=== PATIENT | male | born 1960 | race Caucasian/White ===

== ENCOUNTER 2022-11-03 19:10 | Emergency (ER) | payer MEDICARE, MEDICAID, SELFPAY ==
--- NOTE | ~2022-11-03 | CT_ITS ---
EXAMINATION: CT HEAD WITHOUT CONTRAST CLINICAL INFORMATION: Seizure COMPARISON: CT brain 11/11/2018. TECHNIQUE: Contiguous axial imaging was performed from the skull base to vertex without intravenous administration of contrast. This CT examination was performed using dose optimization techniques as appropriate, variously including the following: *Automated exposure control *Adjustment of mA and/or kV according to patient size (this includes techniques or standardized protocols for targeted exams where dose is matched to indication/reason for exam; i.e. extremities or head) *Use of iterative reconstruction technique DLP: 751 mGy-cm FINDINGS: There is no acute intra-axial, extra-axial bleed, masses or midline shift. There is no focal hypodensity seen to suspect any acute infarction evolution. There is no edema or midline shift. The lateral ventricles are symmetrical in size and configuration but enlarged. The ness to white matter differentiation is maintained normal. There is moderate cerebral atrophy likely secondary to seizure medicine. No focal parenchymal lesions seen suspected infarct. Bone windows reveal no calvarial abnormality. There is no scalp soft tissue abnormality. Bilateral paranasal sinuses and mastoid air cells are well-aerated. The craniovertebral junction and the C1-C2 alignment is normal. Visualized bilateral paranasal sinuses and mastoid air cells are well-aerated. CT/CT head/brain wo IV con IMPRESSION: No acute intracranial process seen. There is mild cerebral and moderate cerebral volume loss. No major change compared to previous study 11/11/2018.
[2022-11-03 19:21] VITALS: BP 113/51; BP 128/64; PULSE 73; PULSE 80; RESP 17; TEMP 36.6; O2SAT 100; O2SAT 98; BMI 19.8
--- NOTE | 2022-11-03 19:47 | PC.NURSE ---
pt FERNANDA from [facility], this rn assumed care @ 192. seizure precautions in place. VS stable. DR Rawls made aware of pt . pt seen by MD at this time awaiting orders at this time
--- NOTE | 2022-11-03 19:47 | ED.SEIZURE ---
HPI - Seizure General Chief Complaint: Seizure Stated Complaint: SEIZURE Time Seen by Provider: 11/03/22 19:23 Source: EMS Mode of arrival: EMS Limitations: other (Nonverbal at baseline, history of dementia and Down syndrome) History of Present Illness HPI Narrative: Patient [facility] the [facility]. Earlier this afternoon, patient had seizure, patient was eating a, started seizing for approximately 30 seconds, then became postictal for about a minute. By the time patient reached the emergency room, according to his caretakers, the patient was at baseline. Patient unable to give any significant history. Patient had verbal at baseline, may answer yes no questions occasionally. Related Data Allergies Allergy/AdvReac Type Severity Reaction Status Date / Time gluten [GLUTEN] Allergy Unknown UNK Unverified 07/31/20 18:09 Iodinated Contrast Media Allergy Unknown UNK Unverified 07/31/20 18:09 [IVP DYE] Review of Systems Review of Systems: Yes Unobtainable due to mental condition PMFSH Past Medical History Medical History (Updated 11/03/22 @ 22:47 by Vannesa Rawls MD) Alzheimer's dementia Celiac disease Down syndrome Social History Social History Advance Directives: No Advance Directives Information Provided: No Physical Exam Vital Signs: Vital Signs: Last Vital Signs Temp 97.2 F 11/03/22 22:00 Pulse 67 11/03/22 22:00 Resp 15 11/03/22 22:00 BP 95/55 L 11/03/22 22:00 Pulse Ox 99 11/03/22 22:00 O2 Del Method 11/03/22 22:00 BMI result Body Mass Index 19.8 Const: Other: Appearance: Alert. No acute distress. Eyes: Pupils equal, round and reactive to light. ENT: Pharynx normal. Neck: Normal inspection. Neck supple. No lymph nodes noted. No crepitus CVS: Normal heart rate and rhythm. Pulses normal. Normal S1 and S2 Respiratory: No respiratory distress. Breath sounds normal. No Wheezing. No rales Abdomen: Soft and nontender. No rigidity. No distention. Skin: Skin warm and dry. Normal skin color. Normal skin turgor. Extremities: No lower extremity edema. No Lacerations. No Rash Neuro: CN 2 through 12 grossly intact Psych: calm, cooperative Course Course Course Narrative: According to the [facility]itentiary staff, the patient did not fall or hit his head. Patient stood up, history of sitting. A tonic-clonic movements in a postictal period of approximately 1 minute. At this time, patient is back to baseline. Labs and CT scan is pending. It is possible that we may not be able to get a clear picture with a CT scan. Patient's labs are at baseline, lactic acid within normal limits, it is possible the patient may not have had a full seizure, possible pseudo-seizure. However, all of his labs were all baseline and CT scan of the head negative. I discussed with the [facility]iary staff that for a first-time seizure , starting anti seizure medication is not recommended. If patient has recurrent seizures, then he will need a full neurologic workup and likely starting medications. Here in the ED, patient has remained stable, patient has baseline low blood pressures in the high 80s and 90s per penitentiary staff. No seizure activity has been witnessed in the ED. Medical Decision Making Lab Data Result Diagrams: 11/03/22 20:25 11/03/22 20:25 Labs: Lab Results 11/03/22 11/03/22 11/03/22 Range/Units 20:25 20:25 20:25 WBC 4.6 L (4.8-10.8) X10*3/uL RBC 3.48 L (4.60-5.80) X10*6/uL Hgb 12.0 L (14.0-18.0) g/dl Hct 36.2 L (42.0-52.0) % MCV 104.0 H (80.0-98.0) fL MCH 34.5 H (27.0-33.0) pg MCHC 33.1 (31.0-36.0) g/dl RDW 15.2 (11.0-16.0) % Plt Count 150 L (160-400) X10*3/uL MPV 9.8 (9.4-12.4) fL Immature Gran % (Auto) 0.2 (0.0-0.4) % Neut % (Auto) 50.5 (45-73) % Lymph % (Auto) 37.0 (20-40) % [place] % (Auto) 8.8 (2-11) % Eos % (Auto) 2.8 (0-4) % Baso % (Auto) 0.7 (0-2) % Lymph # (Auto) 1.7 (1.2-4.9) X10*3/uL [place] # (Auto) 0.4 (0.1-1.2) X10*3/uL Eos # (Auto) 0.1 (0.0-0.4) X10*3/uL Baso # (Auto) 0.0 (0.0-0.2) X10*3/uL Abs Immat Gran (auto) 0.01 (0.00-0.03) X10*3/uL Absolute Neuts (auto) 2.3 (2.0-8.3) x10*3/uL Absolute Nucleated RBC 0.000 (0.0-0.012) X10*3/uL Nucleated RBC % (auto) 0.0 (0.0-0.2) /100WBC Sodium 139 (135-145) mmol/L Potassium 4.1 (3.3-5.1) mmol/L Chloride 104 (96-108) mmol/L Carbon Dioxide 27 (22-29) mmol/L Anion Gap 12 (12-20) BUN 22 H (9-16) mg/dL Creatinine 1.03 (0.5-1.4) mg/dL Estim Creat Clear Calc 45.9 Estimated GFR > 60 Random Glucose 102 (60-115) mg/dL Lactic Acid (0.5-2.0) mmol/L Calcium 8.8 (8.4-10.2) mg/dL Magnesium 2.0 (1.6-2.6) mg/dL Total Bilirubin 0.4 (0.0-1.0) mg/dL Direct Bilirubin < 0.2 (0.0-0.5) mg/dL AST 24 (5-37) U/L ALT 10 (0-40) U/L Alkaline Phosphatase 77 (39-117) U/L Total Protein 7.5 (6.5-8.0) g/dL Albumin 3.4 L (3.5-5.0) g/dL COVID-19 (MARYLOU) Negative (Negative) COVID-19 Clin Com See Note 11/03/22 Range/Units 20:36 WBC (4.8-10.8) X10*3/uL RBC (4.60-5.80) X10*6/uL Hgb (14.0-18.0) g/dl Hct (42.0-52.0) % MCV (80.0-98.0) fL MCH (27.0-33.0) pg MCHC (31.0-36.0) g/dl RDW (11.0-16.0) % Plt Count (160-400) X10*3/uL MPV (9.4-12.4) fL Immature Gran % (Auto) (0.0-0.4) % Neut % (Auto) (45-73) % Lymph % (Auto) (20-40) % [place] % (Auto) (2-11) % Eos % (Auto) (0-4) % Baso % (Auto) (0-2) % Lymph # (Auto) (1.2-4.9) X10*3/uL [place] # (Auto) (0.1-1.2) X10*3/uL Eos # (Auto) (0.0-0.4) X10*3/uL Baso # (Auto) (0.0-0.2) X10*3/uL Abs Immat Gran (auto) (0.00-0.03) X10*3/uL Absolute Neuts (auto) (2.0-8.3) x10*3/uL Absolute Nucleated RBC (0.0-0.012) X10*3/uL Nucleated RBC % (auto) (0.0-0.2) /100WBC Sodium (135-145) mmol/L Potassium (3.3-5.1) mmol/L Chloride (96-108) mmol/L Carbon Dioxide (22-29) mmol/L Anion Gap (12-20) BUN (9-16) mg/dL Creatinine (0.5-1.4) mg/dL Estim Creat Clear Calc Estimated GFR Random Glucose (60-115) mg/dL Lactic Acid 1.5 (0.5-2.0) mmol/L Calcium (8.4-10.2) mg/dL Magnesium (1.6-2.6) mg/dL Total Bilirubin (0.0-1.0) mg/dL Direct Bilirubin (0.0-0.5) mg/dL AST (5-37) U/L ALT (0-40) U/L Alkaline Phosphatase (39-117) U/L Total Protein (6.5-8.0) g/dL Albumin (3.5-5.0) g/dL COVID-19 (MARYLOU) (Negative) COVID-19 Clin Com Discharge Plan Discharge Clinical Impression: New onset seizure Patient Disposition: Home, Self-Care Instructions: Generalized Tonic Clonic Seizures (ED) Additional Instructions: Please follow-up with your primary care physician tomorrow. If you have any worsening or new symptoms, please return to the emergency room or call 911
--- NOTE | 2022-11-03 19:55 | PC.NURSE ---
resident sterile supervisor Alexsandra arrived at pt bedside. spoke with this rn. states that pt was sitting at dinner table, stood up, sat back down and began shaking. states there was no fall and no head stroke. Dr Rawls notified of this
[2022-11-03 20:00] VITALS: BP 101/58; PULSE 66; RESP 16; TEMP 36.4; O2SAT 99
[2022-11-03 20:30] LABS: MANUAL DIFF FLAG NO
[2022-11-03 20:31] LABS: Basophils Percent Auto 0.7 % (0-2); Eosinophils Absolute Auto 0.1 X10*3/uL (0.0-0.4); Eosinophils Percent Auto 2.8 % (0-4); Hematocrit 36.2 % (42.0-52.0); Imm Gran Abs Auto 0.01 X10*3/uL (0.00-0.03); Imm Gran Pct Auto 0.2 % (0.0-0.4); Lymphocytes Absolute Auto 1.7 X10*3/uL (1.2-4.9); Mean Corpuscular HGB Conc 33.1 g/dl (31.0-36.0); Mean Corpuscular Hemoglobin 34.5 pg (27.0-33.0); Mean Platelet Volume 9.8 fL (9.4-12.4); Monocytes Absolute Auto 0.4 X10*3/uL (0.1-1.2); Monocytes Percent Auto 8.8 % (2-11); Neutrophils Absolute Auto 2.3 x10*3/uL (2.0-8.3); Neutrophils Percent Auto 50.5 % (45-73); Platelet Count 150 X10*3/uL (160-400); Red Blood Count 3.48 X10*6/uL (4.60-5.80); Red Cell Distribution Width 15.2 % (11.0-16.0); White Blood Count 4.6 X10*3/uL (4.8-10.8)
[2022-11-03 20:46] LABS: COVID-19 Test Negative (Negative)
[2022-11-03 20:50] LABS: Alanine Aminotransferase 10 U/L (0-40); Albumin Level 3.4 g/dL (3.5-5.0); Alkaline Phosphatase 77 U/L (39-117); Anion Gap 12 (12-20); Aspartate Amino Transferase 24 U/L (5-37); Bilirubin Direct < 0.2 mg/dL (0.0-0.5); Bilirubin Total 0.4 mg/dL (0.0-1.0); Blood Urea Nitrogen 22 mg/dL (9-16); Calcium 8.8 mg/dL (8.4-10.2); Carbon Dioxide 27 mmol/L (22-29); Chloride 104 mmol/L (96-108); Creatinine Clr Calc Pharmacy 45.9; Estimated Glomerular Filt Rate > 60; Glucose Random 102 mg/dL (60-115); Potassium 4.1 mmol/L (3.3-5.1); Sodium 139 mmol/L (135-145); Total Protein 7.5 g/dL (6.5-8.0)
[2022-11-03 20:53] LABS: Lactic Acid 1.5 mmol/L (0.5-2.0)
[2022-11-03 21:16] VITALS: BP 91/42; PULSE 66; RESP 11
--- NOTE | 2022-11-03 21:19 | PC.NURSE ---
dr carson made aware of BP 91/42. pt staff member states pt takes midodrine. no new orders at this time
[2022-11-03 22:00] VITALS: BP 95/55; PULSE 67; RESP 15; TEMP 36.2; O2SAT 99
[2022-11-03 22:25] VITALS: BP 102/51; PULSE 70; RESP 14; O2SAT 98
[2022-11-03 22:49] VITALS: BP 92/58; PULSE 70; RESP 12; O2SAT 99
== END 2022-11-03 23:26 | disposition home or self-care (01) ==
PROVIDERS: Emergency Provider Emergency Medicine; PCP Internal Medicine
DX: R56.9 Unspecified convulsions (principal); Z20.822 Contact with and (suspected) exposure to COVID-19; G30.9 Alzheimer's disease, unspecified; F02.80 Dementia in other diseases classified elsewhere, unspecified severity, without behavioral disturbance, psychotic disturbance, mood disturbance, and anxiety; Q90.9 Down syndrome, unspecified
CPT/HCPCS: 70450; 80048; 80076; 83605; 83735; 85025; 87040; 87635; 99284

== ENCOUNTER 2023-01-08 19:07 | Emergency (ER) | payer MEDICARE, MEDICAID, SELFPAY ==
--- NOTE | ~2023-01-08 | CT_ITS ---
EXAMINATION: CT CHEST, ABDOMEN AND PELVIS WITHOUT CONTRAST CLINICAL INFORMATION: SBO? Nausea, vomiting and question of food bolus? Esophogeal obstruction? COMPARISON: CT abdomen pelvis 11/26/2018 TECHNIQUE: Multidetector volumetric imaging was performed from the thoracic inlet through the pubic symphysis without IV contrast. Sagittal and coronal reformatted images were obtained on the technologist's workstation. This CT examination was performed using dose optimization techniques as appropriate, variously including the following: *Automated exposure control *Adjustment of mA and/or kV according to patient size (this includes techniques or standardized protocols for targeted exams where dose is matched to indication/reason for exam; i.e. extremities or head) *Use of iterative reconstruction technique DLP: 1126 mGy-cm FINDINGS: CHEST: Lung: The lungs are clear without focal opacity or nodule. Mediastinum: There is an aberrant right subclavian artery that arises as the last branch of the aortic arch, passing behind the esophagus. Heart size is normal. No mediastinal or hilar lymphadenopathy is seen. No mediastinal emphysema is present. Pericardium/Pleura: No significant effusion. No pleural mass or thickening. Chest Wall/Axilla: Unremarkable ABDOMEN/PELVIS: Peritoneal Space: No significant free air or free fluid identified. Liver, Gallbladder, Biliary Tree: The liver is enlarged measuring 19.7 cm in greatest dimension. Attenuation of the liver appears greater than the spleen. No focal hepatic lesion or biliary ductal dilatation is present. The gallbladder is unremarkable with no evidence of radiopaque gallstones, gallbladder wall thickening, or obvious pericholecystic inflammatory changes. Pancreas: Unremarkable Spleen: Unremarkable Adrenal Glands: Unremarkable Kidneys and Ureters: The kidneys are normal in size, shape, and attenuation. Bilateral nonobstructing nephrolithiasis is present with increased stone burden when compared to the prior study. There is bilateral mild hydronephrosis and dilatation of proximal ureters. In the region of the distal ureter on the right, there is a new calcification which was not present on the prior exam measuring 3 mm which may represent an obstructing calculus. No renal masses are seen. Bladder: The bladder is markedly distended and slightly lobular with a symmetrically thickened wall. Gastrointestinal Tract: There is dilatation of the colon with a very redundant sigmoid with loops as large as 7.5 cm. There is some minimal thickening of the rectosigmoid wall. The small bowel does not appear to be dilated. The appendix is not seen with certainty but there is no evidence of appendicitis. Abdominal Wall: No significant hernia is appreciated. Lymph Nodes: No lymphadenopathy. Vascular: The aorta appears normal.. The IVC appears unremarkable. PELVIC VISCERA: Unremarkable OSSEUS STRUCTURES: Marked degenerative changes are noted in the spine with complete compression fracture and anterior wedging of L3. No bony destructive lesions are seen. CT/CT abdomen pelvis wo IV con IMPRESSION: 1. No evidence of esophageal obstruction. An apparent right subclavian is present which can rarely cause dysphagia lusoria, a rare condition characterized by swallowing impairment secondary to extrinsic compression of the esophagus by an aberrant right subclavian artery. 2. Bilateral nonobstructing nephrolithiasis with increased stone burden when compared to the prior study. 3. Bilateral hydronephrosis with a 3 mm calcification in the region of the distal right ureter which may represent an obstructing calculus. CT urography may be useful for further evaluation. 4. Marked dilatation of the sigmoid with some mild thickening of the rectosigmoid wall. No evidence of small bowel obstruction. 5. Incidental note made of hepatomegaly and degenerative changes in the spine with compression fracture of L3. Fleischner guidelines were followed.
--- NOTE | ~2023-01-08 | CT_ITS ---
EXAMINATION: CT SOFT TISSUE NECK WITHOUT CONTRAST CLINICAL INFORMATION: Question food bolus COMPARISON: None TECHNIQUE: Helical imaging was performed in the axial plane with generation of coronal and sagittal reformatted images. This CT examination was performed using dose optimization techniques as appropriate, variously including the following: *Automated exposure control *Adjustment of mA and/or kV according to patient size (this includes techniques or standardized protocols for targeted exams where dose is matched to indication/reason for exam; i.e. extremities or head) *Use of iterative reconstruction technique DLP: 272 mGy-cm FINDINGS: Exam quality degraded by motion artifact. No unexpected foreign body identified within the nasopharynx, oropharynx, hypopharynx. Piriform sinuses are distended with air. Unremarkable appearance of the laryngeal structures. Somewhat patulous air-filled upper thoracic esophagus noted. No gross soft tissue mass or lymphadenopathy. Thyroid gland is not seen and is either surgically absent or atrophic. Incidental finding of a aberrant right subclavian artery with retroesophageal course. Visualized upper lungs appear clear. Visualized intracranial contents grossly unremarkable, limited assessment. Visualized paranasal sinuses and mastoid air cells normally aerated. No acute fracture or suspicious appearing osseous lesion. Advanced diffuse cervical spondylosis. Disc degenerative changes in the imaged upper thoracic spine as well. Multilevel severe central spinal canal stenosis. CT/CT soft tissue neck wo IV con IMPRESSION: 1. Somewhat limited exam due to motion artifact. No unexpected foreign body identified within the nasopharynx, oropharynx, hypopharynx. 2. Patulous air-filled upper thoracic esophagus. 3. Advanced cervical spondylosis with multilevel severe central spinal canal stenosis.
[2023-01-08 19:19] VITALS: PULSE 75; O2SAT 100
[2023-01-08 19:25] VITALS: BMI 25.7
[2023-01-08 19:30] VITALS: BP 110/65; PULSE 74; RESP 15; O2SAT 97
--- NOTE | 2023-01-08 19:37 | ED.GENADULT ---
HPI - General Adult General Chief complaint: General Medical Stated complaint: Diff Swallowing/ Non verbal baseline Time Seen by Provider: 01/08/23 19:31 Source: RN notes reviewed and other (prison staff) Mode of arrival: ambulatory Limitations: no limitations History of Present Illness HPI narrative: [age] year male with history of in/disability, dementia, macrocytic anemia, esophageal stricture, celiac disease, Down syndrome, presents to ED for presentation of food bolus. Patient was sent from longterm due to choking since 17:45. His state patient was eating pork veggies and potatoes that was not pureed enough and then all the sudden started choking and since then has not improved. States patient cannot tolerate any liquids or food and vomits everything he ingested. He denies any abdominal pain. Patient nonverbal. Related Data Previous Rx's Medication Instructions Recorded cefuroxime axetil 250 mg tablet 250 mg PO BID 7 days #14 tabs 01/09/23 tamsulosin 0.4 mg capsule (Flomax) 0.4 mg PO DAILY 7 days #7 caps 01/09/23 Allergies Allergy/AdvReac Type Severity Reaction Status Date / Time gluten [GLUTEN] Allergy Unknown UNK Unverified 07/31/20 18:09 Iodinated Contrast Media Allergy Unknown UNK Unverified 07/31/20 18:09 [IVP DYE] Review of Systems Review of Systems: Food bolus. choking, drooling, and vomitting Yes all other systems are reviewed and are negative [facility] Past Medical History Medical History (Updated 01/09/23 @ 01:44 by KRISTEL Mackey) Alzheimer's dementia Celiac disease Down syndrome Social History Social History Advance Directives: No Advance Directives Information Provided: Yes Physical Exam ED Vital Signs: Vital Signs - 24 hr 01/08/23 19:30 01/09/23 00:20 Temperature 98.2 F Pulse Rate 74 69 Respiratory Rate 15 11 L Blood Pressure 110/65 94/61 Pulse Oximetry 97 Oxygen Delivery Method Room Air Room Air BMI result Body Mass Index 25.7 Const General: cooperative, well developed, alert, awake, Physically active and in distress (chocking, vomitting, and drooling) Orientation/consciousness: oriented to person, oriented to place, oriented to time and patient oriented x3 HENMT Head: Yes normal to inspection, Yes No palpable skull fracture present, Yes normocephalic, Yes atraumatic and No abrasion Eyes General: appearance normal, both eyes and all related structures Neck Neck: Yes normal visual inspection, Yes full ROM, Yes no lymphadenopathy, Yes no meningeal signs, Yes trachea midline, Yes supple, No anterior neck swelling and No tender Chest Chest palpation & inspection: normal inspection of the chest and normal palpation of entire chest wall Resp Effort & Inspection: normal respiratory effort and able to speak in complete sentences Auscultation: clear to auscultation bilaterally Cardio Jugular venous distension: no JVD Heart sounds: S1 normal heart sound present and S2 normal heart sound present GI Inspection: Yes normal to inspection and No abdominal wall ecchymosis Palpation (GI): Soft to palpation, not firm, nontender, no guarding and not rigid General: No CVA tenderness and Yes no CVA tenderness Back/Spine/Pelvis Back: no CVA tenderness, No CVA tenderness and No back tenderness Skin General skin exam: no rashes or lesions noted and elasticity normal Neuro Other: Negative facial droop. Negative slurred speech. All extremities equal strength 5+. [id number] and rapid hand movement intact. Negative Romberg. Negative pronator drift. NIH score 0. General: oriented to person, oriented to place, oriented to time, patient oriented x3, gait normal, tone normal, moves all extremities, Normal light touch and pain sensation, no meningeal signs, no focal motor deficits and CN's II-XI intact bilaterally Extrem General: Yes normal to inspection and Yes full ROM Psych Appearance: grossly normal, well kempt and not disheveled Course Course Course Narrative: Patient presented like food bolus. patient is chocking, drooling, vomitting, and not able to tolerate any oral puree or liquid Return was confirmed with staff member and longterm. Glucagon ordered. Labs fluids ordered. Reevaluation(s) Reevaluation #1: Patient given 2 mg of IV glucagon total. Patient sent for imaging mentions no small bowel obstruction and also sees any dilation of the esophagus due to history of esophageal stricture. Also check for food bolus. Patient now able to tolerate p.o. and liquids. Patient baseline food arer Puree rate. Patient ate applesauce and drink apple juice without any issues. Waiting for results of imaging. Patient looks better than initial presentation Time: 21:49 Reevaluation #2: Patient sleeping comfortably in bed. Esophageal food bolus resolved. Patient CT scan of chest states subclavian artery behind esophagus causing rare condition called dysphagia lusoria. This was discussed with Dr. Mars Supervising ED Attending and he reviewed patient's imaging and states this very unlikely and states otherwise patient can still follow up outpatient with Gastroenterology. Chocking due to food bolus caused by known esophageal stricture. Food bolus resolved. patient ate whole cart of apple suace and cart of apple juice. patient has kidney stone but not /abdominal symptoms. Time: 00:22 Medications Administered Discontinued Medications Generic Name Dose Route Start Last Admin Trade Name Freq PRN Reason Stop Dose Admin Glucagon 1 mg 01/08/23 19:37 01/08/23 19:43 Glucagon,Human Recombinant 1 Mg/Ml Vial IVPUSH 01/08/23 19:38 1 mg ONCE ONE Administration Glucagon 1 mg 01/08/23 20:00 01/08/23 20:05 Glucagon,Human Recombinant 1 Mg/Ml Vial IVPUSH 01/08/23 20:01 1 mg ONCE ONE Administration Sodium Chloride 1,000 mls @ 999 mls/hr 01/08/23 19:45 01/08/23 21:58 Ns IV 01/08/23 20:45 Infused .Q1H1M STA Infusion Medical Decision Making Medical Decision Making [place] Narrative: 62-year-old male presents to the ED for chocking on food, drooling, nausea, vomitting, and not able to tolerate any PO. Patient's history of esophageal stricture, severe intellectual disability, Alzheimer's. Patient was worked up as food bolus. Patient had labs, imaging, and given glucagon. Differential Diagnosis Differential Diagnoses: The differential diagnosis associated with the presentation includes (Food bolus, small-bowel obstruction, GERD, ) Admission/Observation Consideration of admission/observation: Escalation of care including admission/observation considered Lab Data [place] Lab Attestation statement: I reviewed the patient's lab results. 01/08/23 19:59 01/08/23 19:59 Labs: Lab Results 01/08/23 01/08/23 01/08/23 Range/Units 19:59 19:59 19:59 WBC 5.7 (4.8-10.8) X10*3/uL RBC 3.44 L (4.60-5.80) X10*6/uL Hgb 12.0 L (14.0-18.0) g/dl Hct 35.5 L (42.0-52.0) % MCV 103.2 H (80.0-98.0) fL MCH 34.9 H (27.0-33.0) pg MCHC 33.8 (31.0-36.0) g/dl RDW 15.2 (11.0-16.0) % Plt Count 177 (160-400) X10*3/uL MPV 9.7 (9.4-12.4) fL Immature Gran % (Auto) 0.5 H (0.0-0.4) % Neut % (Auto) 59.9 (45-73) % Lymph % (Auto) 29.2 (20-40) % [place] % (Auto) 8.3 (2-11) % Eos % (Auto) 1.2 (0-4) % Baso % (Auto) 0.9 (0-2) % Lymph # (Auto) 1.7 (1.2-4.9) X10*3/uL [place] # (Auto) 0.5 (0.1-1.2) X10*3/uL Eos # (Auto) 0.1 (0.0-0.4) X10*3/uL Baso # (Auto) 0.1 (0.0-0.2) X10*3/uL Abs Immat Gran (auto) 0.03 (0.00-0.03) X10*3/uL Absolute Neuts (auto) 3.4 (2.0-8.3) x10*3/uL Absolute Nucleated RBC 0.000 (0.0-0.012) X10*3/uL Nucleated RBC % (auto) 0.0 (0.0-0.2) /100WBC PT 12.2 (10.0-13.1) SEC INR 1.1 (0.9-1.1) APTT 34.1 (26.0-36.4) SEC Sodium 140 (135-145) mmol/L Potassium 4.2 (3.3-5.1) mmol/L Chloride 103 (96-108) mmol/L Carbon Dioxide 31 H (22-29) mmol/L Anion Gap 10 L (12-20) BUN 16 (9-16) mg/dL Creatinine 1.11 (0.5-1.4) mg/dL Estim Creat Clear Calc 58.5 Estimated GFR > 60 Random Glucose 158 H (60-115) mg/dL Calcium 8.6 (8.4-10.2) mg/dL Total Bilirubin 0.3 (0.0-1.0) mg/dL AST 23 (5-37) U/L ALT 13 (0-40) U/L Alkaline Phosphatase 85 (39-117) U/L Total Protein 7.9 (6.5-8.0) g/dL Albumin 3.4 L (3.5-5.0) g/dL Urine Color Urine Appearance Urine pH (5.0-9.0) Ur Specific [place] (1.005-1.025) Urine Protein (Neg-Trace) mg/dL Urine Glucose (UA) (Negative) mg/dL Urine Ketones (Negative) mg/dL Urine Blood (Negative) Urine Nitrite (Negative) Ur Leukocyte Esterase (Negative) Urine RBC (0-2) /HPF Urine WBC (0-5) /HPF Ur Squamous Epith Cells (0-2) /HPF Urine Bacteria (None Seen) Hyaline Casts (0-2) /LPF COVID-19 (MARYLOU) (Negative) COVID-19 Clin Com 01/08/23 01/09/23 Range/Units 20:00 00:28 WBC (4.8-10.8) X10*3/uL RBC (4.60-5.80) X10*6/uL Hgb (14.0-18.0) g/dl Hct (42.0-52.0) % MCV (80.0-98.0) fL MCH (27.0-33.0) pg MCHC (31.0-36.0) g/dl RDW (11.0-16.0) % Plt Count (160-400) X10*3/uL MPV (9.4-12.4) fL Immature Gran % (Auto) (0.0-0.4) % Neut % (Auto) (45-73) % Lymph % (Auto) (20-40) % [place] % (Auto) (2-11) % Eos % (Auto) (0-4) % Baso % (Auto) (0-2) % Lymph # (Auto) (1.2-4.9) X10*3/uL [place] # (Auto) (0.1-1.2) X10*3/uL Eos # (Auto) (0.0-0.4) X10*3/uL Baso # (Auto) (0.0-0.2) X10*3/uL Abs Immat Gran (auto) (0.00-0.03) X10*3/uL Absolute Neuts (auto) (2.0-8.3) x10*3/uL Absolute Nucleated RBC (0.0-0.012) X10*3/uL Nucleated RBC % (auto) (0.0-0.2) /100WBC PT (10.0-13.1) SEC INR (0.9-1.1) APTT (26.0-36.4) SEC Sodium (135-145) mmol/L Potassium (3.3-5.1) mmol/L Chloride (96-108) mmol/L Carbon Dioxide (22-29) mmol/L Anion Gap (12-20) BUN (9-16) mg/dL Creatinine (0.5-1.4) mg/dL Estim Creat Clear Calc Estimated GFR Random Glucose (60-115) mg/dL Calcium (8.4-10.2) mg/dL Total Bilirubin (0.0-1.0) mg/dL AST (5-37) U/L ALT (0-40) U/L Alkaline Phosphatase (39-117) U/L Total Protein (6.5-8.0) g/dL Albumin (3.5-5.0) g/dL Urine Color Yellow Urine Appearance Cloudy Urine pH 7.0 (5.0-9.0) Ur Specific [place] 1.015 (1.005-1.025) Urine Protein Trace (Neg-Trace) mg/dL Urine Glucose (UA) Negative (Negative) mg/dL Urine Ketones Negative (Negative) mg/dL Urine Blood Negative (Negative) Urine Nitrite Negative (Negative) Ur Leukocyte Esterase Large (3+) H (Negative) Urine RBC 0-2 (0-2) /HPF Urine WBC >50 H (0-5) /HPF Ur Squamous Epith Cells 0-2 (0-2) /HPF Urine Bacteria Trace (None Seen) Hyaline Casts 0-2 (0-2) /LPF COVID-19 (MARYLOU) Negative (Negative) COVID-19 Clin Com See Note Independent Interpretation I performed an independent interpretation of an: CT Scan Radiology Impression Discussion of test interpretation with radiology: I have reviewed the radiologist's reading. Independent Historian Clinical information obtained from an independent historian. History obtained from or confirmed by: Other (prison staff member) Prescription Management I considered prescription management with: Antibiotic Discharge Plan Discharge Clinical Impression: Food impaction of esophagus, Acute UTI, Calculus, kidney Patient Disposition: Home, Self-Care Instructions: Kidney Stones (ED), Urinary Tract Infection in Men (ED), Food Impaction (ED) Additional Instructions: You were seen in the ED for food bolus that resolved. Your labs came back normal. Your urine shows a urinary tract infection. Your CT scan reading shows right kidney stone and also right subclavian artery behind you're esophagus which can rarely cause dysphagia lusoria. You will need follow-up with Gastroenterology and Urology. Return to the ED immediately for any choking, drooling, inability tolerate solid food/liquid, chest pain, shortness of breath abdominal pain, blood in the urine, fever, chills, or any other concerning symptoms. Recommend pureed diet. Recommend crushing prescribed meds. Prescriptions: New cefuroxime axetil 250 mg tablet 250 mg PO BID 7 Days Qty: 14 0RF tamsulosin [Flomax] 0.4 mg capsule 0.4 mg PO DAILY 7 Days Qty: 7 0RF Referrals: [facility] Gastroenterology Services [Provider Group] (Resolved food bolus. esophageal stricuture. possible dysphagia lusoria) [facility] Urology Services [Provider Group] (RIght ureter stone. uTI) Print Language: Monegasque
[2023-01-08] MEDS: 0.9 % Sodium Chloride 1,000 ML 999 ML IV (20:01)
[2023-01-08 20:06] LABS: MANUAL DIFF FLAG NO
[2023-01-08 20:09] LABS: Basophils Absolute Auto 0.1 X10*3/uL (0.0-0.2); Basophils Percent Auto 0.9 % (0-2); Eosinophils Absolute Auto 0.1 X10*3/uL (0.0-0.4); Eosinophils Percent Auto 1.2 % (0-4); Hematocrit 35.5 % (42.0-52.0); Imm Gran Abs Auto 0.03 X10*3/uL (0.00-0.03); Imm Gran Pct Auto 0.5 % (0.0-0.4); Lymphocytes Absolute Auto 1.7 X10*3/uL (1.2-4.9); Lymphocytes Percent Auto 29.2 % (20-40); Mean Corpuscular HGB Conc 33.8 g/dl (31.0-36.0); Mean Corpuscular Hemoglobin 34.9 pg (27.0-33.0); Mean Corpuscular Volume 103.2 fL (80.0-98.0); Mean Platelet Volume 9.7 fL (9.4-12.4); Monocytes Absolute Auto 0.5 X10*3/uL (0.1-1.2); Monocytes Percent Auto 8.3 % (2-11); Neutrophils Absolute Auto 3.4 x10*3/uL (2.0-8.3); Neutrophils Percent Auto 59.9 % (45-73); Platelet Count 177 X10*3/uL (160-400); Red Blood Count 3.44 X10*6/uL (4.60-5.80); Red Cell Distribution Width 15.2 % (11.0-16.0); White Blood Count 5.7 X10*3/uL (4.8-10.8)
[2023-01-08 20:15] LABS: INTERNATIONAL NORM RATIO 1.1 (0.9-1.1); Prothrombin Time 12.2 SEC (10.0-13.1)
[2023-01-08 20:17] LABS: Partial Thromboplastin Time 34.1 SEC (26.0-36.4)
[2023-01-08 20:22] LABS: COVID-19 Test Negative (Negative); IDNOW Serial# 6674DD1D
[2023-01-08 20:33] LABS: Alanine Aminotransferase 13 U/L (0-40); Albumin Level 3.4 g/dL (3.5-5.0); Alkaline Phosphatase 85 U/L (39-117); Anion Gap 10 (12-20); Aspartate Amino Transferase 23 U/L (5-37); Bilirubin Total 0.3 mg/dL (0.0-1.0); Blood Urea Nitrogen 16 mg/dL (9-16); Calcium 8.6 mg/dL (8.4-10.2); Carbon Dioxide 31 mmol/L (22-29); Chloride 103 mmol/L (96-108); Creatinine Clr Calc Pharmacy 58.5; Estimated Glomerular Filt Rate > 60; Glucose Random 158 mg/dL (60-115); Potassium 4.2 mmol/L (3.3-5.1); Sodium 140 mmol/L (135-145); Total Protein 7.9 g/dL (6.5-8.0)
--- NOTE | 2023-01-08 20:34 | MHC.EDTECH ---
Pt was incontinent. Pt was given owen care and repositioned.
--- NOTE | 2023-01-08 21:58 | PC.NURSE ---
pt casework specialist from [facility] at bedside. per ita morales po challenge performed. pt provided with apple sauce and apple juice. pt tolerated well with no s/s of chocking, vomiting, or spitting up. jolanta morales at bedside during performance of po challenge. [facility] remains at bedside at this time, instructed to use callbell for any new needs
[2023-01-09 00:20] VITALS: BP 94/61; PULSE 69; RESP 11; TEMP 36.8
[2023-01-09 00:34] LABS: Appearance Urine Cloudy; Color Urine Yellow; Glucose Urine UA Negative (Negative); Leukocyte Esterase Urine Large (3+) (Negative); Nitrite Urine Negative (Negative); Specific Gravity - Urine 1.015 (1.005-1.025); UMIC TRIGGER UACC YES; Urine Blood Negative (Negative); Urine Ketones Negative (Negative); Urine Protein Trace mg/dL (Neg-Trace)
[2023-01-09 01:14] LABS: Bacteria Urine Trace (None Seen); Hyaline Casts Urine 0-2 /LPF (0-2); RBC Urine 0-2 /HPF (0-2); Squamous Epithelial Cell Urine 0-2 /HPF (0-2); UACC Culture Trigger YES; WBC Urine >50 /HPF (0-5)
[2023-01-09 02:51] VITALS: BP 95/48; PULSE 67; RESP 12; TEMP 36.7; O2SAT 99
--- NOTE | 2023-01-09 02:52 | PC.NURSE ---
pt patient case manager from retirement at bedside at this time.provided with discharge packet at this time. verbalized understanding of discharge packet. iv removed. [place] catheter removed. pt brought to patient case manager care via [place] by vision impaired teacher
== END 2023-01-09 02:54 | disposition home or self-care (01) ==
PROVIDERS: Physician Assistant; Emergency Provider Emergency Medicine Emergency Medical Services
DX: T18.128A Food in esophagus causing other injury, initial encounter (principal); X58.XXXA Exposure to other specified factors, initial encounter; N39.0 Urinary tract infection, site not specified; N20.0 Calculus of kidney; R11.10 Vomiting, unspecified; Z20.822 Contact with and (suspected) exposure to COVID-19; K90.0 Celiac disease; D53.9 Nutritional anemia, unspecified; G30.9 Alzheimer's disease, unspecified; F02.80 Dementia in other diseases classified elsewhere, unspecified severity, without behavioral disturbance, psychotic disturbance, mood disturbance, and anxiety; Q90.9 Down syndrome, unspecified; Y93.89 Activity, other specified; Y92.049 Unspecified place in boarding-house as the place of occurrence of the external cause; Y99.9 Unspecified external cause status
CPT/HCPCS: 70490; 71250; 74176; 80053; 81001; 81003; 85025; 85610; 85730; 87086; 87088; 87186; 87635; 96361; 96374; 96376; 99284; J1610

== ENCOUNTER 2023-01-28 11:03 | Emergency (ER) | payer MEDICARE, MEDICAID, SELFPAY ==
[2023-01-28 11:28] VITALS: BP 100/64; PULSE 83; RESP 18; TEMP 37.1; O2SAT 96; BMI 25.0
--- NOTE | 2023-01-28 11:28 | ED_ITS ---
HPI - General Adult General Chief complaint: Extremity Problem Stated complaint: Swollen, warm to touch R foot Time Seen by Provider: 01/28/23 11:36 Source: other (senior care staff) Mode of arrival: wheelchair Limitations: other (patient is non-verbal at baseline) History of Present Illness HPI narrative: Patient is a 63 year old assigned male at with a history of down syndrome, alzheimers, and baseline non-verbal presenting to the emergency department today with right great toe redness and swelling. Patient's senior care staff states that the patient was at his day program when they noticed right great toe redness and swelling. retirement staff states that the patient was just recently on antibiotics for something else at the beginning of this month. Staff states that the patient is acting otherwise appropriate, eating and drinking well. Severity: mild Severity scale (1-10): 2 Relieving factors: none Exacerbating factors: none Associated symptoms: denies other symptoms Treatments prior to arrival: none Related Data Previous Rx's Medication Instructions Recorded cefuroxime axetil 250 mg tablet 250 mg PO BID 7 days #14 tabs 01/09/23 tamsulosin 0.4 mg capsule (Flomax) 0.4 mg PO DAILY 7 days #7 caps 01/09/23 ibuprofen 800 mg tablet 800 mg PO Q6H PRN pain #14 tabs 01/28/23 Allergies Allergy/AdvReac Type Severity Reaction Status Date / Time gluten [GLUTEN] Allergy Unknown UNK Unverified 07/31/20 18:09 Iodinated Contrast Media Allergy Unknown UNK Unverified 07/31/20 18:09 [IVP DYE] Review of Systems Review of Systems: Yes Other (patient is non-verbal at baseline) Constitutional: Constitutional: Denies fever(s) Eyes: Eyes: Denies eye discharge ENT: Denies neck mass Cardiovascular: Cardiovascular: Denies syncope, Denies dyspnea and Denies dyspnea on exertion Respiratory: Respiratory: Denies cough, Denies dyspnea and Denies dyspnea on exertion Gastrointestinal: Gastrointestinal: Reports no additional gastrointestinal complaints, Denies abdominal pain, Denies melena, Denies hematochezia, Denies change in bowel habits and Denies change in stool character Genitourinary: Genitourinary: Reports no additional male genitourinary complaints, Denies hematuria, Denies oliguria, Denies difficulty urinating, Denies dysuria, Denies urinary frequency, Denies urinary hesitancy, Denies urinary incontinence and Denies urinary urgency Musculoskeletal: Musculoskeletal: Reports no additional musculoskeletal complaints, Denies numbness and Denies tingling Comments: right great toe redness and swelling Neurologic: Denies syncope, Denies numbness and Denies tingling Psychiatric: Psychiatric: Reports no additional psychiatric complaints Endocrine: Endocrine: Reports no additional endocrine complaints Hematologic/Lymphatic: Hematologic/Lymphatic: Reports no additional hematologic/lymphatic complaints Allergic/Immunologic: Allergic/Immunologic: Reports no additional allergic/immunologic complaints [facility] Past Medical History Attestation statement: The following information was validated with the patient. (all information was validated by senior care staff) Source: old records reviewed, nursing notes reviewed and other (senior care staff and senior care paperwork) Medical History (Updated 01/28/23 @ 11:35 by KRISTEL Shepherd) Alzheimer's dementia Celiac disease Down syndrome Social History Social History Advance Directives: No Advance Directives Information Provided: Yes Physical Exam ED Vital Signs: Vital Signs - 24 hr 01/28/23 11:28 Temperature 98.8 F Pulse Rate 83 Respiratory Rate 18 Blood Pressure 100/64 Pulse Oximetry 96 Oxygen Delivery Method Room Air BMI result Body Mass Index 25.0 Const General: cooperative, no acute distress, alert and awake Nutritional Appearance: well nourished Limitations: no limitations HENMT Head: Yes normal to inspection and Yes atraumatic Ears: hearing grossly normal bilaterally and external ears normal General nose exam: Normal external nose present, no nasal discharge noted and no epistaxis Face and sinus: Yes normal facial exam, No abrasion and No laceration Mouth: Normal oral and palatal mucosa present, no drooling and no muffled voice Eyes General: appearance normal, both eyes and all related structures Periorbital: periorbital findings normal Eyelids: Yes eyelids normal Conjunctivae: conjunctivae normal Pupils: Equal, round and reactive pupils present EOM: EOMs intact bilaterally Neck Neck: Yes normal visual inspection, Yes full ROM and Yes no lymphadenopathy Chest Chest palpation & inspection: normal inspection of the chest Resp Effort & Inspection: normal respiratory effort and able to speak in complete sentences Auscultation: clear to auscultation bilaterally Cardio Rate: regular rate Rhythm: regular rhythm GI Inspection: Yes normal to inspection Neuro General: moves all extremities Cranial nerves: Yes Equal, round and reactive pupils present Extrem Other: minimal swelling and redness to the right great toe General: Yes full ROM and Yes capillary refill normal Psych Appearance: grossly normal Mental Status: mental status grossly normal Affect: normal affect Attitude: cooperative Thought process: Normal thought process present Thought content: Normal thought content present Insight: Good insight present (Psych) Medical Decision Making Medical Decision Making MDM Narrative: Patient is a 63 year old assigned male at with a history of down syndrome and alzheimers with non-verbal status at baseline presenting to the emergency department today with right great toe redness and swelling. Patient's physical exam showed minimal right great toe redness and swelling consistent with gout. I explained my physical exam findings to the patient and the patient's senior care staff. I answered all questions asked by the patient's senior care staff. I stressed the importance of the patient following up with his primary care provider. I stressed the importance of the patient returning to the emergency department immediately if his symptoms were to worsen or if he were to develop any dizziness, shortness of breath, difficulty breathing, chest pain, blurry vision, loss of vision, nausea, vomiting, abdominal pain, fever, chills, back pain, or any other complaints. Patient's senior care staff verbalized agreement and understanding with this treatment plan and discharge. Differential Diagnosis Differential Diagnoses: The differential diagnosis associated with the presentation includes gout Independent Historian Clinical information obtained from an independent historian. History obtained from or confirmed by: Other (senior care staff) Discharge Plan Discharge Clinical Impression: Gout Patient Disposition: Home, Self-Care Instructions: Gout (ED) Additional Instructions: Follow up with your primary care provider. Return to the emergency department immediately if your symptoms worsen or if you develop any dizziness, shortness of breath, difficulty breathing, chest pain, blurry vision, loss of vision, nausea, vomiting, abdominal pain, fever, chills, back pain, or any other complaints. Prescriptions: New ibuprofen 800 mg tablet 800 mg PO Q6H PRN (Reason: pain) Qty: 14 0RF Rx Instructions: Start medication upon receiving No Action cefuroxime axetil 250 mg tablet 250 mg PO BID 7 Days Qty: 14 0RF tamsulosin [Flomax] 0.4 mg capsule 0.4 mg PO DAILY 7 Days Qty: 7 0RF Referrals: Hong Griffith III, MD [Primary Care Provider] - Interventions: ED Discharge Assessment Last Done: 01/28/23 11:38 Discharge Date/Time: 01/28/23 11:40 Print Language: Polish
== END 2023-01-28 11:40 | disposition home or self-care (01) ==
LOC: HO.ED 11:40
PROVIDERS: Emergency Provider Emergency Medicine; PCP Internal Medicine
DX: M10.9 Gout, unspecified (principal)
CPT/HCPCS: 99282; 99283

== ENCOUNTER 2024-08-02 18:42 | Emergency (ER) | payer MEDICARE, MEDICAID, SELFPAY ==
[2024-08-02 18:50] VITALS: BP 108/84; PULSE 84
[2024-08-02 19:06] VITALS: BP 113/71; PULSE 81; RESP 16; TEMP 37.3; O2SAT 96; BMI 23.5
--- NOTE | 2024-08-02 20:00 | ECG_ITS ---
Test Reason : ANXIETY Blood Pressure : / mmHG Vent. Rate : 076 BPM Atrial Rate : 076 BPM P-R Int : 118 ms QRS Dur : 076 ms QT Int : 398 ms P-R-T Axes : 040 060 050 degrees QTc Int : 447 ms Normal sinus rhythm Normal ECG When compared with ECG of 27-NOV-2018 13:46, ST no longer elevated in Anterior leads Nonspecific T wave abnormality, improved in Inferior leads Referred By: Vannesa Rawls Electronically Signed By:FELISA ARDON
--- NOTE | 2024-08-02 20:01 | PC.NURSE ---
in to see pt, pt has a sitter from the detention, she states, the patient's bp was low, he was crying, more than normal, banging at his head, and he was ness in color. Pt is non verbal, but he is crying and putting his hand to his head, when asked about pain.
--- NOTE | 2024-08-02 22:58 | ED_ITS ---
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 Vannesa Rawls HPI narrative: Patient comes in the emergency room from a [place] [facility]. According to the staff, patient has been crying more than usual. According to the staff, earlier today patient had a witnessed syncopal episode. Patient was taken to [facility], evaluated for syncope and then discharged. Since patient got home, the staff reports that he is being acting different, more tearful. Patient is unable to verbalize his needs. Related Data Home Medications ?Medication ?Instructions ?Recorded ?Confirmed acetaminophen 325 mg capsule 650 mg PO Q6H PRN 04/08/23 (Tylenol) bacitracin 500 unit/gram topical 1 appl topical TID 04/08/23 ointment benzonatate 100 mg capsule 100 mg PO BID PRN 04/08/23 ketoconazole 2 % topical cream 1 appl topical BID 04/08/23 lactulose 10 gram/15 mL oral 10 g PO DAILY 04/08/23 solution (Enulose) levothyroxine 50 mcg tablet 56 mcg PO QWEEK 04/08/23 lorazepam 1 mg tablet (Ativan) 1 mg PO DAILY PRN 04/08/23 menthol 0.44 %-zinc oxide 20.6 % 1 appl topical QID PRN 04/08/23 topical ointment (Calmoseptine) mirtazapine 7.5 mg tablet 7.5 mg PO BEDTIME 04/08/23 nystatin 100,000 unit/gram topical 1 appl topical DAILY 04/08/23 cream Previous Rx's ?Medication ?Instructions ?Recorded cefuroxime axetil 500 mg tablet 500 mg PO Q12H 10 days #20 tabs 04/08/23 fluconazole 150 mg tablet 150 mg PO Q3D 2 doses #2 tabs 04/08/23 (Diflucan) nystatin 100,000 unit/gram topical 1 appl topical BID 14 days #60 04/08/23 powder grams cefuroxime axetil 250 mg tablet 250 mg PO BID #14 tabs 08/03/24 Allergies Allergy/AdvReac Type Severity Reaction Status Date / Time gluten [GLUTEN] Allergy Unknown UNK Verified 08/02/24 19:10 Iodinated Contrast Media Allergy Unknown UNK Verified 08/02/24 19:10 [IVP DYE] Review of Systems 2 Review of Systems: Yes Unobtainable due to mental condition COUNTS INCLUDE 234 BEDS AT THE [facility] Past Medical History Medical History Alzheimer's dementia Down syndrome Celiac disease Social History Social History Patient Tobacco Use Status: Never used Tobacco Smoked in Last 30 Days: No Use of substances other than those prescribed or required for medical reasons: No Advance Directives: No Advance Directives Information Provided: No Do you have a plan to hurt others: No Plan Physical Exam 2 Vital Signs: Vital Signs: Last Vital Signs Temp 99.0 F 08/03/24 00:50 Pulse 72 08/03/24 00:50 Resp 20 08/03/24 00:50 BP 96/70 08/03/24 00:50 Pulse Ox 98 08/03/24 00:50 O2 Del Method Room Air 08/03/24 00:50 BMI result Body Mass Index 23.5 Const: Other: Appearance: Alert. Oriented X3. No acute distress. Eyes: Pupils equal, round and reactive to light. ENT: Pharynx normal. Neck: Normal inspection. Neck supple. No lymph nodes noted. No crepitus CVS: Normal heart rate and rhythm. Pulses normal. Normal S1 and S2 Respiratory: No respiratory distress. Breath sounds normal. No Wheezing. No rales Abdomen: Soft and nontender. No rigidity. No distention. Skin: Skin warm and dry. Normal skin color. Normal skin turgor. Extremities: No lower extremity edema. No Lacerations. No Rash Neuro: Oriented X 3. No motor deficit. No sensory deficit. Moving all extremities. No slurred speech. CN 2 through 12 grossly intact Psych: calm, cooperative, intermittently laughing and becomes tearful Course Course Course Narrative: Patient is unwilling to verbalize his needs. We will repeat lab work. So far, patient looks comfortable, no obvious signs of trauma, patient is not in distress. Vitals normal Medical Decision Making Medical Decision Making MDM Narrative: My interpretation of labs: Patient's hematology and chemistry stable. Patient does have a UTI. Positive nitrates. Since patient is unable to express his symptoms, we will go ahead and treat. Differential Diagnosis Differential Diagnoses: The differential diagnosis associated with the presentation includes (Anxiety, depression, UTI) Lab Data MDM Lab Attestation statement: I reviewed the patient's lab results. 08/02/24 23:08 08/02/24 23:08 Labs: Lab Results 08/02/24 08/03/24 Range/Units 23:08 00:54 WBC 4.9 (4.8-10.8) X10*3/uL RBC 3.27 L (4.60-5.80) X10*6/uL Hgb 11.6 L (14.0-18.0) g/dl Hct 33.3 L (42.0-52.0) % MCV 101.8 H (80.0-98.0) fL MCH 35.5 H (27.0-33.0) pg MCHC 34.8 (31.0-36.0) g/dl RDW 15.0 (11.0-16.0) % Plt Count 143 L (160-400) X10*3/uL MPV 9.9 (9.4-12.4) fL Immature Gran % (Auto) 0.8 H (0.0-0.4) % Neut % (Auto) 48.6 (45-73) % Lymph % (Auto) 34.1 (20-40) % [place] % (Auto) 15.5 H (2-11) % Eos % (Auto) 0.4 (0-4) % Baso % (Auto) 0.6 (0-2) % Lymph # (Auto) 1.7 (1.2-4.9) X10*3/uL [place] # (Auto) 0.8 (0.1-1.2) X10*3/uL Eos # (Auto) 0.0 (0.0-0.4) X10*3/uL Baso # (Auto) 0.0 (0.0-0.2) X10*3/uL Abs Immat Gran (auto) 0.04 H (0.00-0.03) X10*3/uL Absolute Neuts (auto) 2.4 (2.0-8.3) x10*3/uL Absolute Nucleated RBC 0.000 (0.0-0.012) X10*3/uL Nucleated RBC % (auto) 0.0 (0.0-0.2) /100WBC Sodium 140 (135-145) mmol/L Potassium 4.1 (3.3-5.1) mmol/L Chloride 106 (96-108) mmol/L Carbon Dioxide 28 (22-29) mmol/L Anion Gap 10 L (12-20) BUN 23 H (9-16) mg/dL Creatinine 0.96 (0.5-1.4) mg/dL Estim Creat Clear Calc 50.5 Estimated GFR > 60 Random Glucose 102 (60-115) mg/dL Calcium 8.6 (8.4-10.2) mg/dL Total Bilirubin 0.2 (0.0-1.0) mg/dL Direct Bilirubin < 0.2 (0.0-0.5) mg/dL AST 25 (5-37) U/L ALT 13 (0-40) U/L Alkaline Phosphatase 78 (39-117) U/L Troponin I High Sens 7.0 (<3.5-35.0) ng/L Total Protein 6.9 (6.5-8.0) g/dL Albumin 3.3 L (3.5-5.0) g/dL Lipase 140 H (8-78) U/L Urine Color Yellow Urine Appearance Clear Urine pH 6.0 (5.0-9.0) Ur Specific [place] 1.020 (1.005-1.025) Urine Protein Trace (Neg-Trace) mg/dL Urine Glucose (UA) Negative (Negative) mg/dL Urine Ketones Negative (Negative) mg/dL Urine Blood Negative (Negative) Urine Nitrite Positive H (Negative) Ur Leukocyte Esterase Moderate (2+) H (Negative) Urine RBC 0-2 (0-2) /HPF Urine WBC 11-20 (0-5) /HPF Ur Squamous Epith Cells 0-2 (0-2) /HPF Urine Bacteria None Seen (None Seen) Hyaline Casts 0-2 (0-2) /LPF Discharge Plan Discharge Clinical Impression: Acute UTI Patient Disposition: Home, Self-Care Instructions: Urinary Tract Infection in Men (ED) Additional Instructions: Please follow-up with your primary care physician tomorrow. If you have any worsening or new symptoms, please return to the emergency room or call 911 Prescriptions: New cefuroxime axetil 250 mg tablet 250 mg PO BID Qty: 14 0RF No Action levothyroxine 50 mcg tablet 56 mcg PO QWEEK mirtazapine 7.5 mg tablet 7.5 mg PO BEDTIME lorazepam [Ativan] 1 mg tablet 1 mg PO DAILY PRN bacitracin 500 unit/gram ointment 1 appl topical TID menthol-zinc oxide [Calmoseptine] 0.44-20.6 % ointment 1 appl topical QID PRN lactulose [Enulose] 10 gram/15 mL solution 10 g PO DAILY benzonatate 100 mg capsule 100 mg PO BID PRN acetaminophen [Tylenol] 325 mg capsule 650 mg PO Q6H PRN ketoconazole 2 % cream 1 appl topical BID nystatin 100,000 unit/gram cream 1 appl topical DAILY cefuroxime axetil 500 mg tablet 500 mg PO Q12H 10 Days Qty: 20 0RF fluconazole [Diflucan] 150 mg tablet 150 mg PO Q3D Qty: 2 0RF Rx Instructions: Take 1 tablet by mouth today, then repeat in 3 days. Then stop this medication nystatin 100,000 unit/gram powder 1 appl topical BID 14 Days Qty: 60 1RF Rx Instructions: Apply to groin and testicle every 12 hours for 14 days Print Language: Hungarian
[2024-08-02 23:17] LABS: MANUAL DIFF FLAG NO
[2024-08-02 23:19] LABS: Basophils Percent Auto 0.6 % (0-2); Eosinophils Percent Auto 0.4 % (0-4); Hematocrit 33.3 % (42.0-52.0); Hemoglobin 11.6 g/dl (14.0-18.0); Imm Gran Abs Auto 0.04 X10*3/uL (0.00-0.03); Imm Gran Pct Auto 0.8 % (0.0-0.4); Lymphocytes Absolute Auto 1.7 X10*3/uL (1.2-4.9); Lymphocytes Percent Auto 34.1 % (20-40); Mean Corpuscular HGB Conc 34.8 g/dl (31.0-36.0); Mean Corpuscular Hemoglobin 35.5 pg (27.0-33.0); Mean Corpuscular Volume 101.8 fL (80.0-98.0); Mean Platelet Volume 9.9 fL (9.4-12.4); Monocytes Absolute Auto 0.8 X10*3/uL (0.1-1.2); Monocytes Percent Auto 15.5 % (2-11); Neutrophils Absolute Auto 2.4 x10*3/uL (2.0-8.3); Neutrophils Percent Auto 48.6 % (45-73); Platelet Count 143 X10*3/uL (160-400); Red Blood Count 3.27 X10*6/uL (4.60-5.80); White Blood Count 4.9 X10*3/uL (4.8-10.8)
[2024-08-02 23:33] LABS: Alanine Aminotransferase 13 U/L (0-40); Albumin Level 3.3 g/dL (3.5-5.0); Alkaline Phosphatase 78 U/L (39-117); Anion Gap 10 (12-20); Aspartate Amino Transferase 25 U/L (5-37); Bilirubin Direct < 0.2 mg/dL (0.0-0.5); Bilirubin Total 0.2 mg/dL (0.0-1.0); Blood Urea Nitrogen 23 mg/dL (9-16); Calcium 8.6 mg/dL (8.4-10.2); Carbon Dioxide 28 mmol/L (22-29); Chloride 106 mmol/L (96-108); Creatinine Clr Calc Pharmacy 50.5; Estimated Glomerular Filt Rate > 60; Glucose Random 102 mg/dL (60-115); Lipase 140 U/L (8-78); Potassium 4.1 mmol/L (3.3-5.1); Sodium 140 mmol/L (135-145); Total Protein 6.9 g/dL (6.5-8.0)
[2024-08-03 00:50] VITALS: BP 96/70; PULSE 72; RESP 20; TEMP 37.2; O2SAT 98
--- NOTE | 2024-08-03 00:55 | PC.NURSE ---
pt was striaght cath, using a pedi cath, urine obtained and sent to lab, pt tolerated well
[2024-08-03 01:00] LABS: Appearance Urine Clear; Color Urine Yellow; Glucose Urine UA Negative (Negative); Leukocyte Esterase Urine Moderate (2+) (Negative); Nitrite Urine Positive (Negative); UMIC TRIGGER UACC YES; Urine Blood Negative (Negative); Urine Ketones Negative (Negative); Urine Protein Trace mg/dL (Neg-Trace)
[2024-08-03 01:12] LABS: Bacteria Urine None Seen (None Seen); Hyaline Casts Urine 0-2 /LPF (0-2); RBC Urine 0-2 /HPF (0-2); Squamous Epithelial Cell Urine 0-2 /HPF (0-2); UACC Culture Trigger YES
[2024-08-03] MEDS: cefuroxime axetiL 250 MG TABLET PO (01:49)
[2024-08-03 02:14] VITALS: BP 99/62; PULSE 72; RESP 18; TEMP 37.2; O2SAT 99
== END 2024-08-03 02:15 | disposition home or self-care (01) ==
PROVIDERS: Emergency Provider Emergency Medicine
DX: N39.0 Urinary tract infection, site not specified (principal); G30.9 Alzheimer's disease, unspecified; F02.80 Dementia in other diseases classified elsewhere, unspecified severity, without behavioral disturbance, psychotic disturbance, mood disturbance, and anxiety
CPT/HCPCS: 36415; 51701; 80048; 80076; 81001; 81003; 83690; 84484; 85025; 87086; 87088; 87186; 93005; 99285

== ENCOUNTER 2024-11-08 11:42 | Observation (INO) | payer MEDICARE, MEDICAID, SELFPAY ==
--- NOTE | ~2024-11-08 | CT_ITS ---
EXAMINATION: CT ABDOMEN AND PELVIS WITHOUT CONTRAST CLINICAL INFORMATION: No BM or flatus and 5 days. COMPARISON: 01/08/2023. TECHNIQUE: Multidetector volumetric imaging was performed from the superior aspect of the liver through the pubic symphysis. Sagittal and coronal reformatted images were obtained on the technologist's workstation. This CT examination was performed using dose optimization techniques as appropriate, variously including the following: *Automated exposure control *Adjustment of mA and/or kV according to patient size (this includes techniques or standardized protocols for targeted exams where dose is matched to indication/reason for exam; i.e. extremities or head) *Use of iterative reconstruction technique DLP: 621 mGy-cm FINDINGS: LUNG BASES: -Lung bases demonstrate respiratory motion artifact with mild thickening of the small airways and dependent atelectasis. No effusions. Heart size normal. Mild dilatation of the distal esophagus. LIVER, GALLBLADDER, AND BILIARY TREE: The liver is normal in size, shape, and attenuation. No suspicious focal hepatic lesion or biliary ductal dilatation is present. There is a 1 cm simple cyst in segment 4A. The gallbladder is unremarkable with no evidence of radiopaque gallstones, gallbladder wall thickening, or obvious pericholecystic inflammatory changes. PANCREAS: Unremarkable. SPLEEN: Unremarkable. ADRENAL GLANDS: Unremarkable. KIDNEYS AND URETERS: -There are are several bilateral nonobstructing calculi in the lower poles of both kidneys, the larger on the left measures 5 mm, and the largest on the right measures 3 mm. -Kidneys otherwise normal without hydronephrosis or mass. -Ureters are normal. BLADDER: -The bladder is pushed anteriorly due to the stool ball in the rectal vault. -There is mild wall thickening posteriorly abutting the large rectal stool ball, likely mass effect. -There is a small right-sided bladder diverticulum present. -No definite mass or calculus. GASTROINTESTINAL TRACT: -There is abundant amount of stool throughout the colon and rectum. -There is a stool ball in the rectal vault measuring up to 10.7 x 8.7 x 3.4 cm. There is mild rectal wall thickening. -There is a mobile cecum, which is located in the epigastric region. The appendix is not well seen although there are no features of appendicitis. ABDOMINAL WALL: Mild abdominal distention. No discrete hernia, mass, or abnormal lymph nodes. LYMPH NODES: No lymphadenopathy present. VASCULAR: Unremarkable. PELVIC VISCERA: Unremarkable. OSSEOUS STRUCTURES: -There are significant degenerative spinal changes present, with chronic appearing compression deformities of L3, L4. There are sclerotic degenerative facet changes spanning L3-S1. Mild hip joint degenerative changes and SI joint degenerative changes are present. CT/CT abdomen pelvis wo IV con IMPRESSION: 1. Rectal fecal impaction, with large stool ball in the rectal vault measuring approximately 10.7 x 8.7 x 3.4 cm (AP, TRV, CC). Minimal associated rectal wall thickening. 2. Abundant fecal material seen throughout the remainder of the colon, findings consistent with obstipation. 3. There is no evidence of small bowel dilatation or obstruction. There is no free intraperitoneal air. There is no ascites. 4. There is a mobile cecum, which is located in the epigastric region ventrally. 5. There are bilateral nonobstructing renal calculi measuring up to 5 mm. No hydronephrosis. 6. There is urinary bladder has been displaced ventrally from the abundant stool in the rectal vault. No discrete mass or calculus. Electronically signed by: Earnest Monson MD 11/08/2024 01:51 PM [facility]
[2024-11-08 11:54] VITALS: BP 106/59; BP 110/60; PULSE 62; PULSE 81; RESP 16; TEMP 36.7; O2SAT 100; O2SAT 97; BMI 21.0
--- NOTE | 2024-11-08 12:25 | ECG_ITS ---
Test Reason : WEAKNESS Blood Pressure : / mmHG Vent. Rate : 077 BPM Atrial Rate : 077 BPM P-R Int : 106 ms QRS Dur : 070 ms QT Int : 398 ms P-R-T Axes : 024 058 059 degrees QTc Int : 450 ms Sinus rhythm with short [place] Otherwise normal ECG When compared with ECG of 02-AUG-2024 20:37, No significant change was found Referred By: Stacey Silverman Electronically Signed By:LEÓN LEACH MD
--- NOTE | 2024-11-08 12:35 | ED_ITS ---
HPI - General Adult General Chief complaint: Abdominal Pain Stated complaint: CONSTIPATION X3D FROM SNF PER EMS Time Seen by Provider: 11/08/24 11:47 Source: EMS, RN notes reviewed, old records reviewed and other (usp staff) Mode of arrival: EMS History of Present Illness ED Provider: Stacey Silverman PA-C HPI narrative: 64-year-old male with a past medical history of Down syndrome, nonverbal, Alzheimer's dementia, celiac disease, presenting to ED from [facility] for constipation without BM or passing flatus x5 days. History obtained from staff who reports patient appears pale, decreased p.o. intake/appetite, and noted patient to be unbalanced when ambulating at day program. No reported falls or injury. No reported abdominal pain, vomiting, fever, dysuria/hematuria or urinary retention. Related Data Home Medications ?Medication ?Instructions ?Recorded ?Confirmed acetaminophen 325 mg capsule 650 mg PO Q6H PRN 04/08/23 (Tylenol) bacitracin 500 unit/gram topical 1 appl topical TID 04/08/23 ointment benzonatate 100 mg capsule 100 mg PO BID PRN 04/08/23 ketoconazole 2 % topical cream 1 appl topical BID 04/08/23 lactulose 10 gram/15 mL oral 10 g PO DAILY 04/08/23 solution (Enulose) levothyroxine 50 mcg tablet 56 mcg PO QWEEK 04/08/23 lorazepam 1 mg tablet (Ativan) 1 mg PO DAILY PRN 04/08/23 menthol 0.44 %-zinc oxide 20.6 % 1 appl topical QID PRN 04/08/23 topical ointment (Calmoseptine) mirtazapine 7.5 mg tablet 7.5 mg PO BEDTIME 04/08/23 nystatin 100,000 unit/gram topical 1 appl topical DAILY 04/08/23 cream Previous Rx's ?Medication ?Instructions ?Recorded cefuroxime axetil 500 mg tablet 500 mg PO Q12H 10 days #20 tabs 04/08/23 fluconazole 150 mg tablet 150 mg PO Q3D 2 doses #2 tabs 04/08/23 (Diflucan) nystatin 100,000 unit/gram topical 1 appl topical BID 14 days #60 04/08/23 powder grams cefuroxime axetil 250 mg tablet 250 mg PO BID #14 tabs 08/03/24 Allergies Allergy/AdvReac Type Severity Reaction Status Date / Time gluten [GLUTEN] Allergy Unknown UNK Verified 11/08/24 11:58 Iodinated Contrast Media Allergy Unknown UNK Verified 11/08/24 11:58 [IVP DYE] Review of Systems 2 Review of Systems: Yes all other systems are reviewed and are negative Constitutional: Constitutional: Reports as per [facility] Past Medical History Attestation statement: The following information was validated with the patient. Source: old records reviewed Medical History Alzheimer's dementia Down syndrome Celiac disease Social History Social History Patient Tobacco Use Status: Never used Tobacco Advance Directives: Yes Advance Directives Information Provided: No Advance Directives on File: No Do you have a plan to hurt others: No Plan Physical Exam ED Vital Signs: Vital Signs - 24 hr 11/08/24 11:54 11/08/24 16:00 Temperature 98.0 F 98.4 F Pulse Rate 81 74 Respiratory Rate 16 16 Blood Pressure 106/59 L 98/53 L Pulse Oximetry 100 95 Oxygen Delivery Method Room Air Room Air BMI result Body Mass Index 21.0 Const General: cooperative, healthy appearing and no acute distress Limitations: no limitations HENMT Head: Yes normal to inspection and Yes atraumatic Ears: hearing grossly normal bilaterally General nose exam: Normal external nose present Face and sinus: Yes normal facial exam Eyes General: appearance normal, both eyes and all related structures EOM: EOMs intact bilaterally Neck Neck: Yes normal visual inspection and Yes no meningeal signs Resp Effort & Inspection: normal respiratory effort and no respiratory distress Auscultation: clear to auscultation bilaterally Cardio Rate: regular rate Heart sounds: S1 normal heart sound present and S2 normal heart sound present GI Inspection: Yes normal to inspection Palpation (GI): Soft to palpation, nontender, no guarding and not rigid Skin Rashes: no rashes Wounds: no wounds Neuro General: gait normal, tone normal, moves all extremities and no meningeal signs Cranial nerves: Yes CN's II-XII intact bilaterally Gait exam (Neuro): Normal gait present Extrem General: Yes normal to inspection Course Course Course Narrative: CT abdomen pelvis wo IV con IMPRESSION: 1. Rectal fecal impaction, with large stool ball in the rectal vault measuring approximately 10.7 x 8.7 x 3.4 cm (AP, TRV, CC). Minimal associated rectal wall thickening. 2. Abundant fecal material seen throughout the remainder of the colon, findings consistent with obstipation. 3. There is no evidence of small bowel dilatation or obstruction. There is no free intraperitoneal air. There is no ascites. 4. There is a mobile cecum, which is located in the epigastric region ventrally. 5. There are bilateral nonobstructing renal calculi measuring up to 5 mm. No hydronephrosis. 6. There is urinary bladder has been displaced ventrally from the abundant stool in the rectal vault. No discrete mass or calculus. > fecal disimpaction attempted however minimal stool palpable. Unable to reach stool ball. Will consult General surgery, Dr. Esqueda > states stool ball too high for finger to remove, recommended combination of enemas, tap water or soapsuds and MiraLax plus lactulose. Recommended admission to hospitalist if no immediate improvement, & exhausting all medical management prior to considering general anesthesia/OR -1616--lipase 139, chronically elevated. Labs otherwise reassuring Patient has been given enema, MiraLax, lactulose in the ED without BM > case discussed with hospitalist, Dr. Montalvo Medications Administered Discontinued Medications Generic Name Dose Route Start Last Admin Trade Name Freq PRN Reason Stop Dose Admin Lactulose 20 gm 11/08/24 14:45 11/08/24 15:22 Lactulose 20 Gm/30 Ml Solution PO 11/08/24 14:46 20 gm ONCE ONE Administration Lorazepam 1 mg 11/08/24 12:25 11/08/24 12:36 Lorazepam 1 Mg Tablet PO 11/08/24 12:26 1 mg ONCE ONE Administration Polyethylene Glycol 17 gm 11/08/24 14:45 11/08/24 15:22 Polyethylene Glycol 3350 17 Gm Powd.Pack PO 11/08/24 14:46 17 gm ONCE ONE Administration Medical Decision Making Medical Decision Making MDM Narrative: 64-year-old male with a past medical history of Down syndrome, nonverbal, Alzheimer's dementia, celiac disease, presenting to ED from [facility] for constipation without BM or passing flatus x5 days. On exam vital signs stable, NAD, nontoxic appearing, at baseline mentation. Ambulating with steady gait, no ataxia. Abdomen soft/nontender. Concern for constipation vs fecal impaction vs SBO. Lower suspicion for CVA/TIA or ICH. Lower suspicion for acute diverticulitis/colitis or appendicitis without tenderness on exam Plan: Labs, UA, CT, rectal exam, re-evaluate Please refer to course for remaining clinical decision making, interpretation of labs/imaging results, and discussions with consultants and/or family members. Differential Diagnosis Differential Diagnoses: The differential diagnosis associated with the presentation includes As above Admission/Observation Consideration of admission/observation: Escalation of care including admission/observation considered Consult Healthcare Provider Management of the patient was discussed with: Hospitalist and Patient Clerical Assistant Lab Data MDM Lab Attestation statement: I reviewed the patient's lab results. 11/08/24 15:33 11/08/24 15:33 Labs: Lab Results 11/08/24 Range/Units 15:33 WBC 5.7 (4.8-10.8) X10*3/uL RBC 3.40 L (4.60-5.80) X10*6/uL Hgb 11.8 L (14.0-18.0) g/dl Hct 34.8 L (42.0-52.0) % MCV 102.4 H (80.0-98.0) fL MCH 34.7 H (27.0-33.0) pg MCHC 33.9 (31.0-36.0) g/dl RDW 15.0 (11.0-16.0) % Plt Count 127 L (160-400) X10*3/uL MPV 11.0 (9.4-12.4) fL Immature Gran % (Auto) 0.5 H (0.0-0.4) % Neut % (Auto) 53.5 (45-73) % Lymph % (Auto) 35.0 (20-40) % [place] % (Auto) 10.0 (2-11) % Eos % (Auto) 0.5 (0-4) % Baso % (Auto) 0.5 (0-2) % Lymph # (Auto) 2.0 (1.2-4.9) X10*3/uL [place] # (Auto) 0.6 (0.1-1.2) X10*3/uL Eos # (Auto) 0.0 (0.0-0.4) X10*3/uL Baso # (Auto) 0.0 (0.0-0.2) X10*3/uL Abs Immat Gran (auto) 0.03 (0.00-0.03) X10*3/uL Absolute Neuts (auto) 3.0 (2.0-8.3) x10*3/uL Absolute Nucleated RBC 0.000 (0.0-0.012) X10*3/uL Nucleated RBC % (auto) 0.0 (0.0-0.2) /100WBC PT 13.3 H (10.9-12.4) SEC INR 1.1 (0.9-1.1) Sodium 143 (135-145) mmol/L Potassium 4.4 (3.3-5.1) mmol/L Chloride 102 (96-108) mmol/L Carbon Dioxide 33 H (22-29) mmol/L Anion Gap 12 (12-20) BUN 21 H (9-16) mg/dL Creatinine 0.81 (0.5-1.4) mg/dL Estim Creat Clear Calc 68.7 Estimated GFR > 60 Random Glucose 106 (60-115) mg/dL Calcium 9.6 D (8.4-10.2) mg/dL Magnesium 2.1 (1.6-2.6) mg/dL Total Bilirubin 0.3 (0.0-1.0) mg/dL Direct Bilirubin 0.1 (0.0-0.5) mg/dL AST 34 (5-37) U/L ALT 15 (0-40) U/L Total Protein 7.7 (6.5-8.0) g/dL Albumin 3.3 L (3.5-5.0) g/dL Lipase 139 H (8-78) U/L Independent Interpretation I performed an independent interpretation of an: CT Scan Radiology Impression Discussion of test interpretation with radiology: I have reviewed the radiologist's reading. Independent Historian Clinical information obtained from an independent historian. History obtained from or confirmed by: EMS and Other External Record Review External record reviewed: Inpatient record, Office record, Outpatient record, Prior outpatient labs, Prior outpatient radiology, Primary care record and Outside ED record Tests considered The following testing was considered but not selected: As above Prescription Management I considered prescription management with: Other Chronic Conditions Patient?s care impacted by: Other (Down syndrome, nonverbal) Social Determinants Patient?s care significantly limited by Social Determinants of Health including: Problems related to primary support group, Unemployment and Other Social Determinant of Health Discharge Plan Discharge Clinical Impression: Fecal impaction in rectum Patient Disposition: Still a Patient Prescriptions: No Action cefuroxime axetil 250 mg tablet 250 mg PO BID Qty: 14 0RF levothyroxine 50 mcg tablet 56 mcg PO QWEEK mirtazapine 7.5 mg tablet 7.5 mg PO BEDTIME lorazepam [Ativan] 1 mg tablet 1 mg PO DAILY PRN bacitracin 500 unit/gram ointment 1 appl topical TID menthol-zinc oxide [Calmoseptine] 0.44-20.6 % ointment 1 appl topical QID PRN lactulose [Enulose] 10 gram/15 mL solution 10 g PO DAILY benzonatate 100 mg capsule 100 mg PO BID PRN acetaminophen [Tylenol] 325 mg capsule 650 mg PO Q6H PRN ketoconazole 2 % cream 1 appl topical BID nystatin 100,000 unit/gram cream 1 appl topical DAILY cefuroxime axetil 500 mg tablet 500 mg PO Q12H 10 Days Qty: 20 0RF fluconazole [Diflucan] 150 mg tablet 150 mg PO Q3D Qty: 2 0RF Rx Instructions: Take 1 tablet by mouth today, then repeat in 3 days. Then stop this medication nystatin 100,000 unit/gram powder 1 appl topical BID 14 Days Qty: 60 1RF Rx Instructions: Apply to groin and testicle every 12 hours for 14 days Print Language: Occitan
[2024-11-08] MEDS: LORazepam 1 MG TABLET PO (12:36)
[2024-11-08] MEDS: polyethylene glycoL 3350 17 GM POWD.PACK PO ×2 (15:22→21:10)
[2024-11-08] MEDS: Lactulose 20 GM/30 ML SOLUTION PO (15:22)
[2024-11-08 15:38] LABS: MANUAL DIFF FLAG NO
[2024-11-08 15:41] LABS: Basophils Percent Auto 0.5 % (0-2); Eosinophils Percent Auto 0.5 % (0-4); Hematocrit 34.8 % (42.0-52.0); Hemoglobin 11.8 g/dl (14.0-18.0); Imm Gran Abs Auto 0.03 X10*3/uL (0.00-0.03); Imm Gran Pct Auto 0.5 % (0.0-0.4); Mean Corpuscular HGB Conc 33.9 g/dl (31.0-36.0); Mean Corpuscular Hemoglobin 34.7 pg (27.0-33.0); Mean Corpuscular Volume 102.4 fL (80.0-98.0); Monocytes Absolute Auto 0.6 X10*3/uL (0.1-1.2); Neutrophils Percent Auto 53.5 % (45-73); Platelet Count 127 X10*3/uL (160-400); White Blood Count 5.7 X10*3/uL (4.8-10.8)
[2024-11-08 15:48] LABS: INTERNATIONAL NORM RATIO 1.1 (0.9-1.1); Prothrombin Time 13.3 SEC (10.9-12.4)
[2024-11-08 15:59] LABS: Alanine Aminotransferase 15 U/L (0-40); Albumin Level 3.3 g/dL (3.5-5.0); Anion Gap 12 (12-20); Aspartate Amino Transferase 34 U/L (5-37); Bilirubin Direct 0.1 mg/dL (0.0-0.5); Bilirubin Total 0.3 mg/dL (0.0-1.0); Blood Urea Nitrogen 21 mg/dL (9-16); Calcium 9.6 mg/dL (8.4-10.2); Carbon Dioxide 33 mmol/L (22-29); Chloride 102 mmol/L (96-108); Creatinine Clr Calc Pharmacy 68.7; Estimated Glomerular Filt Rate > 60; Glucose Random 106 mg/dL (60-115); Lipase 139 U/L (8-78); Magnesium 2.1 mg/dL (1.6-2.6); Potassium 4.4 mmol/L (3.3-5.1); Sodium 143 mmol/L (135-145); Total Protein 7.7 g/dL (6.5-8.0)
[2024-11-08 16:00] VITALS: BP 98/53; PULSE 74; RESP 16; TEMP 36.9; O2SAT 95
[2024-11-08 16:17] LABS: Alkaline Phosphatase 73 U/L (39-117)
[2024-11-08 16:28] LABS: Influenza A PCR NEGATIVE (Negative); Influenza B PCR NEGATIVE (Negative); Resp Syncy Virus RNA Qual PCR NEGATIVE (Negative); SARS COV2 PCR INHOUSE NEGATIVE (Negative)
--- NOTE | 2024-11-08 16:54 | P.HPHOSP_ITS ---
History of Present Illness Date of Service: 11/08/24 Attending physician on admission: Brett Montalvo Chief Complaint: Constipation Pt is a 64-year-old male with a PMH significant for?down syndrome, Alzheimer's dementia, celiac disease, microcephaly, and nonverbal at baseline who presents to the ED from longterm for evaluation of constipation. Staff report patient has not had a bowel movement or passing flatus x5 days, as well as decreased appetite x3 days. Patient normally has bowel movement every other day. Staff have noticed some tenderness and bloating to abd and that he has been unbalanced when walking, which is new. Was treated with MiraLax to no effect. Denies nausea and vomiting. CT of abdomen and pelvis showed rectal fecal impaction with large stool ball rectal vault as well as abundant fecal material throughout remainder of colon consistent with obstipation. No evidence of SBO. ED clinicians were unable to manually disimpact in the ED. ED clinicians discussed with General surgery who recommended exhausting medical management before consideration of disimpaction in the OR. In the ED pt with soft BP as low as 98/53. Labs were grossly unremarkable and around baseline for patient. Stable macrocytic anemia of 11.8 her 34.8. No leukocytosis. No significant electrolyte abnormalities. Renal function WNL. Hepatic function baseline. Chronically elevated lipase around baseline. Tested negative for flu, COVID, RSV. EKG demonstrated sinus rhythm short OR but no evidence of significant ST elevations or depressions. Pt was treated with lactulose, MiraLax, Ativan, and IVF, and received a soapsuds enema in the ED. Pt will be admitted to the hospital under observation for treatment and further evaluation of persistent fecal impaction not responsive to ED treatment. Review of Systems 2 Review of Systems: Negative except for that which is stated in the [facility] Medical History Alzheimer's dementia Down syndrome Celiac disease Social History Patient Tobacco Use Status: Never used Tobacco Advance Directives: Yes Advance Directives Information Provided: No Advance Directives on File: No Do you have a plan to hurt others: No Plan Meds Allergies Allergy/AdvReac Type Severity Reaction Status Date / Time gluten [GLUTEN] Allergy Unknown UNK Verified 11/08/24 11:58 Iodinated Contrast Media Allergy Unknown UNK Verified 11/08/24 11:58 [IVP DYE] Active Medications: Current Medications Sodium Chloride (Ns) 1,000 mls @ 999 mls/hr IV .Q1H1M HENRI Stop: 11/08/24 17:15 Home Medications ?Medication ?Instructions ?Recorded ?Confirmed ?Last Taken ?Type bacitracin 500 unit/gram topical 1 appl topical TID PRN MINOR 04/08/23 11/08/24 Unknown History ointment CUTS/SCRAPES/ABRASIONS lactulose 10 gram/15 mL oral 10 g PO DAILY PRN Constipation 04/08/23 11/08/24 Unknown History solution (Enulose) lorazepam 1 mg tablet (Ativan) 1 mg PO DAILY PRN AGITATION WITH 04/08/23 11/08/24 Unknown History PODIATRY APPT mirtazapine 7.5 mg tablet 7.5 mg PO BEDTIME 04/08/23 11/08/24 11/07/24 History acetaminophen 325 mg tablet 325 mg PO Q4H PRN 11/08/24 11/08/24 Unknown History HEADACHE/BODYACHE/JOINT PAIN/FEVER calcitriol 0.5 mcg capsule 0.5 mcg PO DAILY 11/08/24 11/08/24 11/08/24 History calcium 600 mg (as 1 tab PO BID@1200,2000 11/08/24 11/08/24 11/08/24 History carbonate)-vitamin D3 5 mcg (200 unit) tablet divalproex 250 mg tablet,delayed 250 mg PO BID 11/08/24 11/08/24 11/08/24 History release docusate sodium 100 mg capsule 100 mg PO BID 11/08/24 11/08/24 11/08/24 History (Colace) esomeprazole magnesium 20 mg 20 mg PO DAILY 11/08/24 11/08/24 11/08/24 History capsule,delayed release fluvoxamine 50 mg tablet 50 mg PO BID 11/08/24 11/08/24 11/08/24 History levothyroxine 112 mcg tablet 112 mcg PO DAILY@0630 11/08/24 11/08/24 11/08/24 History menthol 0.44 %-zinc oxide 20.6 % 1 appl topical BID PRN SKIN 11/08/24 11/08/24 Unknown History topical ointment (Calmoseptine) BREAKDOWN midodrine 2.5 mg tablet 5 mg PO TID@0800,1200,1600 11/08/24 11/08/24 11/08/24 History multivitamin-ferrous 1 tab PO DAILY 11/08/24 11/08/24 11/08/24 History fumarate-folic acid 18 mg-400 mcg tablet (Tab-A-Tho Multivitamin w-iron) polyethylene glycol 3350 17 gram 17 g PO DAILY 11/08/24 11/08/24 11/08/24 History oral powder packet (Miralax) quetiapine 25 mg tablet 75 mg PO BID@0800,1200 11/08/24 11/08/24 11/08/24 History tamsulosin 0.4 mg capsule 0.4 mg PO BEDTIME 11/08/24 11/08/24 11/07/24 History testosterone 1.62 % (20.25 mg/1.25 1 packet transdermal MOWEFR@0900 11/08/24 11/08/24 Unknown History gram) transdermal gel packet (AndroGel) zinc oxide-vitamin B5-vit E 11.3% 1 appl topical BEDTIME 11/08/24 11/08/24 11/07/24 History topical cream (Balmex Adult Care) Physical Exam 2 Vital Signs and Narrative: Vital Signs: Last Vital Signs Temp 98.4 F 11/08/24 16:00 Pulse 74 11/08/24 16:00 Resp 16 11/08/24 16:00 BP 98/53 L 11/08/24 16:00 Pulse Ox 95 11/08/24 16:00 O2 Del Method Room Air 11/08/24 16:00 BMI result Body Mass Index 21.0 General: Awake, nonverbal, unable to follow commands. In no acute distress. Resp: CTA bilaterally CVS: S1, S2, RRR GI: +BS in all quadrants, no tenderness appreciated, soft. Skin: Warm, dry Neuro: Cranial nerves II-XII grossly intact bilaterally. Motor grossly intact bilaterally. Pt nonverbal with microcephaly Extremities: No edema Results Labs 11/08/24 15:33 11/08/24 15:33 Labs: Laboratory Results - last 24 hr 11/08/24 15:33 MCV 102.4 H MCH 34.7 H MCHC 33.9 RDW 15.0 Plt Count 127 L MPV 11.0 Immature Gran % (Auto) 0.5 H Neut % (Auto) 53.5 Lymph % (Auto) 35.0 [place] % (Auto) 10.0 Eos % (Auto) 0.5 Baso % (Auto) 0.5 Lymph # (Auto) 2.0 [place] # (Auto) 0.6 Eos # (Auto) 0.0 Baso # (Auto) 0.0 Abs Immat Gran (auto) 0.03 Absolute Neuts (auto) 3.0 Absolute Nucleated RBC 0.000 Nucleated RBC % (auto) 0.0 PT 13.3 H INR 1.1 Anion Gap 12 Estim Creat Clear Calc 68.7 Estimated GFR > 60 Random Glucose 106 Calcium 9.6 D Magnesium 2.1 Total Bilirubin 0.3 Direct Bilirubin 0.1 AST 34 ALT 15 Alkaline Phosphatase 73 Total Protein 7.7 Albumin 3.3 L Lipase 139 H Influenza Type A (PCR) NEGATIVE Influenza Type B (PCR) NEGATIVE RSV RNA Qual (PCR) NEGATIVE SARS-CoV-2 RNA (RT-PCR) NEGATIVE Imaging Radiologist's Impressions: Impressions Abdomen/Pelvis CT 11/08/24 12:43 IMPRESSION: 1. Rectal fecal impaction, with large stool ball in the rectal vault measuring approximately 10.7 x 8.7 x 3.4 cm (AP, TRV, CC). Minimal associated rectal wall thickening. 2. Abundant fecal material seen throughout the remainder of the colon, findings consistent with obstipation. 3. There is no evidence of small bowel dilatation or obstruction. There is no free intraperitoneal air. There is no ascites. 4. There is a mobile cecum, which is located in the epigastric region ventrally. 5. There are bilateral nonobstructing renal calculi measuring up to 5 mm. No hydronephrosis. 6. There is urinary bladder has been displaced ventrally from the abundant stool in the rectal vault. No discrete mass or calculus. Electronically signed by: Earnest Monson MD 11/08/2024 01:51 PM [facility] Assessment and Plan (1) Fecal impaction in rectum: Status: Acute Plan Pt is a 64-year-old male with a PMH significant for?down syndrome, Alzheimer's dementia, celiac disease, microcephaly, and nonverbal at baseline who presents to the ED from longterm for evaluation of constipation. Pt will be admitted to the hospital under observation for treatment and further evaluation of persistent fecal impaction not responsive to ED treatment. Fecal impaction Patient constipated with last bowel movement 5 days ago, normally has BM every other day CT showing large stool ball in rectal vault and abundant fecal material throughout remainder of colon Unable to manually disimpact in the ED Nonresponsive to ED treatment of lactulose, MiraLax, and enema Will treat with scheduled MiraLax, lactulose, and enemas tonight and tomorrow morning General surgery consult for possible OR disimpaction if medical management fails Hypotension Continue midodrine Hypothyroidism Continue levothyroxine BPH Continue tamsulosin Mood disorder/Alzheimer's dementia Continue home mood stabilizers Full Code Attending:?Dr. Montalvo DVT Prophylaxis: Lovenox Patient will be admitted to the hospital under observation for treatment and further evaluation of fecal impaction not responsive to treatment in the ED. patient will receive scheduled laxative and enemas, and general surgery consult for possible disimpaction in the OR. Quality Stroke Does the patient have a stroke diagnosis?: No VTE Prior VTE?: No VTE Risk Level:: Medical - moderate - high VTE Device Contraindication: Treatment Not Indicated VTE Drug Contraindication: N/A - Med Ordered
[2024-11-08] MEDS: 0.9 % Sodium Chloride 1,000 ML 999 ML IV (17:00)
--- NOTE | 2024-11-08 17:02 | PHA.MEDREC ---
Pharmacy Consult ? Medication Reconciliation Pharmacy has completed the medication reconciliation. Spoke with radiology supervisor from [facility] who was able to provide a list. Patient took all morning and early afternoon medications.
[2024-11-08 18:26] VITALS: BP 101/63; PULSE 74; RESP 18; TEMP 36.9; O2SAT 94
[2024-11-08] MEDS: Enoxaparin Sodium 40 MG/0.4 ML SYRINGE SUBCUT (19:21)
[2024-11-08 19:22] VITALS: BP 108/67
[2024-11-08] MEDS: QUEtiapine Fumarate 25 MG TABLET 75 MG PO (19:22)
[2024-11-08] MEDS: Midodrine HCl 5 MG TABLET PO (19:22)
[2024-11-08 20:56] VITALS: BP 126/60; PULSE 82; RESP 18; TEMP 36.6; O2SAT 94
[2024-11-08] MEDS: fluvoxaMINE Maleate 50 MG TABLET PO (21:11)
[2024-11-08] MEDS: Tamsulosin HCL 0.4 MG CAPSULE PO (21:11)
[2024-11-08] MEDS: Docusate Sodium 100 MG CAPSULE PO (21:11)
[2024-11-08] MEDS: Mirtazapine 7.5 MG TABLET PO (21:11)
[2024-11-08] MEDS: Lactulose 20 GM/30 ML SOLUTION 30 GM PO (21:12)
[2024-11-08] MEDS: Divalproex Sodium 250 MG TABLET.DR PO (21:13)
[2024-11-08] MEDS: 0.9 % Sodium Chloride Flush 3 ML SYRINGE IVFLUSH (21:13)
[2024-11-08 21:17] VITALS: BMI 20.2
--- NOTE | 2024-11-08 22:54 | PC.NURSE ---
2130 SSE given with a moderate amount of soft light brown stool returned.
--- NOTE | 2024-11-08 23:03 | PC.NURSE ---
pt inc large amount of soft stool.
[2024-11-09] MEDS: Omeprazole 20 MG CAPSULE.DR PO (05:49)
[2024-11-09] MEDS: Levothyroxine Sodium 112 MCG TABLET PO (05:49)
[2024-11-09 05:56] VITALS: BP 138/72; PULSE 69; RESP 16; TEMP 37; O2SAT 97
--- NOTE | 2024-11-09 08:07 | PM.CNGS ---
History of Present Illness Consult details Consult date: 11/09/24 Requesting physician: Lamin Leblanc Narrative: 64-year-old male patient with a history of constipation presenting after no BM or flatus for 5 days. Patient's past medical history is significant for Down syndrome, Alzheimer's dementia, celiac disease, residing in a [facility] skilled nursing. Patient was normally nonverbal and was noted to have decreased appetite and increased when ambulating. He presented to the emergency department and was noted to have no abdominal tenderness or peritoneal signs. Laboratories revealed a normal WBC of 5.7. A CT abdomen and pelvis revealed a large fecal stool ball suggestive of a fecal impaction with extensive stool throughout the colon. Digital disimpaction performed in the ED revealed only small amount of stool that was able to be removed. He was given lactulose and MiraLax and has begun passing liquid stool. He apparently had a large liquid stool earlier this morning. Review of Systems Review of Systems: Yes Unobtainable due to mental condition PMFSH Past Medical History Medical History Alzheimer's dementia Down syndrome Celiac disease Social History Social History Patient Tobacco Use Status: Never used Tobacco Advance Directives Date on File: 11/08/24 Meds Allergies Allergy/AdvReac Type Severity Reaction Status Date / Time gluten [GLUTEN] Allergy Unknown UNK Verified 11/08/24 11:58 Iodinated Contrast Media Allergy Unknown UNK Verified 11/08/24 11:58 [IVP DYE] Active Medications: Current Medications Acetaminophen (Acetaminophen 325 Mg Tablet) 650 mg PO Q6H PRN PRN Reason: Pain, Mild 1-3,fever,headache Calcitriol (Calcitriol 0.25 Mcg Capsule) 0.5 mcg PO DAILY [facility] Calcium Carbonate/Cholecalciferol (Calcium + Vitamin D 250 Mg Tablet) 250 mg PO BID@1200,2000 [facility] Divalproex Sodium (Divalproex Sodium 250 Mg Tablet.) 250 mg PO BID [facility] Last Admin: 11/08/24 21:13 Dose: 250 mg Docusate Sodium (Docusate Sodium 100 Mg Capsule) 100 mg PO BID [facility] Last Admin: 11/08/24 21:11 Dose: 100 mg Enoxaparin Sodium (Enoxaparin Sodium 40 Mg/0.4 Ml Syringe) 40 mg SUBCUT Q24H [facility] Last Admin: 11/08/24 19:21 Dose: 40 mg Fluvoxamine Maleate (Fluvoxamine Maleate 50 Mg Tablet) 50 mg PO BID [facility] Last Admin: 11/08/24 21:11 Dose: 50 mg Lactulose (Lactulose 20 Gm/30 Ml Solution) 30 gm PO DAILY [facility] Levothyroxine Sodium (Levothyroxine Sodium 112 Mcg Tablet) 112 mcg PO DAILY@0630 [facility] Last Admin: 11/09/24 05:49 Dose: 112 mcg Lorazepam (Lorazepam 1 Mg Tablet) 1 mg PO DAILY PRN PRN Reason: AGITATION WITH PODIATRY APPT Midodrine (Midodrine Hcl 5 Mg Tablet) 5 mg PO TID@0800,1200,1600 [facility] Last Admin: 11/08/24 19:22 Dose: 5 mg Mirtazapine (Mirtazapine 7.5 Mg Tablet) 7.5 mg PO BEDTIME [facility] Last Admin: 11/08/24 21:11 Dose: 7.5 mg Multivitamins/Vitamin C (Multivitamin Tablet) 1 tab PO DAILY [facility] Omeprazole (Omeprazole 20 Mg Capsule.Dr) 20 mg PO DAILY@0630 [facility] Last Admin: 11/09/24 05:49 Dose: 20 mg Polyethylene Glycol (Polyethylene Glycol 3350 17 Gm Powd.Pack) 17 gm PO DAILY [facility] Quetiapine Fumarate (Quetiapine Fumarate 25 Mg Tablet) 75 mg PO BID@0800,1200 [facility] Last Admin: 11/08/24 19:22 Dose: 75 mg Sodium Chloride (0.9 % Sodium Chloride Flush 3 Ml Syringe) 3 ml IVFLUSH QSHIFT [facility] Last Admin: 11/08/24 21:13 Dose: 3 ml Tamsulosin HCl (Tamsulosin Hcl 0.4 Mg Capsule) 0.4 mg PO BEDTIME [facility] Last Admin: 11/08/24 21:11 Dose: 0.4 mg Home Medications ?Medication ?Instructions ?Recorded ?Confirmed ?Last Taken ?Type bacitracin 500 unit/gram topical 1 appl topical TID PRN MINOR 04/08/23 11/08/24 Unknown History ointment CUTS/SCRAPES/ABRASIONS lactulose 10 gram/15 mL oral 10 g PO DAILY PRN Constipation 04/08/23 11/08/24 Unknown History solution (Enulose) lorazepam 1 mg tablet (Ativan) 1 mg PO DAILY PRN AGITATION WITH 04/08/23 11/08/24 Unknown History PODIATRY APPT mirtazapine 7.5 mg tablet 7.5 mg PO BEDTIME 04/08/23 11/08/24 11/07/24 History acetaminophen 325 mg tablet 325 mg PO Q4H PRN 11/08/24 11/08/24 Unknown History HEADACHE/BODYACHE/JOINT PAIN/FEVER calcitriol 0.5 mcg capsule 0.5 mcg PO DAILY 11/08/24 11/08/24 11/08/24 History calcium 600 mg (as 1 tab PO BID@1200,2000 11/08/24 11/08/24 11/08/24 History carbonate)-vitamin D3 5 mcg (200 unit) tablet divalproex 250 mg tablet,delayed 250 mg PO BID 11/08/24 11/08/24 11/08/24 History release docusate sodium 100 mg capsule 100 mg PO BID 11/08/24 11/08/24 11/08/24 History (Colace) esomeprazole magnesium 20 mg 20 mg PO DAILY 11/08/24 11/08/24 11/08/24 History capsule,delayed release fluvoxamine 50 mg tablet 50 mg PO BID 11/08/24 11/08/24 11/08/24 History levothyroxine 112 mcg tablet 112 mcg PO DAILY@0630 11/08/24 11/08/24 11/08/24 History menthol 0.44 %-zinc oxide 20.6 % 1 appl topical BID PRN SKIN 11/08/24 11/08/24 Unknown History topical ointment (Calmoseptine) BREAKDOWN midodrine 2.5 mg tablet 5 mg PO TID@0800,1200,1600 11/08/24 11/08/24 11/08/24 History multivitamin-ferrous 1 tab PO DAILY 11/08/24 11/08/24 11/08/24 History fumarate-folic acid 18 mg-400 mcg tablet (Tab-A-Tho Multivitamin w-iron) polyethylene glycol 3350 17 gram 17 g PO DAILY 11/08/24 11/08/24 11/08/24 History oral powder packet (Miralax) quetiapine 25 mg tablet 75 mg PO BID@0800,1200 11/08/24 11/08/24 11/08/24 History tamsulosin 0.4 mg capsule 0.4 mg PO BEDTIME 11/08/24 11/08/24 11/07/24 History testosterone 1.62 % (20.25 mg/1.25 1 packet transdermal MOWEFR@0900 11/08/24 11/08/24 Unknown History gram) transdermal gel packet (AndroGel) zinc oxide-vitamin B5-vit E 11.3% 1 appl topical BEDTIME 11/08/24 11/08/24 11/07/24 History topical cream (Balmex Adult Care) Physical Exam Vital Signs: Vital Signs: Last Vital Signs Temp 98.6 F 11/09/24 05:56 Pulse 69 11/09/24 05:56 Resp 16 11/09/24 05:56 BP 138/72 11/09/24 05:56 Pulse Ox 97 11/09/24 05:56 O2 Del Method Room Air 11/09/24 05:56 BMI result Body Mass Index 20.2 Const: General: no acute distress Nutritional Appearance: well nourished Orientation/consciousness: patient oriented x3 Resp: Effort & Inspection: normal respiratory effort, no audible wheezes, no cough and no respiratory distress GI: Inspection: Yes normal to inspection Palpation (GI): Soft to palpation, nontender, no guarding, not rigid and No hepatosplenomegaly present Skin: General skin exam: no rashes or lesions noted Neuro: General: patient oriented x3 Extrem: General: Yes no clubbing, cyanosis or edema Results Labs 11/08/24 15:33 11/08/24 15:33 Labs: Abnormal lab results 11/08/24 Range/Units 15:33 RBC 3.40 L (4.60-5.80) X10*6/uL Hgb 11.8 L (14.0-18.0) g/dl Hct 34.8 L (42.0-52.0) % MCV 102.4 H (80.0-98.0) fL MCH 34.7 H (27.0-33.0) pg Plt Count 127 L (160-400) X10*3/uL Immature Gran % (Auto) 0.5 H (0.0-0.4) % PT 13.3 H (10.9-12.4) SEC Carbon Dioxide 33 H (22-29) mmol/L BUN 21 H (9-16) mg/dL Albumin 3.3 L (3.5-5.0) g/dL Lipase 139 H (8-78) U/L Short CBC 11/08/24 Range/Units 15:33 WBC 5.7 (4.8-10.8) X10*3/uL Hgb 11.8 L (14.0-18.0) g/dl Hct 34.8 L (42.0-52.0) % Plt Count 127 L (160-400) X10*3/uL BMP 11/08/24 15:33 Sodium 143 Potassium 4.4 Chloride 102 Carbon Dioxide 33 H BUN 21 H Creatinine 0.81 Calcium 9.6 D Liver Function 11/08/24 Range/Units 15:33 Total Bilirubin 0.3 (0.0-1.0) mg/dL Direct Bilirubin 0.1 (0.0-0.5) mg/dL AST 34 (5-37) U/L ALT 15 (0-40) U/L Alkaline Phosphatase 73 (39-117) U/L Albumin 3.3 L (3.5-5.0) g/dL All other labs normal. Assessment and Plan (1) Fecal impaction in rectum: Status: Acute Plan 64-year-old male patient with chronic constipation found to have fecal impaction. He is now having some large liquid stools but may still have the large fecal rectal remnant. Recommend combination of enemas plus the stool softeners/cathartics to loosen the remaining stool. No surgical intervention recommended. Procedures Date of Service Date of Service: 11/09/24
[2024-11-09] MEDS: fluvoxaMINE Maleate 50 MG TABLET PO ×2 (08:34→19:58)
[2024-11-09] MEDS: calcitrioL 0.25 MCG CAPSULE 0.5 MCG PO (08:34)
[2024-11-09] MEDS: Multivitamin TABLET 1 TAB PO (08:35)
[2024-11-09] MEDS: Midodrine HCl 5 MG TABLET PO ×3 (08:35→16:11)
[2024-11-09] MEDS: Divalproex Sodium 250 MG TABLET.DR PO ×2 (08:35→19:58)
[2024-11-09] MEDS: Docusate Sodium 100 MG CAPSULE PO ×2 (08:35→19:58)
[2024-11-09] MEDS: 0.9 % Sodium Chloride Flush 3 ML SYRINGE IVFLUSH ×3 (08:35→19:57)
[2024-11-09] MEDS: QUEtiapine Fumarate 25 MG TABLET 75 MG PO ×2 (08:35→12:55)
[2024-11-09] MEDS: polyethylene glycoL 3350 17 GM POWD.PACK PO (08:37)
[2024-11-09] MEDS: Lactulose 20 GM/30 ML SOLUTION 30 GM PO ×3 (08:51→19:58)
--- NOTE | 2024-11-09 11:21 | MHC.CM.PN ---
Addendum entered by Rivka Elizabeth 11/09/24 12:39: CORRECTION: DELFINO'S NUMBER IS [phone] Original Note: PT IS A N ALF RESIDENT WHERE HE REQUIRES ASSISTANCE WITH ALL CARE HE IS NON-VERBAL AT BASELINE HE CAN FEED HIMSELF, PER HIS DIET IS PUREE WITH HONEY THICK LIQUIDS PT CAN WALK WITHOUT AN AD, HOWEVER STAFF REPORTS THEY STAY NEARBY TO ASSIST/SUPPORT PRN PTS GUARDIAN (ON FILE) IS TOSIN LEO [phone] PCP: JAKUB ELAM OBSERVATION NOTICE DELIVERED TO GUARDIAN VIA T/C, SHE REQUESTS A COPY BE LEFT AT BEDSIDE DCP: RETURN TO ALF VIA STAFF RN: DELFINO [phone]
[2024-11-09] MEDS: Calcium + Vitamin D 250 MG TABLET PO ×2 (12:54→19:57)
[2024-11-09 14:00] VITALS: BP 101/59; PULSE 76; RESP 16; TEMP 36.3; O2SAT 98
[2024-11-09] MEDS: Acetaminophen 325 MG TABLET 650 MG PO (14:00)
--- NOTE | 2024-11-09 15:17 | P.PNIM_ITS ---
Subjective Subjective Date of Service: 11/09/24 Interval History: No acute issues overnight. Some loose stool related to enema but nothing notable Review of Systems Unable to obtain Physical Exam 2 Vital Signs: Vital Signs: Last Vital Signs Temp 97.4 F 11/09/24 14:00 Pulse 76 11/09/24 14:00 Resp 16 11/09/24 14:00 BP 101/59 L 11/09/24 14:00 Pulse Ox 98 11/09/24 14:00 O2 Del Method Room Air 11/09/24 14:00 BMI result Body Mass Index 20.2 Const: Other: Awake alert nonverbal Resp: Other: Clear to auscultation bilaterally no rales rhonchi or wheezes Cardio: Other: No S4; positive S1-S2; no S3 murmurs rubs or gallops GI: Other: Soft nontender normoactive bowel sounds Extrem: Other: No edema bilaterally Objective Data Active Medications Acetaminophen (Acetaminophen 325 Mg Tablet) 650 mg PO Q6H PRN PRN Reason: Pain, Mild 1-3,fever,headache Last Admin: 11/09/24 14:00 Dose: 650 mg Documented By: JOHN Calcitriol (Calcitriol 0.25 Mcg Capsule) 0.5 mcg PO DAILY [facility] Last Admin: 11/09/24 08:34 Dose: 0.5 mcg Documented By: JOHN Calcium Carbonate/Cholecalciferol (Calcium + Vitamin D 250 Mg Tablet) 250 mg PO BID@1200,2000 [facility] Last Admin: 11/09/24 12:54 Dose: 250 mg Documented By: JOHN Divalproex Sodium (Divalproex Sodium 250 Mg Tablet.) 250 mg PO BID [facility] Last Admin: 11/09/24 08:35 Dose: 250 mg Documented By: JOHN Docusate Sodium (Docusate Sodium 100 Mg Capsule) 100 mg PO BID [facility] Last Admin: 11/09/24 08:35 Dose: 100 mg Documented By: JOHN Enoxaparin Sodium (Enoxaparin Sodium 40 Mg/0.4 Ml Syringe) 40 mg SUBCUT Q24H [facility] Last Admin: 11/08/24 19:21 Dose: 40 mg Documented By: MADELIN Fluvoxamine Maleate (Fluvoxamine Maleate 50 Mg Tablet) 50 mg PO BID [facility] Last Admin: 11/09/24 08:34 Dose: 50 mg Documented By: JOHN Lactulose (Lactulose 20 Gm/30 Ml Solution) 30 gm PO TID [facility] Last Admin: 11/09/24 15:06 Dose: 30 gm Documented By: JOHN Levothyroxine Sodium (Levothyroxine Sodium 112 Mcg Tablet) 112 mcg PO DAILY@0630 [facility] Last Admin: 11/09/24 05:49 Dose: 112 mcg Documented By: NANCY Lorazepam (Lorazepam 1 Mg Tablet) 1 mg PO DAILY PRN PRN Reason: AGITATION WITH PODIATRY APPT Midodrine (Midodrine Hcl 5 Mg Tablet) 5 mg PO TID@0800,1200,1600 [facility] Last Admin: 11/09/24 12:55 Dose: 5 mg Documented By: JOHN Mirtazapine (Mirtazapine 7.5 Mg Tablet) 7.5 mg PO BEDTIME [facility] Last Admin: 11/08/24 21:11 Dose: 7.5 mg Documented By: NANCY Multivitamins/Vitamin C (Multivitamin Tablet) 1 tab PO DAILY [facility] Last Admin: 11/09/24 08:35 Dose: 1 tab Documented By: JOHN Omeprazole (Omeprazole 20 Mg Capsule.Dr) 20 mg PO DAILY@0630 [facility] Last Admin: 11/09/24 05:49 Dose: 20 mg Documented By: NANCY Polyethylene Glycol (Polyethylene Glycol 3350 17 Gm Powd.Pack) 17 gm PO DAILY [facility] Last Admin: 11/09/24 08:37 Dose: 17 gm Documented By: JOHN Quetiapine Fumarate (Quetiapine Fumarate 25 Mg Tablet) 75 mg PO BID@0800,1200 [facility] Last Admin: 11/09/24 12:55 Dose: 75 mg Documented By: JOHN Sodium Chloride (0.9 % Sodium Chloride Flush 3 Ml Syringe) 3 ml IVFLUSH [facility] Last Admin: 11/09/24 08:35 Dose: 3 ml Documented By: JOHN Tamsulosin HCl (Tamsulosin Hcl 0.4 Mg Capsule) 0.4 mg PO BEDTIME [facility] Last Admin: 11/08/24 21:11 Dose: 0.4 mg Documented By: NANCY Labs 11/08/24 15:33 11/08/24 15:33 Labs: Laboratory Results - last 24 hr 11/08/24 15:33 MCV 102.4 H MCH 34.7 H MCHC 33.9 RDW 15.0 Plt Count 127 L MPV 11.0 Immature Gran % (Auto) 0.5 H Neut % (Auto) 53.5 Lymph % (Auto) 35.0 [place] % (Auto) 10.0 Eos % (Auto) 0.5 Baso % (Auto) 0.5 Lymph # (Auto) 2.0 [place] # (Auto) 0.6 Eos # (Auto) 0.0 Baso # (Auto) 0.0 Abs Immat Gran (auto) 0.03 Absolute Neuts (auto) 3.0 Absolute Nucleated RBC 0.000 Nucleated RBC % (auto) 0.0 PT 13.3 H INR 1.1 Anion Gap 12 Estim Creat Clear Calc 68.7 Estimated GFR > 60 Random Glucose 106 Calcium 9.6 D Magnesium 2.1 Total Bilirubin 0.3 Direct Bilirubin 0.1 AST 34 ALT 15 Alkaline Phosphatase 73 Total Protein 7.7 Albumin 3.3 L Lipase 139 H Influenza Type A (PCR) NEGATIVE Influenza Type B (PCR) NEGATIVE RSV RNA Qual (PCR) NEGATIVE SARS-CoV-2 RNA (RT-PCR) NEGATIVE Assessment and Plan (1) Fecal impaction in rectum: Status: Acute Plan Pt is a 64-year-old male with a PMH significant for?down syndrome, Alzheimer's dementia, celiac disease, microcephaly, and nonverbal at baseline who presents [facility] the ED from [facility] for evaluation of constipation. Pt will be admitted to the hospital under observation for treatment and further evaluation of persistent fecal impaction not responsive to ED treatment. 1.Fecal impaction -seen by surgery; no surgical intervention indicated at this time -increase lactulose to 30 mL t.i.d. and continue current regimen -assess response; may need additional soapsuds enema 2.Hypotension -acceptable control at this time -continue midodrine 3.Hypothyroidism Continue levothyroxine Full Code Lovenox Quality Stroke Does the patient have a stroke diagnosis?: No VTE Prior VTE?: No VTE Risk Level:: Medical - moderate - high VTE Device Contraindication: Treatment Not Indicated VTE Drug Contraindication: N/A - Med Ordered
[2024-11-09 15:23] VITALS: BP 88/52; PULSE 72; RESP 14; TEMP 36.3; O2SAT 92
[2024-11-09 16:30] LABS: Appearance Urine Cloudy; Color Urine Yellow; Glucose Urine UA Negative (Negative); Leukocyte Esterase Urine Large (3+) (Negative); Nitrite Urine Positive (Negative); PH 6.5 (5.0-9.0); Specific Gravity - Urine 1.015 (1.005-1.025); UMIC TRIGGER UACC YES; Urine Blood Small (1+) (Negative); Urine Ketones Trace mg/dL (Negative); Urine Protein Trace mg/dL (Neg-Trace)
[2024-11-09 16:44] LABS: Bacteria Urine 3+ (None Seen); Hyaline Casts Urine 0-2 /LPF (0-2); RBC Urine 0-2 /HPF (0-2); Squamous Epithelial Cell Urine 0-2 /HPF (0-2); UACC Culture Trigger YES; WBC Urine >50 /HPF (0-5)
[2024-11-09 18:04] VITALS: BP 80/46
[2024-11-09] MEDS: Enoxaparin Sodium 40 MG/0.4 ML SYRINGE SUBCUT (19:57)
[2024-11-09] MEDS: Mirtazapine 7.5 MG TABLET PO (19:58)
[2024-11-09] MEDS: Tamsulosin HCL 0.4 MG CAPSULE PO (19:58)
[2024-11-10 03:13] VITALS: BP 97/62; PULSE 72; RESP 14; TEMP 36; O2SAT 96
[2024-11-10] MEDS: Levothyroxine Sodium 112 MCG TABLET PO (06:10)
[2024-11-10] MEDS: Omeprazole 20 MG CAPSULE.DR PO (06:10)
[2024-11-10 07:26] VITALS: BP 109/60; PULSE 71; RESP 16; TEMP 36.5; O2SAT 97
[2024-11-10] MEDS: calcitrioL 0.25 MCG CAPSULE 0.5 MCG PO (08:14)
[2024-11-10] MEDS: Midodrine HCl 5 MG TABLET PO ×3 (08:14→15:56)
[2024-11-10] MEDS: Lactulose 20 GM/30 ML SOLUTION 30 GM PO ×2 (08:14→20:00)
[2024-11-10] MEDS: Docusate Sodium 100 MG CAPSULE PO ×2 (08:14→19:56)
[2024-11-10] MEDS: Multivitamin TABLET 1 TAB PO (08:15)
[2024-11-10] MEDS: QUEtiapine Fumarate 25 MG TABLET 75 MG PO ×2 (08:15→12:49)
[2024-11-10] MEDS: Divalproex Sodium 250 MG TABLET.DR PO ×2 (08:15→19:56)
[2024-11-10] MEDS: fluvoxaMINE Maleate 50 MG TABLET PO ×2 (08:15→19:56)
[2024-11-10] MEDS: polyethylene glycoL 3350 17 GM POWD.PACK PO (08:15)
[2024-11-10] MEDS: 0.9 % Sodium Chloride Flush 3 ML SYRINGE IVFLUSH ×3 (08:29→19:56)
[2024-11-10] MEDS: Acetaminophen 325 MG TABLET 650 MG PO ×2 (09:38→20:10)
--- NOTE | 2024-11-10 12:23 | HO.PM.IMPN ---
Subjective Subjective Date of Service: 11/10/24 Interval History: Staff notes 2 large BMs overnight. Patient much more alert and comfortable appearing this a.m. Review of Systems Unable to obtain Physical Exam Vital Signs: Vital Signs: Last Vital Signs Temp 97.7 F 11/10/24 07:26 Pulse 71 11/10/24 07:26 Resp 16 11/10/24 07:26 BP 109/60 11/10/24 07:26 Pulse Ox 97 11/10/24 07:26 O2 Del Method Room Air 11/10/24 07:26 BMI result Body Mass Index 20.2 Const: Other: Awake alert nonverbal Resp: Other: Clear to auscultation bilaterally no rales rhonchi or wheezes Cardio: Other: No S4; positive S1-S2; no S3 murmurs rubs or gallops GI: Other: Soft nontender normoactive bowel sounds Extrem: Other: No edema bilaterally Objective Data Active Medications Acetaminophen (Acetaminophen 325 Mg Tablet) 650 mg PO Q6H PRN PRN Reason: Pain, Mild 1-3,fever,headache Last Admin: 11/10/24 09:38 Dose: 650 mg Documented By: MALCOLM Calcitriol (Calcitriol 0.25 Mcg Capsule) 0.5 mcg PO DAILY [facility] Last Admin: 11/10/24 08:14 Dose: 0.5 mcg Documented By: MALCOLM Calcium Carbonate/Cholecalciferol (Calcium + Vitamin D 250 Mg Tablet) 250 mg PO BID@1200,2000 [facility] Last Admin: 11/09/24 19:57 Dose: 250 mg Documented By: REMBERTO Divalproex Sodium (Divalproex Sodium 250 Mg Tablet.) 250 mg PO BID [facility] Last Admin: 11/10/24 08:15 Dose: 250 mg Documented By: MALCOLM Docusate Sodium (Docusate Sodium 100 Mg Capsule) 100 mg PO BID [facility] Last Admin: 11/10/24 08:14 Dose: 100 mg Documented By: MALCOLM Enoxaparin Sodium (Enoxaparin Sodium 40 Mg/0.4 Ml Syringe) 40 mg SUBCUT Q24H [facility] Last Admin: 11/09/24 19:57 Dose: 40 mg Documented By: REMBERTO Fluvoxamine Maleate (Fluvoxamine Maleate 50 Mg Tablet) 50 mg PO BID [facility] Last Admin: 11/10/24 08:15 Dose: 50 mg Documented By: MALCOLM Lactulose (Lactulose 20 Gm/30 Ml Solution) 30 gm PO TID [facility] Last Admin: 11/10/24 08:14 Dose: 30 gm Documented By: MALCOLM Levothyroxine Sodium (Levothyroxine Sodium 112 Mcg Tablet) 112 mcg PO DAILY@0630 [facility] Last Admin: 11/10/24 06:10 Dose: 112 mcg Documented By: REMBERTO Lorazepam (Lorazepam 1 Mg Tablet) 1 mg PO DAILY PRN PRN Reason: AGITATION WITH PODIATRY APPT Midodrine (Midodrine Hcl 5 Mg Tablet) 5 mg PO TID@0800,1200,1600 [facility] Last Admin: 11/10/24 08:14 Dose: 5 mg Documented By: MALCOLM Mirtazapine (Mirtazapine 7.5 Mg Tablet) 7.5 mg PO BEDTIME [facility] Last Admin: 11/09/24 19:58 Dose: 7.5 mg Documented By: REMBERTO Multivitamins/Vitamin C (Multivitamin Tablet) 1 tab PO DAILY [facility] Last Admin: 11/10/24 08:15 Dose: 1 tab Documented By: MALCOLM Omeprazole (Omeprazole 20 Mg Capsule.Dr) 20 mg PO DAILY@0630 [facility] Last Admin: 11/10/24 06:10 Dose: 20 mg Documented By: REMBERTO Polyethylene Glycol (Polyethylene Glycol 3350 17 Gm Powd.Pack) 17 gm PO DAILY [facility] Last Admin: 11/10/24 08:15 Dose: 17 gm Documented By: MALCOLM Quetiapine Fumarate (Quetiapine Fumarate 25 Mg Tablet) 75 mg PO BID@0800,1200 [facility] Last Admin: 11/10/24 08:15 Dose: 75 mg Documented By: MALCOLM Sodium Chloride (0.9 % Sodium Chloride Flush 3 Ml Syringe) 3 ml IVFLUSH [facility] Last Admin: 11/10/24 08:29 Dose: 3 ml Documented By: MALCOLM Tamsulosin HCl (Tamsulosin Hcl 0.4 Mg Capsule) 0.4 mg PO BEDTIME [facility] Last Admin: 11/09/24 19:58 Dose: 0.4 mg Documented By: REMBERTO Labs 11/08/24 15:33 11/08/24 15:33 Labs: Laboratory Results - last 24 hr 11/09/24 16:20 Urine Color Yellow Urine Appearance Cloudy Urine pH 6.5 Ur Specific [place] 1.015 Urine Protein Trace Urine Glucose (UA) Negative Urine Ketones Trace Urine Blood Small (1+) H Urine Nitrite Positive H Ur Leukocyte Esterase Large (3+) H Urine RBC 0-2 Urine WBC >50 H Ur Squamous Epith Cells 0-2 Urine Bacteria 3+ Hyaline Casts 0-2 Assessment and Plan (1) Fecal impaction in rectum: Status: Acute Plan Pt is a 64-year-old male with a PMH significant for?down syndrome, Alzheimer's dementia, celiac disease, microcephaly, and nonverbal at baseline who presents to the ED from long term for evaluation of constipation. 1.Fecal impaction -good response to therapy -continue lactulose to 30 mL t.i.d. and continue current regimen -return to long term 11/12/2024 2.Hypotension -acceptable control at this time -continue midodrine 3.Hypothyroidism Continue levothyroxine Full Code Lovenox Quality Stroke Does the patient have a stroke diagnosis?: No VTE Prior VTE?: No VTE Risk Level:: Medical - moderate - high VTE Device Contraindication: Treatment Not Indicated VTE Drug Contraindication: N/A - Med Ordered
[2024-11-10 12:48] VITALS: BP 92/49
[2024-11-10] MEDS: Calcium + Vitamin D 250 MG TABLET PO ×2 (12:49→19:57)
[2024-11-10 15:10] VITALS: BP 93/51; PULSE 68; RESP 14; TEMP 36.6; O2SAT 98
[2024-11-10] MEDS: Enoxaparin Sodium 40 MG/0.4 ML SYRINGE SUBCUT (18:08)
[2024-11-10] MEDS: Tamsulosin HCL 0.4 MG CAPSULE PO (19:56)
[2024-11-10] MEDS: Mirtazapine 7.5 MG TABLET PO (19:57)
[2024-11-10 20:00] VITALS: BP 100/51; PULSE 67; RESP 16; TEMP 36.2; O2SAT 98
[2024-11-11] VITALS (7 sets, daily range): BP systolic 88–134; BP diastolic 50–69; PULSE 60–67; RESP 14–20; TEMP 36.2–36.4; O2SAT 96–99
[2024-11-11] MEDS: Omeprazole 20 MG CAPSULE.DR PO (06:19)
[2024-11-11] MEDS: Levothyroxine Sodium 112 MCG TABLET PO (06:19)
[2024-11-11] MEDS: fluvoxaMINE Maleate 50 MG TABLET PO ×2 (07:55→19:56)
[2024-11-11] MEDS: Docusate Sodium 100 MG CAPSULE PO ×2 (07:55→19:59)
[2024-11-11] MEDS: calcitrioL 0.25 MCG CAPSULE 0.5 MCG PO (07:55)
[2024-11-11] MEDS: Divalproex Sodium 250 MG TABLET.DR PO ×2 (07:58→20:01)
[2024-11-11] MEDS: QUEtiapine Fumarate 25 MG TABLET 75 MG PO ×2 (07:58→11:20)
[2024-11-11] MEDS: Midodrine HCl 5 MG TABLET PO ×3 (07:58→16:24)
[2024-11-11] MEDS: Multivitamin TABLET 1 TAB PO (07:58)
[2024-11-11] MEDS: polyethylene glycoL 3350 17 GM POWD.PACK PO (07:58)
[2024-11-11] MEDS: 0.9 % Sodium Chloride Flush 3 ML SYRINGE IVFLUSH ×3 (07:59→23:27)
[2024-11-11] MEDS: Calcium + Vitamin D 250 MG TABLET PO ×2 (11:20→19:57)
--- NOTE | 2024-11-11 12:08 | HO.PM.IMPN ---
Subjective Subjective Date of Service: 11/11/24 Interval History: No acute issues overnight. Appetite good spirits good Review of Systems Unable to obtain Physical Exam Vital Signs: Vital Signs: Last Vital Signs Temp 97.5 F 11/11/24 07:06 Pulse 64 11/11/24 11:11 Resp 20 11/11/24 11:11 BP 88/50 L 11/11/24 11:11 Pulse Ox 97 11/11/24 07:06 O2 Del Method Room Air 11/11/24 07:06 BMI result Body Mass Index 20.2 Const: Other: Awake alert nonverbal Resp: Other: Clear to auscultation bilaterally no rales rhonchi or wheezes Cardio: Other: No S4; positive S1-S2; no S3 murmurs rubs or gallops GI: Other: Soft nontender normoactive bowel sounds Extrem: Other: No edema bilaterally Objective Data Active Medications Acetaminophen (Acetaminophen 325 Mg Tablet) 650 mg PO Q6H PRN PRN Reason: Pain, Mild 1-3,fever,headache Last Admin: 11/10/24 20:10 Dose: 650 mg Documented By: REMBERTO Calcitriol (Calcitriol 0.25 Mcg Capsule) 0.5 mcg PO DAILY [facility] Last Admin: 11/11/24 07:55 Dose: 0.5 mcg Documented By: MALCOLM Calcium Carbonate/Cholecalciferol (Calcium + Vitamin D 250 Mg Tablet) 250 mg PO BID@1200,2000 [facility] Last Admin: 11/11/24 11:20 Dose: 250 mg Documented By: MALCOLM Divalproex Sodium (Divalproex Sodium 250 Mg Tablet.) 250 mg PO BID [facility] Last Admin: 11/11/24 07:58 Dose: 250 mg Documented By: MALCOLM Docusate Sodium (Docusate Sodium 100 Mg Capsule) 100 mg PO BID [facility] Last Admin: 11/11/24 07:55 Dose: 100 mg Documented By: MALCOLM Enoxaparin Sodium (Enoxaparin Sodium 40 Mg/0.4 Ml Syringe) 40 mg SUBCUT Q24H [facility] Last Admin: 11/10/24 18:08 Dose: 40 mg Documented By: MALCOLM Fluvoxamine Maleate (Fluvoxamine Maleate 50 Mg Tablet) 50 mg PO BID [facility] Last Admin: 11/11/24 07:55 Dose: 50 mg Documented By: MALCOLM Lactulose (Lactulose 20 Gm/30 Ml Solution) 30 gm PO TID [facility] Last Admin: 11/11/24 08:09 Dose: Not Given Documented By: MALCOLM Non-Admin Reason: Patient Refused Levothyroxine Sodium (Levothyroxine Sodium 112 Mcg Tablet) 112 mcg PO DAILY@0630 [facility] Last Admin: 11/11/24 06:19 Dose: 112 mcg Documented By: REMBERTO Lorazepam (Lorazepam 1 Mg Tablet) 1 mg PO DAILY PRN PRN Reason: AGITATION WITH PODIATRY APPT Midodrine (Midodrine Hcl 5 Mg Tablet) 5 mg PO TID@0800,1200,1600 [facility] Last Admin: 11/11/24 11:20 Dose: 5 mg Documented By: MALCOLM Mirtazapine (Mirtazapine 7.5 Mg Tablet) 7.5 mg PO BEDTIME [facility] Last Admin: 11/10/24 19:57 Dose: 7.5 mg Documented By: REMBERTO Multivitamins/Vitamin C (Multivitamin Tablet) 1 tab PO DAILY [facility] Last Admin: 11/11/24 07:58 Dose: 1 tab Documented By: MALCOLM Omeprazole (Omeprazole 20 Mg Capsule.Dr) 20 mg PO DAILY@0630 [facility] Last Admin: 11/11/24 06:19 Dose: 20 mg Documented By: REMBERTO Polyethylene Glycol (Polyethylene Glycol 3350 17 Gm Powd.Pack) 17 gm PO DAILY [facility] Last Admin: 11/11/24 07:58 Dose: 17 gm Documented By: MALCOLM Quetiapine Fumarate (Quetiapine Fumarate 25 Mg Tablet) 75 mg PO BID@0800,1200 [facility] Last Admin: 11/11/24 11:20 Dose: 75 mg Documented By: MALCOLM Sodium Chloride (0.9 % Sodium Chloride Flush 3 Ml Syringe) [facility] Last Admin: 11/11/24 07:59 Dose: 3 ml Documented By: MALCOLM Tamsulosin HCl (Tamsulosin Hcl 0.4 Mg Capsule) 0.4 mg PO BEDTIME [facility] Last Admin: 11/10/24 19:56 Dose: 0.4 mg Documented By: REMBERTO Labs 11/08/24 15:33 11/08/24 15:33 Microbiology Microbiology Results: Microbiology 11/09/24 Unknown Urine Culture - Preliminary Urine Catheterized - Straight Catheter Culture in progress. Assessment and Plan (1) Fecal impaction in rectum: Status: Acute Plan Pt is a 64-year-old male with a PMH significant for?down syndrome, Alzheimer's dementia, celiac disease, microcephaly, and nonverbal at baseline who presents to the ED from shelter for evaluation of constipation. 1.Fecal impaction -good response to therapy -continue lactulose to 30 mL t.i.d. and continue current regimen -return to shelter 11/12/2024 2.Hypotension -acceptable control at this time -continue midodrine 3.Hypothyroidism Continue levothyroxine Full Code Lovenox Quality Stroke Does the patient have a stroke diagnosis?: No VTE Prior VTE?: No VTE Risk Level:: Medical - moderate - high VTE Device Contraindication: Treatment Not Indicated VTE Drug Contraindication: N/A - Med Ordered
--- NOTE | 2024-11-11 14:23 | PC.NURSE ---
Spoke with Malvin from with update on pts status, per MD Montalvo note pt to be DCd 11/12/24. Malvin requesting call with [facility], .
[2024-11-11] MEDS: Enoxaparin Sodium 40 MG/0.4 ML SYRINGE SUBCUT (18:05)
[2024-11-11] MEDS: Tamsulosin HCL 0.4 MG CAPSULE PO (19:57)
[2024-11-11] MEDS: Mirtazapine 7.5 MG TABLET PO (19:59)
[2024-11-11] MEDS: Lactulose 20 GM/30 ML SOLUTION 30 GM PO (20:03)
[2024-11-12 04:00] VITALS: BP 97/52; PULSE 69; RESP 18; TEMP 36.3; O2SAT 97
[2024-11-12] MEDS: Omeprazole 20 MG CAPSULE.DR PO (05:57)
[2024-11-12] MEDS: Levothyroxine Sodium 112 MCG TABLET PO (05:57)
[2024-11-12 07:58] VITALS: BP 103/59; PULSE 72; RESP 16; TEMP 36.8; O2SAT 94
[2024-11-12] MEDS: calcitrioL 0.25 MCG CAPSULE 0.5 MCG PO (09:17)
[2024-11-12] MEDS: Acetaminophen 325 MG TABLET 650 MG PO (09:29)
[2024-11-12] MEDS: QUEtiapine Fumarate 25 MG TABLET 75 MG PO ×2 (09:30→13:04)
[2024-11-12] MEDS: polyethylene glycoL 3350 17 GM POWD.PACK PO (09:30)
[2024-11-12] MEDS: Multivitamin TABLET 1 TAB PO (09:30)
[2024-11-12] MEDS: 0.9 % Sodium Chloride Flush 3 ML SYRINGE IVFLUSH ×2 (09:31→15:55)
[2024-11-12] MEDS: Docusate Sodium 100 MG CAPSULE PO (09:31)
[2024-11-12] MEDS: Divalproex Sodium 250 MG TABLET.DR PO (09:31)
[2024-11-12] MEDS: fluvoxaMINE Maleate 50 MG TABLET PO (09:31)
[2024-11-12] MEDS: Midodrine HCl 5 MG TABLET PO ×3 (09:31→15:55)
--- NOTE | 2024-11-12 11:16 | P.DS_ITS ---
DS: Providers Provider Date of Service: 11/12/24 Date of admission: 11/08/24 18:14 Date of discharge: 11/12/24 Primary care physician: Hong Griffith III, MD Consults: 11/08/24 18:13 Consult to General Surgery Routine Consulting Provider: [facility] Reason for consultation: Fecal impaction, ?Disimpaction in the OR DS: Diagnosis Discharge Diagnosis (1) Fecal impaction in rectum: Status: Acute DS: Summary Hospital Course Hospital Course: 64-year-old male with a PMH significant for?down syndrome, Alzheimer's dementia, celiac disease, microcephaly, and nonverbal at baseline who presents to the ED from custodial for evaluation of constipation. Staff report patient has not had a bowel movement or passing flatus x5 days, as well as decreased appetite x3 days. Patient normally has bowel movement every other day. Staff have noticed some tenderness and bloating to abd and that he has been unbalanced when walking, which is new. Was treated with MiraLax to no effect. Denies nausea and vomiting. CT of abdomen and pelvis showed rectal fecal impaction with large stool ball rectal vault as well as abundant fecal material throughout remainder of colon consistent with obstipation. No evidence of SBO. ED clinicians were unable to manually disimpact in the ED. ED clinicians discussed with General surgery who recommended exhausting medical management before consideration of disimpaction in the OR. In the ED pt with soft BP as low as 98/53. Labs were grossly unremarkable and around baseline for patient. Stable macrocytic anemia of 11.8 her 34.8. No michael kocytosis. No significant electrolyte abnormalities. Renal function WNL. Hepatic function baseline. Chronically elevated lipase around baseline. Tested negative for flu, COVID, RSV. EKG demonstrated sinus rhythm short [place] but no evidence of significant ST elevations or depressions. Pt was treated with lactulose, MiraLax, Ativan, and IVF, and received a soapsuds enema in the ED. Pt will be admitted to the hospital under observation for treatment and further evaluation of persistent fecal impaction not responsive to ED treatment. Hospital Course Patient admitted to general medical floor and seen in consultation by surgery who felt there was no need for surgical intervention. He was aggressively given fleets/soapsuds enemas with minimal response. Lactulose was started and after 2 doses of lactulose he had several large bowel movements. His diet was advanced and on the day before discharge he had a large bowel movement and is exam is unremarkable. At this point in time he is medically acceptable to transfer back to the custodial and follow up with his PCP Time Attestation Discharge Coordination Time (in mins): 35 Quality: Safe Use of Opioids Does Pt have an Active Cancer Diagnosis on the Problem List?: No Quality: Stroke Does the patient have a stroke diagnosis?: No Physical Exam Vital Signs: Vital Signs: Last Vital Signs Temp 98.2 F 11/12/24 07:58 Pulse 72 11/12/24 07:58 Resp 16 11/12/24 07:58 BP 103/59 L 11/12/24 07:58 Pulse Ox 94 11/12/24 07:58 O2 Del Method Room Air 11/12/24 07:58 BMI result Body Mass Index 20.2 Const: Other: Awake alert nonverbal Resp: Other: Clear to auscultation bilaterally no rales rhonchi or wheezes Cardio: Other: No S4; positive S1-S2; no S3 murmurs rubs or gallops GI: Other: Soft nontender normoactive bowel sounds Extrem: Other: No edema bilaterally DS: Data Data Completed and Pending Labs on day of discharge: Preliminary micro results at discharge 11/09/24 Unknown Urine Culture - Preliminary Urine Catheterized - Straight Catheter Staphylococcus aureus Discharge Plan Discharge Anticipated Discharge Date/Time: 11/12/24 11:11 Patient Disposition: Xfer [facility] Discharge Diagnosis: Fecal impaction Referrals: Hong Griffith III, MD [Primary Care Provider] - 1 Week Discharge Medications: Continued quetiapine 25 mg tablet 75 mg PO BID@0800,1200 acetaminophen 325 mg Tablet 325 mg PO Q4H PRN (Reason: HEADACHE/BODYACHE/JOINT PAIN/FEVER) divalproex 250 mg tablet,delayed release (DR/EC) 250 mg PO BID polyethylene glycol 3350 [Miralax] 17 gram Powder In Packet 17 g PO DAILY calcium carbonate-vitamin D3 600 mg-5 mcg (200 unit) Tablet 1 tab PO BID@1200,2000 tamsulosin 0.4 mg capsule 0.4 mg PO BEDTIME calcitriol 0.5 mcg capsule 0.5 mcg PO DAILY docusate sodium [Colace] 100 mg Capsule 100 mg PO BID midodrine 2.5 mg tablet 5 mg PO TID@0800,1200,1600 fluvoxamine 50 mg tablet 50 mg PO BID levothyroxine 112 mcg tablet 112 mcg PO DAILY@0630 esomeprazole magnesium 20 mg capsule,delayed release(DR/EC) 20 mg PO DAILY Balmex Adult Care 11.3 % Cream 1 appl TOPICAL BEDTIME Rx Instructions: apply a thin layer to rash in groin Tab-A-Tho Multivitamin w-iron 18-400 mg-mcg Tablet 1 tab PO DAILY menthol-zinc oxide [Calmoseptine] 0.44-20.6 % Ointment 1 appl TOPICAL BID PRN (Reason: SKIN BREAKDOWN) testosterone [AndroGel] 1.62 % (20.25 mg/1.25 gram) Gel In Packet 1 packet TRANSDERMAL MOWEFR@0900 Rx Instructions: apply to max area of ONE upper arem and shoulder mirtazapine 7.5 mg tablet 7.5 mg PO BEDTIME lorazepam [Ativan] 1 mg tablet 1 mg PO DAILY PRN (Reason: AGITATION WITH PODIATRY APPT) bacitracin 500 unit/gram ointment 1 appl topical TID PRN (Reason: MINOR CUTS/SCRAPES/ABRASIONS) lactulose [Enulose] 10 gram/15 mL solution 10 g PO DAILY PRN (Reason: Constipation) Discharge Orders: Discharge Order (Routine); Ordered 11/12/24 Ordered By: Brett Montalvo Diet: Advance to usual diet Activity on Discharge: As tolerated Stand Alone Forms: Patient Portal Discharge page Print Language: Macedonian Care Plan Goals: Resume all medications as taken previous to hospitalization Health Concerns: Continue current bowel regimen as outlined Plan of Treatment: Follow up with PCP next available Assessment: See discharge summary
--- NOTE | 2024-11-12 12:03 | MHC.CM.PN ---
Addendum entered by Rivka Elizabeth 11/12/24 15:42: APRIL SPOKE TO SACHA [phone] AND DELFINO [phone] AT [facility] BECAUSE PT HAS NO MED CHANGES, HE DOES NOT NEED ANY FORMS SIGNED THEY ARE AWARE PT IS BOOKED FOR 1700 TRANSPORT WITH [facility] THEY REQUESTED A RETURN TO DAY PROGRAM NOTE, REQUEST RELAYED TO HOSPITALIST MESSAGE LEFT FOR PTS GUARDIAN TOSIN LEO [phone] Original Note: PT IS MEDICALLY CLEARED TO DC APRIL SPOKE TO DELFINO [phone], RN AT [facility] HE REQUESTED PTS DCS AND MED LIST BE FAXED TO MAR[facility] E AT [phone] ONCE THEY RECEIVE THE DCS, THEY WILL RECONCILE PTS MEDS AND SEND A FAX BACK TO BE SIGNED BY THE HOSPITALIST INFO FAXED
[2024-11-12] MEDS: Calcium + Vitamin D 250 MG TABLET PO (13:04)
[2024-11-12 15:45] VITALS: BP 90/60; PULSE 61; RESP 16; TEMP 36.9; O2SAT 96
== END 2024-11-12 18:33 ==
LOC: HO.ED 14:22 → HO.EDOVER 18:32 → HO.S3 19:41
PROVIDERS: Physician Assistant; Admitting Provider Student in an Organized Health Care Education/Training Program; Emergency Provider Emergency Medicine; PCP Internal Medicine; Visit Provider Hospitalist
DX: K56.41 Fecal impaction (principal); I95.9 Hypotension, unspecified; E03.9 Hypothyroidism, unspecified; N40.0 Benign prostatic hyperplasia without lower urinary tract symptoms; Q90.9 Down syndrome, unspecified; G30.9 Alzheimer's disease, unspecified; F02.80 Dementia in other diseases classified elsewhere, unspecified severity, without behavioral disturbance, psychotic disturbance, mood disturbance, and anxiety; K90.0 Celiac disease; Z79.899 Other long term (current) drug therapy; Z03.818 Encounter for observation for suspected exposure to other biological agents ruled out
CPT/HCPCS: 0241U; 74176; 80048; 80076; 81001; 83690; 83735; 85025; 85610; 87086; 87088; 87186; 93005; 96360; 96361; 96372; 99221; 99285; J1650

== ENCOUNTER → 2024-11-08 12:25 | Outpatient (BNV) | payer MEDICARE, MEDICAID, SELFPAY | PROVIDERS: Admitting Provider Student in an Organized Health Care Education/Training Program; Emergency Provider Emergency Medicine; PCP Internal Medicine; Visit Provider Internal Medicine Cardiovascular Disease | DX: R53.1 Weakness (principal) | CPT/HCPCS: 93010 ==

== ENCOUNTER → 2024-11-08 12:36 | Outpatient (BNV) | payer MEDICARE, MEDICAID, SELFPAY | PROVIDERS: Emergency Provider Emergency Medicine; PCP Internal Medicine; Visit Provider Radiology Diagnostic Radiology | DX: K56.41 Fecal impaction (principal) | CPT/HCPCS: 74176 ==

== ENCOUNTER → 2024-11-08 18:14 | Outpatient (BNV) | payer MEDICARE, MEDICAID, SELFPAY | PROVIDERS: Admitting Provider Student in an Organized Health Care Education/Training Program; Emergency Provider Emergency Medicine; PCP Internal Medicine; Visit Provider Surgery | DX: K56.41 Fecal impaction (principal) | CPT/HCPCS: 99222 ==

== ENCOUNTER → 2024-11-08 18:14 | Outpatient (BNV) | payer MEDICARE, MEDICAID, SELFPAY | PROVIDERS: Admitting Provider Student in an Organized Health Care Education/Training Program; Emergency Provider Emergency Medicine; PCP Internal Medicine; Visit Provider Student in an Organized Health Care Education/Training Program | DX: K56.41 Fecal impaction (principal) | CPT/HCPCS: 99222; 99232; 99239 ==

== ENCOUNTER 2025-03-26 20:17 | Emergency (ER) | payer MEDICARE, MEDICAID, SELFPAY ==
--- NOTE | ~2025-03-26 | XR_ITS ---
CLINICAL HISTORY: constipation 1 view abdomen Comparison: None Findings: No pneumoperitoneum or pneumatosis. No abnormal calcifications. No acute fractures. There are moderately distended loops of gas-filled bowel in the upper central abdomen. There is a large amount of stool. IMPRESSION: 1. Large amount of stool. 2. Gaseous distention of bowel loops in the central upper abdomen. Ileus is favored, however clinical follow-up recommended. This document has been electronically signed by: John Russell MD on 03/26/2025 21:43:00
[2025-03-26 20:27] VITALS: PULSE 67; O2SAT 94
[2025-03-26 20:36] VITALS: BP 131/67; PULSE 73; RESP 20; TEMP 36.9; O2SAT 100; BMI 22.0
[2025-03-26] MEDS: Acetaminophen 325 MG TABLET PO (21:17)
[2025-03-27 00:06] VITALS: BP 101/67; PULSE 65; RESP 16; TEMP 36.6; O2SAT 97
--- NOTE | 2025-03-27 00:10 | MHC.EDTECH ---
This pct assumed carte of Patient at 2300 ,vitals taken ,Patient resting quietly in bed ,[employer] worker at bedside .
[2025-03-27] MEDS: Sodium Phosphate,Mono-Dibasic 133 ML ENEMA PR (01:45)
[2025-03-27 01:46] VITALS: BP 124/70; PULSE 65; RESP 16; TEMP 36.4; O2SAT 97
--- NOTE | 2025-03-27 03:10 | ED_ITS ---
HPI - General Adult General Chief complaint: General Medical Stated complaint: malaise,headache Time Seen by Provider: 03/27/25 00:20 Source: patient and other (home care liaison) Limitations: other (Down's, non-verbal) History of Present Illness ED Provider: Janna Mccann PA-C HPI narrative: 65-year-old male with a history of chronic constipation, Down syndrome who presents with constipation. Related Data Home Medications ?Medication ?Instructions ?Recorded ?Confirmed bacitracin 500 unit/gram topical 1 appl topical TID PRN MINOR 04/08/23 11/08/24 ointment CUTS/SCRAPES/ABRASIONS lactulose 10 gram/15 mL oral 10 g PO DAILY PRN Constipation 04/08/23 11/08/24 solution (Enulose) lorazepam 1 mg tablet (Ativan) 1 mg PO DAILY PRN AGITATION WITH 04/08/23 11/08/24 PODIATRY APPT mirtazapine 7.5 mg tablet 7.5 mg PO BEDTIME 04/08/23 11/08/24 acetaminophen 325 mg tablet 325 mg PO Q4H PRN 11/08/24 11/08/24 HEADACHE/BODYACHE/JOINT PAIN/FEVER calcitriol 0.5 mcg capsule 0.5 mcg PO DAILY 11/08/24 11/08/24 calcium 600 mg (as 1 tab PO BID@1200,2000 11/08/24 11/08/24 carbonate)-vitamin D3 5 mcg (200 unit) tablet divalproex 250 mg tablet,delayed 250 mg PO BID 11/08/24 11/08/24 release docusate sodium 100 mg capsule 100 mg PO BID 11/08/24 11/08/24 (Colace) esomeprazole magnesium 20 mg 20 mg PO DAILY 11/08/24 11/08/24 capsule,delayed release fluvoxamine 50 mg tablet 50 mg PO BID 11/08/24 11/08/24 levothyroxine 112 mcg tablet 112 mcg PO DAILY@0630 11/08/24 11/08/24 menthol 0.44 %-zinc oxide 20.6 % 1 appl topical BID PRN SKIN 11/08/24 11/08/24 topical ointment (Calmoseptine) BREAKDOWN midodrine 2.5 mg tablet 5 mg PO TID@0800,1200,1600 11/08/24 11/08/24 multivitamin-ferrous 1 tab PO DAILY 11/08/24 11/08/24 fumarate-folic acid 18 mg-400 mcg tablet (Tab-A-Tho Multivitamin w-iron) polyethylene glycol 3350 17 gram 17 g PO DAILY 11/08/24 11/08/24 oral powder packet (Miralax) quetiapine 25 mg tablet 75 mg PO BID@0800,1200 11/08/24 11/08/24 tamsulosin 0.4 mg capsule 0.4 mg PO BEDTIME 11/08/24 11/08/24 testosterone 1.62 % (20.25 mg/1.25 1 packet transdermal MOWEFR@0900 11/08/24 11/08/24 gram) transdermal gel packet (AndroGel) zinc oxide-vitamin B5-vit E 11.3% 1 appl topical BEDTIME 11/08/24 11/08/24 topical cream (Balmex Adult Care) Allergies Allergy/AdvReac Type Severity Reaction Status Date / Time gluten [GLUTEN] Allergy Unknown UNK Verified 03/26/25 20:37 Iodinated Contrast Media Allergy Unknown UNK Verified 03/26/25 20:37 [IVP DYE] Review of Systems Review of Systems: Unable to obtain secondary to the patient's cognitive impairment in his nonverbal Yes all other systems are reviewed and are negative PMFSH Past Medical History Attestation statement: The following information was validated with the patient. Medical History Alzheimer's dementia Down syndrome Celiac disease Social History Social History Patient Tobacco Use Status: Never used Tobacco Advance Directives: Yes Advance Directives on File: Yes Advance Directives Date on File: 11/08/24 service: No Physical Exam ED Vital Signs: Vital Signs - 24 hr 03/26/25 20:36 03/27/25 00:06 03/27/25 01:46 Temperature 98.5 F 97.9 F 97.6 F Pulse Rate 73 65 65 Respiratory Rate 20 16 16 Blood Pressure 131/67 101/67 124/70 Pulse Oximetry 100 97 97 Oxygen Delivery Method Room Air Room Air Room Air BMI result Body Mass Index 22.0 Const Other: Awake Orientation/consciousness: oriented to person Resp Effort & Inspection: normal respiratory effort Cardio Other: Normal peripheral perfusion GI Other: Initially abdomen distended, fecal impaction noted, after disimpaction, abdomen is soft Skin Other: Warm dry no rash Neuro General: oriented to person Psych Other: Cooperative Medications Administered Discontinued Medications Generic Name Dose Route Start Last Admin Trade Name Vargas PRN Reason Stop Dose Admin Acetaminophen 325 mg 03/26/25 21:08 03/26/25 21:17 Acetaminophen 325 Mg Tablet PO 03/26/25 21:09 325 mg ONCE ONE Administration Sodium Biphosphate/Sodium Phosphate 133 ml 03/27/25 00:54 03/27/25 01:45 Sodium Phosphate,Garrard-Dibasic 133 Ml Enema IA 03/27/25 00:55 133 ml ONCE ONE Administration Medical Decision Making Medical Decision Making [facility] Narrative: 65-year-old male with a history of chronic constipation, Down syndrome who presents with constipation. Problem: Down syndrome and constipation History: Per caregiver I have considered the following differential diagnoses: Constipation, fecal impaction, bowel obstruction Plan: KUB ordered from triage, there was not a bowel pattern that is consistent with obstruction, he is also not had active nausea vomiting. He does have a fecal impaction which we will be removed. With we will start with a Fleet enema. I have independently reviewed the following tests: KUB:MPRESSION: 1. Large amount of stool. 2. Gaseous distention of bowel loops in the central upper abdomen. Ileus is favored, however clinical follow-up recommended. Discharge Plan Discharge Clinical Impression: Constipation, Fecal impaction Patient Disposition: Home, Self-Care Instructions: Constipation (ED) Additional Instructions: The patient was found to be significantly constipated. He had a fecal impaction. The fecal obstruction was removed from the rectum after he had an enema. I have made modifications to his daily bowel regimen. He should stay on this regimen until he has multiple large volume bowel movements. This could take several days. He should also follow up with his primary care provider within the week. Prescriptions: No Action quetiapine 25 mg tablet 75 mg PO BID@0800,1200 acetaminophen 325 mg Tablet 325 mg PO Q4H PRN (Reason: HEADACHE/BODYACHE/JOINT PAIN/FEVER) divalproex 250 mg tablet,delayed release (DR/EC) 250 mg PO BID polyethylene glycol 3350 [Miralax] 17 gram Powder In Packet 17 g PO DAILY calcium carbonate-vitamin D3 600 mg-5 mcg (200 unit) Tablet 1 tab PO BID@1200,2000 tamsulosin 0.4 mg capsule 0.4 mg PO BEDTIME calcitriol 0.5 mcg capsule 0.5 mcg PO DAILY docusate sodium [Colace] 100 mg Capsule 100 mg PO BID midodrine 2.5 mg tablet 5 mg PO TID@0800,1200,1600 fluvoxamine 50 mg tablet 50 mg PO BID levothyroxine 112 mcg tablet 112 mcg PO DAILY@0630 esomeprazole magnesium 20 mg capsule,delayed release(DR/EC) 20 mg PO DAILY Balmex Adult Care 11.3 % Cream 1 appl TOPICAL BEDTIME Rx Instructions: apply a thin layer to rash in groin Tab-A-Tho Multivitamin w-iron 18-400 mg-mcg Tablet 1 tab PO DAILY menthol-zinc oxide [Calmoseptine] 0.44-20.6 % Ointment 1 appl TOPICAL BID PRN (Reason: SKIN BREAKDOWN) testosterone [AndroGel] 1.62 % (20.25 mg/1.25 gram) Gel In Packet 1 packet TRANSDERMAL MOWEFR@0900 Rx Instructions: apply to max area of ONE upper arem and shoulder mirtazapine 7.5 mg tablet 7.5 mg PO BEDTIME lorazepam [Ativan] 1 mg tablet 1 mg PO DAILY PRN (Reason: AGITATION WITH PODIATRY APPT) bacitracin 500 unit/gram ointment 1 appl topical TID PRN (Reason: MINOR CUTS/SCRAPES/ABRASIONS) lactulose [Enulose] 10 gram/15 mL solution 10 g PO DAILY PRN (Reason: Constipation) Print Language: Maltese
[2025-03-27 03:20] VITALS: BP 119/68; PULSE 73; RESP 20; TEMP 36.2; O2SAT 100
[2025-03-27 03:39] VITALS: BP 119/68; PULSE 73; RESP 20; TEMP 36.2; O2SAT 100
== END 2025-03-27 03:39 | disposition home or self-care (01) ==
PROVIDERS: Emergency Provider Emergency Medicine; PCP Internal Medicine
DX: K59.00 Constipation, unspecified (principal); K56.41 Fecal impaction
CPT/HCPCS: 74018; 99284

== ENCOUNTER → 2025-03-26 21:10 | Outpatient (BNV) | payer MEDICARE, MEDICAID, SELFPAY | PROVIDERS: PCP Internal Medicine; Visit Provider Radiology Diagnostic Radiology | DX: R19.5 Other fecal abnormalities (principal); R14.0 Abdominal distension (gaseous) | CPT/HCPCS: 74018 ==

== ENCOUNTER 2025-04-01 12:35 | Outpatient (AMB) | payer MEDICARE, MEDICAID, SELFPAY ==
--- OUTSIDE RECORDS SUMMARY | 2025-04-01 12:55 | XMS_ITS | Encounter Summary ---
Author Organization [facility] Address [id number] [place] [id number] Care Team Providers Care Car Shifter Name Role Phone Hong Griffith MD Primary Care Provider [phone] Reason for Visit * Reason Onset Date Comments Prior Authorization 2025 Prior Author ization for Esomeprazole - CoverMyMeds Encounter Details Date Type Department Care Team ([facility] Contact Info) Description 2025 Telephone Adult Medicine [address] [phone] Rosanna Shearer RNoperational meteorologist (Prior Authorization for Esomeprazole - CoverMyMeds) Social History Tobacco Use Types Packs/Day Years Used Date Smoking Tobacco: Never Smokeless Tobacco: Never Alcohol Use Standard Drinks/Week Comments No 0 (1 standard drink = 0.6 oz pur e alcohol) Sex and Gender Information Value Date Recorded Sex Assigned at Not on file Legal Sex Male 7:52 PM EST Gender Identity Not on file Sexual Orientation Not on file documented as of this encounter Progress Notes * KRISTEL Olmedo - 03/29/2025 1:40 PM EDT Not sure what an electronic appeal request is. Can you possibly look into this? Thanks so much * Kymberly Fierro MA - 03/21/2025 3:43 PM EDT Unfavorable outcome Additional Information Required [facility] was not able to process the request because the previous Prior Authorization Request was Denied, please submit an electronic Appeal Request. You can also contact the plan at or fax in request to . * Mya Milian MA - 01/30/2025 9:43 AM EDT Prior authorization for the esomeprazole was completed today on [facility] Dx code K22.2 esophageal stricture Been on this since hospital visit in 09/2019 * Rosanna Shearer RN - 2025 2:40 PM EST Prior Authorization for Medication-do not complete and send this encounter unless you have the fax from the pharmacy. Is this a Cover My Meds request: Yes -- [place] Code [id number] Name of Medication Esomeprazole Magnesium Dose of Medication 20mg DR Capsules How does patient take this med? Take 1 capsule by mouth one time each day before breakfast. What Pharmacy did the fax come from: [facility] fax #: [phone] documented in this encounter Plan of Treatment Upcoming Encounters Date Type Department Care Team (Late st Contact Info) Description 04/03/2025 10:00 AM EDT Office Visit [address] [place] [phone] Hong Griffith MD [address] [place] [address] 05/01/2025 4:00 PM EDT Office Visit Adult [address] [phone] Susana Olivas PA [address] [place] [address] 05/09/2025 11:00 AM EDT Ancillary Procedure [facility] [address] [place] [address] 06/05/2025 9:30 AM EDT Office Visit [address] [phone] Hong Griffith MD [address] [place] [address] documented as of this encounter Visit Diagnoses Not on filedocumented in this encounter Care Teams Car Shifter Relationship Specialty Start Date End Date Hong Griffith MD [address] [place] [address] PCP - General 10/20/10 documented as of this encounter
--- OUTSIDE RECORDS SUMMARY | 2025-04-01 12:55 | XMS_ITS | Clinical Summary ---
Author Organization [facility] Address [address] [place] [address] Care Team Providers Care Ingot Buggy Operator Name Role Phone Hong Griffith MD Primary Care Provider [phone] Allergies Active Allergy Reactions Criticality Noted Date Comments Gluten 01/20/2011 Iodinated Contrast Media 11/24/2010 Wheat 06/15/2018 Medications Medication Sig Dispensed Refills Start Date End Date Status acetaminophen (TYLENOL) 325 MG tablet TAKE 1 TABLET BY MOUTH EVERY FOUR HOURS NEEDED FOR FEVER >/ = 100F OR DIRECTED IN ERICS PAIN INDICATORS 0 01/25/2022 Active bacitracin 500 UNIT/GM ointment HEATHER A THIN LAYER TO SUPERFICIAL ABRASIONS TID FOR 1 WEEK UTD 0 04/16/2020 Active calcitriol (ROCALTROL) 0.5 MCG capsule 0 06/30/2022 Active Calcium Carb-Cholecalciferol 600-400 MG-UNIT TABS Take 1 tablet by mouth. 0 10/04/2019 Active cefuroxime (CEFTIN) 500 MG tablet Take 500 mg by mouth 2 (two) times a day. 0 06/27/2022 Active divalproex (DEPAKOTE) [address] tablet 0 06/25/2022 Active Docusate Sodium (DSS) 100 MG CAPS Take 1 capsule by mouth 2 (two) times a day. 0 04/14/2022 Active esomeprazole (NexIUM) capsule 20 mg 0 06/22/2022 Active fluvoxaMINE (LUVOX) 100 MG tablet Take 1 tablet by mouth daily. 0 12/17/2019 Active ketoconazole (NIZORAL) 2 % cream 0 07/01/2022 Activ e Enulose 10 GM/15ML SOLN solution 0 06/21/2022 Active levothyroxine (SYNTHROID) tablet 112 mcg 0 06/30/2022 Active LORazepam (ATIVAN) 1 MG tablet 0 06/15/2022 Active Menthol-Zinc Oxide (Calmoseptine) 0.44-20.6 % OINT APPLY THIN LAYER (2 G) TOPICALLY EVERY EVENING 0 04/08/2022 Active midodrine (PROAMATINE) 2.5 MG tablet 0 06/30/2022 Active mirtazapine (REMERON) 7.5 MG tablet 0 06/30/2022 Active Multiple Vitamins-Iron (Tab-A-Tho/Iron/Bet a Carotene) TABS Take 1 tablet by mouth daily. 0 04/22/2022 Active Nutritional Supplements (Duocal) POWD Take 56 g by mouth. 0 12/03/2021 Activ e QUEtiapine (SEROquel) 25 MG tablet 0 05/31/2022 Active tamsulosin (FLOMAX) 0.4 MG CAPS 0 06/21/2022 Active Testosterone (Androderm) 2 MG/24HR PT24 patch 0 07/02/2020 Active Active Problems No known active problems Social History Tobacco Use Types Packs/Day Years Used Date Smoking Tobacco: Never Smokeless Tobacco: Never Alcohol Use Standard Drinks/Week Comments Never 0 (1 standard drink = 0.6 oz pur e alcohol) Sex and Gender Information Value Date Recorded Sex Assigned at Not on file Gender Identity Not on file Sexual Orientation Not on file Job Start Date Occupation Industry Not on file Not on file Not on file Last Filed Vital Signs Vital Sign Reading Time Taken Comments Blood Pressure - - Pulse 55 07/06/2022 10:21 AM EDT Temperature 36.1 ??C (97 ??F) 07/06/2022 10: 21 AM EDT Respiratory Rate - - Oxygen Saturation 93% 07/06/2022 10: 21 AM EDT Inhaled Oxygen Concentration - - Weight 49.4 kg (109 lb) 07/06/2022 10:2 1 AM EDT 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 Height - - Body Mass Index - - Plan of Treatment Health Maintenance Due Date Last Done Comments Hepatitis C Screening 1961 Depression Screening 1973 Preventative Health Evaluation 1979 Colon Cancer Screening (Colonoscopy) 2006 Shingrix-Zoster Vaccine (1 of 2) 2011 COVID-19 Vaccine ( season) 2024 10/30/2021, 01/19/2021, 12/18/2020 Influenza Vaccine (#1) 2024 , 08/29/2020, 08/23/2019, Additional history exists Pneumococcal Vaccine (2 of 2 - PCV) 2026 06/18/2018, 11/11/2010 DTap / Tdap / Td (3 - Td or Tdap) 12/03/2031 12/03/2021, 11/24/2010 RSV Adult > 60+ Yrs or (1 - 1-dose 75+ series) 01/16/2036 Pneumococcal Vaccine Aged Out 06/18/2018, 11/11/20 10 No longer eligible based on patient's age to complete this topic Hepatitis B Vaccines Aged Out No long er eligible based on patient's age to complete this topic RSV Ped < 20 months Aged Out No longe r eligible based on patient's age to complete this topic Care Teams Ingot Buggy Operator Relationship Specialty Start Date End Date Hong Griffith MD PCP - General Internal Medicine 03/24/22
--- OUTSIDE RECORDS SUMMARY | 2025-04-01 12:55 | XMS_ITS | Clinical Summary ---
Author Organization [facility] Address [address] [place] [phone] Phone Care Team Providers Care Drop Pit Worker Name Role Phone Hong Griffith MD Primary Care Provider [phone] Allergies Active Allergy Reactions Criticality Noted Date Comments Clonidine 04/13/2023 Unknown RXN Gluten 01/20/2011 Iodinated Contrast Media 12/14/2024 Medications divalproex (DEPAKOTE) [address] tablet Take 1 tablet (250 mg total) by mouth 2 (two) times a day. 12/03/19 Active fluvoxaMINE (LUVOX) 100 mg tablet Take 0.5 tablets (50 mg total) by mouth 2 (two) times a day. 12/17/19 20 Active QUEtiapine (SEROquel) 25 mg tablet Take 3 tablets (75 mg total) by mouth 2 (two) times a day. 05/31/20 22 Active bacitracin (bacitracin zinc) 500 unit/gram ointment Apply a thin layer topically 3 times daily as needed for minor cuts, scrapes and abrasions 05/21/20 24 Active ketoconazole (NIZORAL) 2 % cream Apply topically 2 (two) times a day. Active FERROUS GLUCONATE ORAL Take by mouth. Active LORazepam (ATIVAN) 1 mg tablet TAKE 1 TABLET BY MOUTH NEEDED FOR ANXIETY, TAKE 1 HOUR BY MOUTH PRIOR TO APPOINTMENT 08/23/20 24 Active menthol-zinc oxide (Calmoseptine) 0.44-20.6 % ointment Apply 1 Application topically 2 (two) times a day if needed for irritation. 04/08/20 22 Active nystatin (MYCOSTATIN) cream 07/31/20 24 Active zinc oxide (BALMEX) 11.3 % cream cream Apply 1 Squirt topically at bedtime. After bathing 05/21/20 24 Active testosterone 1.62 % (20.25 mg/1.25 gram) gel in packet 3 times a week A ctive caloric supplement (DUOCAL ORAL) Take by mouth. A ctive calcium carbonate-vit D3-min 600 mg-10 mcg (400 unit) tablet Take 1 tablet by mouth 2 (two) times a day. At 12 pm and 8 pm 60 tablet 11/28/19 25 Active levothyroxine (SYNTHROID, LEVOTHROID) 112 mcg tablet Take 1 tablet (112 mcg total) by mouth 1 (one) time each day before breakfast. And 1.5 tabs on tuesday' 32 tablet 11/28/19 25 Active levothyroxine sodium (LEVOTHYROXINE ORAL) Take 56 mcg by mouth every 7 (seven) days. Active midodrine (PROAMATINE) 10 mg tabletIndicatio ns:Postural hypotension,His tory of syncope Take 1 tablet (10 mg total) by mouth 3 (three) times a day before meals. 270 tablet 12/14/19 25 Active tamsulosin (FLOMAX) 0.4 mg 24 hr capsule TAKE 1 CAPSULE BY MOUTH EVERY NIGHT AT BEDTIME 90 capsule 12/24/19 25 Active multivitamin with minerals (Tab-A-Tho Multivitamin w-iron) 18-400 mg-mcg tablet tablet TAKE 1 TABLET BY MOUTH EVERY NIGHT AT BEDTIME 28 tablet 01/02/20 25 Active multivitamin (Multiple Vitamins) tablet Take 1 tablet by mouth 1 (one) time each day. 90 tablet 1 01/01/20 25 Active acetaminophen (TYLENOL) 325 mg tablet Take 1 tablet (325 mg total) by mouth every 4 (four) hours if needed for mild pain (fever >100 F). Tylenol 325 mg every 4 hours as needed for headaches, body aches and fever greater than 100 90 tablet 1 01/29/20 25 Active esomeprazole (NexIUM) [address] capsule TAKE 1 CAPSULE BY MOUTH EVERY MORNING BEFORE BREAKFAST 30 capsule 3 02/21/20 25 Active calcitrioL (ROCALTROL) 0.5 mcg capsule TAKE 1 CAPSULE BY MOUTH DAILY 28 capsule 2 03/05/20 25 Active mirtazapine (REMERON) 7.5 mg tablet TAKE 1 TABLET BY MOUTH EVERY NIGHT AT BEDTIME 90 tablet 1 03/25/20 25 Active lactulose (CHRONULAC) solution [id number] BY MOUTH DAILY NEEDED FOR CONSTIPATION. GIVE ONLY IF NO BOWEL MOVEMENT IN 48 HOURS, IF NO 100 mL 1 03/29/20 25 Active docusate sodium (COLACE) 100 mg capsule Take 1 capsule (100 mg total) by mouth 3 (three) times a day. 56 capsule 5 03/29/20 25 2024 Active polyethylene glycol (MIRALAX) 17 gram packet Take 17 g by mouth 1 (one) time each day. 510 g 2 03/29/20 25 2024 Active polyethylene glycol (MIRALAX) 17 gram packet Take 17 g by mouth 1 (one) time each day for 3 days. 119 g 2 03/29/20 25 2024 Active Colace 100 mg capsule Take 1 capsule (100 mg total) by mouth 3 (three) times a day. 90 each 03/29/20 25 2024 Active lactulose (CHRONULAC) solution Take 2.5 mL (1.6667 g total) by mouth 2 (two) times a day. 150 mL 2 03/29/20 25 2024 Active mirtazapine (REMERON) 7.5 mg tablet Take 1 tablet (7.5 mg total) by mouth at bedtime. 90 tablet 1 09/24/20 24 2024 Discontinued calcitrioL (ROCALTROL) 0.5 mcg capsule Take 1 capsule (0.5 mcg total) by mouth 1 (one) time each day. 90 capsule 1 09/24/20 24 2024 Discontinued lactulose (CHRONULAC) solution Take 15 mL (10 g total) by mouth if needed (Constipation) . 05/22/20 24 2024 Discontinued polyethylene glycol (MIRALAX) 17 gram packet Take 17 g by mouth 1 (one) time each day. 2024 Discontinued(R eorder) docusate sodium (COLACE) 100 mg capsule TAKE 1 CAPSULE BY MOUTH TWICE A DAY 56 capsule 5 01/02/20 25 2024 Discontinued(R eorder) Active Problems Problem Noted Date Diagnosed Date History of syncope 12/14/2024 Assessment & Plan (12/14/2024 10:46 AM EST): Orders: midodrine (PROAMATINE) 10 mg tablet; Take 1 tablet (10 mg total) by mouth 3 (three) times a day before meals. Transthoracic echocardiogram (TTE) complete with PRN contrast, bubble, strain, and 3D order panel; Future Down syndrome 09/26/2024 Hypothyroid 09/26/2024 Colon polyp 08/17/2023 Overview (09/26/2024): Colonoscopy in 2014. Singular polyp. Advised to repeat in 10 years. Functional urinary incontinence 12/03/2021 Overview (09/26/2024): 09/28/21 Davion Mahmood MD Aortic insufficiency 03/25/2021 Assessment & Plan (12/14/2024 10:46 AM EST): Mild on most recent echocardiogram from 2019; will repeat echocardiogram as above and readdress this as needed. Orders: ECG 12 lead Transthoracic echocardiogram (TTE) complete with PRN contrast, bubble, strain, and 3D order panel; Future Esophageal stricture 01/23/2020 Hypogonadism in male 01/23/2020 Recurrent acute pancreatitis 12/08/2018 Postural hypotension 10/30/2018 Overview (11/20/2024): Assessment & Plan (12/14/2024 10:46 AM EST): The patient has a longstanding history of postural hypotension as well as a history of syncope, previously treated with fludrocortisone; however, this was stopped due to the development of hyperkalemia. He has subsequently been treated with midodrine 5 mg 3 times daily. This is an increase from 2.5 mg 3 times daily as of 07/2024 when he had his most recent episode of syncope. Review of the hospital note from Ian Harvey on 08/02/2024 nevertheless, his systolic blood pressure shows that this episode may have been vasovagal in nature as it occurred while he was on the toilet; in October 2024 the patient was in the emergency room for constipation which may have been contributing at the time he had his most recent syncopal episode. In the ambulance he responded well to a fluid bolus; it does not appear as though the patient is remaining well-hydrated as he has to drink thickened liquids and it is hard for his caregivers to get him to do so adequately. I have asked his caregiver to encourage increased hydration as this may be contributing to his ongoing postural hypotension given his positive response to IV fluids while in the ambulance; if this becomes an ongoing issue, it is unclear if free water boluses via another route such as a PEG tube may be beneficial. Nevertheless, his systolic blood pressure remains only 80 mmHg today and he took his midodrine 5 mg approximately 1 hour ago. We will increase midodrine to 10 mg 3 times daily with holding parameters of systolic 120 or greater. I have asked them to notify our office if his systolic blood pressure remains at 80 or below despite this increase in midodrine, or if he is symptomatic with higher blood pressures. They will monitor his blood pressure several times daily, calling our office in approximately 2 weeks to discuss these readings as well as his symptoms on the increased dose of midodrine, sooner for any questions or concerns. His caregiver states that his sleepiness appears to be the main symptom of his hypotension; he is on several sedating medications which may be contributing as well and we discussed limiting these as much as possible. Compression stockings were advised and they were provided with a written prescription for this today. We will also obtain an echocardiogram as it does not appear as though the one his PCP ordered in July was completed; his caregiver will look into this once they return to the facility and if he has had this done already, they will notify our office at which time we can cancel this echocardiogram. Will continue to readdress this as indicated. Orders: ECG 12 lead midodrine (PROAMATINE) 10 mg tablet; Take 1 tablet (10 mg total) by mouth 3 (three) times a day before meals. Transthoracic echocardiogram (TTE) complete with PRN contrast, bubble, strain, and 3D order panel; Future Bicuspid aortic valve 08/11/2018 Assessment & Plan (12/14/2024 10:46 AM EST): Suspected bicuspid aortic valve on echocardiogram from 2018; echo from 2019 states that this is actually a tricuspid valve. We will readdress this on repeat echo as above. Orders: ECG 12 lead Transthoracic echocardiogram (TTE) complete with PRN contrast, bubble, strain, and 3D order panel; Future Celiac disease 10/29/2016 Overview (09/26/2024): [facility] note 11/10/10 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 Dillon; [facility] Endocrinology Idiopathic pancreatitis 10/29/2016 Overview (09/26/2024): [facility] 11/10/10 Internal hemorrhoid 10/29/2016 Overview (09/26/2024): 11/11/15; [facility] colonoscopy Osteoporosis 10/29/2016 Overview (09/26/2024): Dr. Dillon; [facility] Endocrine - BMD on 12/2014 with T-score -3.3 (hip) and - 3.2 (spine) Elevated lipase 12/09/2010 Encounters Date Type Department Care Team Description 04/01/2025 Telephone Adult Medicine [address] [phone] Tushar Johnson MD 03/26/2025 Telephone Adult Medicine [address] [phone] Hong Griffith MD 03/01/2025 Telephone Adult Medicine [address] [phone] Hong Griffith MD faxed order ([facility] health care provider order 02/22/25) 02/28/2025 Telephone Adult Medicine [address] [phone] Hong Griffith MD prior auth 01/24/2025 Telephone Adult Medicine [address] [phone] Rosanna Shearer, VADIM Faxed Order ([facility] Telephone Order Form - Medication Change 01/09/25) 2025 Telephone Adult Medicine [address] [phone] Rosanna Shearer, lipstick molder (Prior Authorization for Esomeprazole - CoverMyMeds) 01/08/2025 Telephone Adult Medicine [address] [phone] Rahel Phoenix, VADIM 01/08/2025 Nurse Triage Adult [address] [phone] Rahel Phoenix, RN 01/04/2025 Telephone Adult [address] [phone] Hong Griffith MD from Last 3 Months Immunizations Name Administration Dates Next Due Influenza Quadravalent, MDCK , 0.5ml, preservative free (Flucelvax) 6mo and older 08/17/2023,08/16/2022,08/12/2021,08/29,11/23/2018 Influenza trivalent, 0.5mL, preservative free (Fluarix; FluLaval; Fluzone) ages 6mo and older (Afluria) 3 years and older 08/23/2024,09/15/2015,07/20/2011 PPD Test 11/24/2010 Pfizer SARS-CoV-2 COVID-19, mRNA, LNP-S, preservative free 10/30/2021,01/19/2021,12/18/2020 Pneumococcal polysaccharide 23 valent (Pneumovax 23) 2yo and older 06/18/2018,11/11/2010 Tdap Tetanus diptheria acell ular pertussis (Boostrix; Adacel) 7yo and older 12/03/2021,11/24/2010 Surgical History Surgery Date Site/Laterality Comments OTHER SURGICAL HISTORY 11/11/15 CN:non-neoplastic rectal polyp; repeat in 10 yrs under propofol Medical History Medical History Date Comments Down syndrome Hypothyroid Celiac disease Hypogonadism in male 01/23/2020 Nonrheumatic aortic insuffic iency with aortic stenosis 03/25/2021 Osteoporosis 10/29/2016 Dr. Dillon; [facility] Endocrine - BMD on 12/2014 with T-score -3.3 (hip) and -3.2 (spine) Postural hypotension 10/30/2018 Bicuspid aortic valve 08/11/2018 Colon polyp 08/17/2023 Colonoscopy in 2 015. Singular polyp. Advised to repeat in 10 years. 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 Dillon; [facility] Endocrinology Social History Tobacco Use Types Packs/Day Years Used Date Smoking Tobacco: Never Smokeless Tobacco: Never Tobacco Cessation:Counseling Given: Not Answered Alcohol Use Standard Drinks/Week Comments No 0 (1 standard drink = 0.6 oz pur e alcohol) Sex and Gender Information Value Date Recorded Sex Assigned at Not on file Legal Sex Male 7:52 PM EST Gender Identity Not on file Sexual Orientation Not on file Obstetrics History Last Filed Vital Signs Vital Sign Reading Time Taken Comments Blood Pressure 80/60 12/14/2024 9:04 AM EST Pulse 78 12/14/2024 9:04 AM EST Temperature 36.6 ??C (97.8 ??F) 11/28/2024 9:58 AM ES T Respiratory Rate 12 11/28/2024 9:58 AM EST Oxygen Saturation 99% 12/14/2024 9:04 AM EST Inhaled Oxygen Concentration - - Weight 49.9 kg (110 lb) 12/14/2024 9:04 AM EST Height 147.3 cm (4' 10 ) 12/14/2024 9:04 AM EST Body Mass Index 22.99 12/14/2024 9:04 AM EST Plan of Treatment Upcoming Encounters Date Type Department Care Team (Late st Contact Info) Description 04/03/2025 10:00 AM EDT Office Visit Adult [address] [phone] Hong Griffith MD [address] [place] [address] 05/01/2025 4:00 PM EDT Office Visit [address] [phone] Susana Olivas PA [address] [place] [address] 05/09/2025 11:00 AM EDT Ancillary Procedure [facility] - [facility] [address] [facility] [address] [place] [phone] 06/05/2025 9:30 AM EDT Office Visit [address] [phone] Hong Griffith MD [address] [place] [address] Health Maintenance Due Date Last Done Comments Zoster Vaccines (1 of 2) 2011 Pneumococcal Vaccine: 50+ Years (2 of 2 - PCV) 06/18/2019 06/18/2018, 11/11/2010 HIV Screening 10/23/2022 Medicare Annual Wellness Visit 10/23/2022 Social Influencers of Health Screening 10/23/2022 COVID-19 Vaccine ( season) 2024 10/30/2021, 01/19/2021, 12/18/2020 Depression Screening 08/23/2025 08/23/2024 Colorectal Cancer Screening: Colonoscopy 11/11/2025 11/11/2015 Cholesterol Screening (Lipid Panel) 08/27/2029 08/27/2024, 08/27/2024 DTaP,Tdap,and Td Vaccines (3 - Td or Tdap) 12/03/2031 12/03/2021, 11/24/2010 RSV Immunization Adult Patients (1 - 1-dose 75+ series) 01/16/2036 Hepatitis C Screening Completed 01/12/2017 Pneumococcal Vaccine: Pediatrics (0 to 5 Years) and At-Risk Patients (6 to 64 Years) Aged Out 06/18/2018, 11/11/2010 No longer eligibl e based on patient's age to complete this topic Influenza Vaccine Completed 08/23/2024, , 08/16/2022, Additional history exists HIB Vaccines Aged Out No longer eligi ble based on patient's age to complete this topic HPV Vaccines Aged Out No longer eligi ble based on patient's age to complete this topic Hepatitis A Vaccines Aged Out No long er eligible based on patient's age to complete this topic Hepatitis B Vaccines Aged Out No long er eligible based on patient's age to complete this topic IPV Vaccines Aged Out No longer eligi ble based on patient's age to complete this topic MMR Vaccines Aged Out No longer eligi ble based on patient's age to complete this topic Meningococcal ACWY Vaccine Aged Out N o longer eligible based on patient's age to complete this topic Meningococcal B Vaccine Aged Out No l onger eligible based on patient's age to complete this topic RSV Immunization Patients Under 20 months Aged Out No longer eligible based on patient's age to complete this topic Varicella Vaccines Aged Out No longer eligible based on patient's age to complete this topic Procedures Procedure Name Priority Date/Time Associated Diagnosis Comments HOME HEALTH ORDER 02/18/2025 HOME HEALTH ORDER 02/18/2025 LIPID PANEL Routine 08/27/2024 DEPRESSION SCREENING Routine 08/23/2024 HEPATITIS C SCREENING Routine 01/12/2017 COLONOSCOPY Routine 11/11/2015 from Last 3 Months or Most Recently Relevant to Health Maintenance Results * Home Health Order (02/18/2025) Only the most recent of2 resultswithin the time period is included. Provider [facility] NURSING ASSESSMENTS Radha l Result * Lipid panel (08/27/2024) [facility] LDL/HDL Ratio 3 <=4 Triglycerides 85 0 - 150 mg/dL Cholesterol 161 0 - 200 mg/dL HDL 51 >=40 mg/dL LDL Cholesterol 93 0 - 100 mg/dL Blood Venous blood specimen / Unknown [facility] Provider LAB BLOOD ORDERABLES Radha l Result * Depression Screening (08/23/2024) Pathologist [facility] Depression Screening abstracted [facility] Provider HEALTH MAINTENANCE Final Result * Hepatitis C Screening (01/12/2017) Pathologist [facility] Hepatitis C Screening abstracted [facility] Provider HEALTH MAINTENANCE Final Result * Colonoscopy (11/11/2015) [facility] Colonoscopy no interpretation , abstracted Anatomical Region Laterality Modality Other [facility] Provider HEALTH MAINTENANCE Final Result from Last 3 Months or Most Recently Relevant to Health Maintenance Insurance MEDICARE MEDICAID - [place] Care Teams Drop Pit Worker Relationship Specialty Start Date End Date Hong Griffith MD [address] [place] [id number] PCP - General 10/20/10
--- OUTSIDE RECORDS SUMMARY | 2025-04-01 12:55 | XMS_ITS | Encounter Summary ---
Author Organization [facility] Address [id number] [place] [phone] Care Team Providers Care Machine Operator General Name Role Phone Hong Griffith MD Primary Care Provider Encounter Details Date Type Department Care Team (Late st Contact Info) Description 04/01/2025 Telephone Adult Medicine [facility] [address] [place], [place] [phone] Tushar Johnson MD [address] [place], [place] Social History Tobacco Use Types Packs/Day Years [...] as of this encounter Progress Notes * Tushar Johnson MD - 04/01/2025 8:49 AM EDT Received message as the on-call provider on 03/30 from the patient's nursing needle process felt goods supervisor. Patient has had a rash for a week. She asked if the patient could put anything on the rash. She statesthe patient keeps pointing towards it but says it is not itchy. The rash has been there for a week,started out on the abdominal area for where it has improved but now it is present on the legs as well. Advised the patient that I do not have any specific recommendation at this time as I have not seen the patient or evaluated this rash before. Advised on signs and symptoms that should prompt him to seek emergency care. Advised to follow-up with PCP. Patient has an appointment in 2 days with his PCP. Will send a message to the PCP as well. documented in this encounter Plan of Treatment Upcoming Encounters Date Type Department Care Team (Late st Contact Info) Description 04/03/2025 10:00 AM EDT Office Visit [address] [phone] Hong Griffith MD [address] [place] [address] 05/01/2025 4:00 PM EDT Office Visit [address] [phone] Susana Olivas PA [address] [place] [address] 05/09/2025 11:00 AM EDT Ancillary Procedure [facility] - [address] [place] [address] 06/05/2025 9:30 AM EDT Office Visit [address] [phone] Hong Griffith MD [address] [place], [place] [phone] documented as of this encounter Visit Diagnoses Not on filedocumented in this encounter Care Teams Machine Operator General Relationship Specialty Start Date End Date Hong Griffith MD [address] [place] [address] [phone] PCP - General 10/20/10 documented as of this encounter
--- OUTSIDE RECORDS SUMMARY | 2025-04-01 12:55 | XMS_ITS | Encounter Summary ---
Author Organization [facility] Address [id number] [place] [id number] Care Team Providers Care Door Trimmer Name Role Phone Hong Griffith MD Primary Care Provider [phone] Reason for Visit * Reason Onset Date Comments prior auth 02/28/2025 Encounter Details Date Type Department Care Team (Late st Contact Info) Description 02/28/2025 Telephone Adult Medicine [address] [phone] Hong Griffith MD [address] [place] [address] prior auth Social History Tobacco Use Types Packs/Day Years [...] Progress Notes * KRISTEL Olmedo - 03/29/2025 2:24 PM EDT Duplicate encounter/request * Kymberly Fierro MA - 03/28/2025 8:32 AM EDT Prior Authorization Request for Esomeprazole 20 mg was Denied, do you want to appeal ? Plan number or fax in request to . .Please Reply Back to [facility] Name Kymberly Fierro [facility] Prior Ext: [phone] * Senait Brown - 02/28/2025 1:36 PM EDT Prior Authorization for Medication-do not complete and send this encounter unless you have the fax from the pharmacy. Is this a Cover My Meds request: Yes -- Alcazar Code [id number] Name of Medication Esomerprazole Magnesium Dose of Medication 20 mg How does patient take this med? Take on capsule by mouth one time each day before breakfast What Pharmacy did the fax come from: [facility] fax #: [phone] documented in this encounter Plan of Treatment Upcoming Encounters Date Type Department Care Team (Late st Contact Info) Description 04/03/2025 10:00 AM EDT Office Visit [facility] Medicine [address] [phone] Hong Griffith MD [address] [place] [address] 05/01/2025 4:00 PM EDT Office Visit [facility] Medicine [address] [phone] Susana Olivas PA [address] [place] [address] 05/09/2025 11:00 AM EDT Ancillary Procedure [facility] [address] [place] [address] 06/05/2025 9:30 AM EDT Office Visit Adult Medicine [address] [phone] Hong Griffith MD [address] [place] [address] documented as of this encounter Visit Diagnoses Not on filedocumented in this encounter Care Teams Door Trimmer Relationship Specialty Start Date End Date Hong Griffith MD [address] [place] [id number] PCP - General 10/20/10 documented as of this encounter
--- OUTSIDE RECORDS SUMMARY | 2025-04-01 12:55 | XMS_ITS | Encounter Summary ---
Author Organization [facility] Address [address] [place] [id number] Care Team Providers Care Absorption Plant Operator Helper Name Role Phone Hong Griffith MD Primary Care Provider [phone] Reason for Visit * Reason Onset Date Comments faxed order 03/01/2025 [facility] health care provider order 02/22/25 Encounter Details Date Type Department Care Team ([facility] st Contact Info) Description 03/01/2025 Telephone Adult Medicine [address] [phone] Hong Griffith MD [address] [place] [phone] faxed order ([facility] health care provider order 02/22/25) Social History Tobacco Use Types Packs/Day Years [...] as of this encounter Progress Notes * Senait Brown - 03/01/2025 8:45 AM EDT [facility] health care provider order 02/22/25 received please sign and sent to [phone] documented in this encounter Plan of Treatment Upcoming Encounters Date Type Department Care Team (Late st Contact Info) Description 04/03/2025 10:00 AM EDT Office Visit Adult Medicine [address] [phone] Hong Griffith MD [address] [place] [address] 05/01/2025 4:00 PM EDT Office Visit Adult Medicine [address] [phone] Susana Olivas PA [address] [place] [address] 05/09/2025 11:00 AM EDT Ancillary Procedure [facility] [address] [place] [id number] 06/05/2025 9:30 AM EDT Office Visit Adult Medicine [address] [phone] Hong Griffith MD [address] [place] [address] documented as of this encounter Visit Diagnoses Not on filedocumented in this encounter Care Teams Absorption Plant Operator Helper Relationship Specialty Start Date End Date Hong Griffith MD [address] [place] [address] PCP - General 10/20/10 documented as of this encounter
--- NOTE | 2025-04-01 13:12 | MHC.OFFWIV ---
Intake Vital Signs 04/01/25 13:17 Weight 110 lb BP 98/70 Blood Pressure Location Rt brachial Position Sitting Pulse 57 Pulse Source Pulse Oximeter Pulse Oximetry (%) 97 Oxygen Delivery Method Room Air Intake Visit Reasons: EP spider bites? 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 - The lesions were first observed 6 days ago on the neck, resembling mosquito bites, then observed on the stomach area and the left arm. - The bites increased in number over a few days and then began resolving on their own with no intervention. 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 - The patient, being non-verbal, did not report any itching or discomfort and has been acting at his baseline. - She has showed me pictures of what the bites looked like originally and they seem to be almost completely resolved today. Physical Exam General: Cooperative, healthy appearing, comfortable, no acute distress and well developed Orientation: Patient oriented x3 Limitations: No limitations Head: Normal to inspection Ears: Hearing grossly normal bilaterally Nose: Normal External nose present Face and sinus: Normal facial exam Eyes: Appearance normal, both eyes and all related structures Neck: Normal visual inspection and Yes full ROM, noted small resolving insect bite pat on the back of the neck Respiratory: Normal respiratory effort and able to speak in complete sentences. Skin: pink pinpoint areas with no signs of infection noted, no warmth, no vesicles, no drainage, no papules on posterior neck, right upper medial arm, right lower abdomen and BL distal right LE Extremities: Normal to inspection [facility] Medical History Alzheimer's dementia Down syndrome Celiac disease Social History Patient Tobacco Use Status: Never used Tobacco Advance Directives Date on File: 11/08/24 service: No Review of Systems Const All systems reviewed & are unremarkable except as noted in HPI and below Physical Exam Vital Signs: Last Vital Signs Pulse 57 04/01/25 13:17 BP 98/70 04/01/25 13:17 Pulse Ox 97 04/01/25 13:17 Oxygen Delivery Method Room Air 04/01/25 13:17 Assessment & Plan Assessment & Plan (1) Insect bites: Code(s): W57.XXXA - Bitten or stung by nonvenomous insect and other nonvenomous arthropods, initial encounter Qualifiers: Encounter type: initial encounter Site of insect bite: abdominal wall Qualified Code(s): S30.861A - Insect bite (nonvenomous) of abdominal wall, initial encounter; W57.XXXA - Bitten or stung by nonvenomous insect and other nonvenomous arthropods, initial encounter Plan: The patient presented with insect bites, which were resolving without complications. Since the lesions are resolving and not causing any discomfort, no acute intervention is necessary. The patient should be monitored for new or worsening bite pat or fevers. If symptoms become bothersome or if additional bites occur, the use of antihistamines such as Benadryl should be considered. In future occurrences, topical Bacitracin could be used if necessary. Current signs do not suggest any need for further investigation or immediate treatment at this time. Patient was informed and verbally consented to the use of an ambient scribe for clinic note documentation during this visit. Coding Level of Care Code New Pt Level 3 (56979) Diagnoses Insect bite of abdominal wall, initial encounter S30.861A; W57.XXXA Encounter type: initial encounter Site of insect bite: abdominal wall
[2025-04-01 13:17] VITALS: BP 98/70; PULSE 57; O2SAT 97
== END 2025-04-01 14:26 | disposition home or self-care (01) ==
PROVIDERS: PCP Internal Medicine; Visit Provider Physician Assistant
DX: S30.861A Insect bite (nonvenomous) of abdominal wall, initial encounter (principal); W57.XXXA Bitten or stung by nonvenomous insect and other nonvenomous arthropods, initial encounter

== ENCOUNTER → 2025-04-01 12:35 | Outpatient (BNVA) | payer MEDICARE, MEDICAID, SELFPAY | PROVIDERS: PCP Internal Medicine; Visit Provider Physician Assistant | DX: S30.861A Insect bite (nonvenomous) of abdominal wall, initial encounter (principal); W57.XXXA Bitten or stung by nonvenomous insect and other nonvenomous arthropods, initial encounter | CPT/HCPCS: 99202 ==

== ENCOUNTER 2025-08-13 19:55 | Emergency (ER) | payer MEDICARE, MEDICAID, SELFPAY ==
--- NOTE | 2025-08-13 | ECG_ITS ---
Test Reason : FALL Blood Pressure : */* mmHG Vent. Rate : 65 BPM Atrial Rate : 65 BPM P-R Int : 126 ms QRS Dur : 80 ms QT Int : 438 ms P-R-T Axes : 53 57 50 degrees QTcB Int : 455 ms Normal sinus rhythm Normal ECG When compared with ECG of 08-Nov-2024 15:12, No significant change was found Referred By: Generic ED Physician Electronically Signed By: PIETRO MIMS
--- NOTE | ~2025-08-13 | XR_ITS ---
CLINICAL HISTORY: cough PNA 1 view chest x-ray Comparison: None Findings: Two images were obtained. Lungs are clear without acute infiltrates. No pneumothorax. Heart size normal. No acute bony abnormalities. Impression: No acute processes This document has been electronically signed by: Brandon Piper MD on 08/13/2025 22:40:32
--- NOTE | ~2025-08-13 | CT_ITS ---
CLINICAL HISTORY: trauma CT head without contrast Comparison: 11/03/2022 Findings: No intracranial mass, midline shift, hydrocephalus, or acute hemorrhage. Mild chronic ischemic white matter disease with mild volume loss. No acute process in sinuses or mastoids. No acute bony abnormality. Impression: No acute intracranial process This document has been electronically signed by: Brandon Piper MD on 08/14/2025 00:04:33
[2025-08-13 20:07] VITALS: BP 110/56; BP 126/77; PULSE 61; PULSE 74; RESP 16; TEMP 36.5; O2SAT 100; O2SAT 94; BMI 23.0
--- OUTSIDE RECORDS SUMMARY | 2025-08-13 20:18 | XMS_ITS | Clinical Summary ---
Author Organization [facility] Address [address] [place] [address] Care Team Providers Care Mortgage Clerk Name Role Phone Hong Griffith MD Primary Care Provider [phone] Allergies Active Allergy Reactions Criticality Noted Date [...] 55 07/06/2022 10:21 AM EDT Temperature 36.1 C (97 F) 07/06/2022 10:21 AM EDT Respiratory Rate - - Oxygen Saturation 93% 07/06/2022 10: 21 AM EDT Inhaled Oxygen Concentration - - Weight 49.4 kg (109 lb) 07/06/2022 10:2 1 AM EDT Reported by dye lab technician Height - - Body Mass Index - - Plan of Treatment Health Maintenance Due Date Last Done Comments Hepatitis C Screening 1961 Depression Screening 1973 Preventative Health Evaluation 1979 Colon Cancer Screening (Colonoscopy) 2006 Shingrix-Zoster Vaccine (1 of 2) 2011 COVID-19 Vaccine ( season) 2025 10/30/2021, 01/19/2021, 12/18/2020 Influenza Vaccine (#1) 2025 , 08/29/2020, 08/23/2019, Additional history exists Pneumococcal [...] age to complete this topic Care Teams Mortgage Clerk Relationship Specialty Start Date End Date Hong Griffith MD PCP - General Internal Medicine 03/24/22
--- OUTSIDE RECORDS SUMMARY | 2025-08-13 20:18 | XMS_ITS | Clinical Summary ---
Author Organization [facility] Address [address] [id number] Phone Care Team Providers Care Handkerchief Folder Name Role Phone Hong Griffith MD Primary Care Provider + Allergies Active Allergy Reactions Criticality Noted Date Comments Clonidine 04/13/2023 Unknown RXN Gluten 07/11/2025 Gluten Protein 06/15/2018 Iodinated Contrast Media 06/15/2018 Wheat 06/15/2018 Medications multivitamin (MULTIPLE VITAMINS ORAL) Activ e calcitriol (ROCALTROL) 0.5 MCG capsule Take 0.5 mcg by mouth. Active docusate sodium (COLACE) 100 MG capsule Take 100 mg by mouth. Active acetaminophen (TYLENOL) 325 mg tablet Take 325 mg by mouth. Active nystatin ointment Active menthol-zinc oxide (CALMOSEPTINE) 0.44-20.6 % Oint Active alendronate (FOSAMAX) 70 MG tablet Take 250 mg by mouth. Active risperiDONE (RISPERDAL) 1 MG tablet Take 1 tablet (1 mg total) by mouth every evening. 07/27/2018 Active risperiDONE (RISPERDAL) 0.5 MG tablet 1 tablet (0.5 mg total) every morning. 07/27/2018 Active fluvoxaMINE (LUVOX CR) 100 mg 24hr capsule Take 2 capsules (200 mg total) by mouth daily. 07/27/2018 Active DUOCAL PowdIndications :Trisomy 21,Edentulous Take 80 g by mouth daily. 2400 g 11 11/17/2023 Active levothyroxine (SYNTHROID, LEVOTHROID) 150 MCG tablet Take 1 tablet (150 mcg total) by mouth every morning. 30 tablet 1 05/10/2024 Active Active Problems Problem Noted Date Diagnosed Date History of syncope 12/14/2024 Hypoparathyroidism 05/10/2024 Mild Alzheimer's dementia 05/10/2024 Functional urinary incontinence 12/03/2021 Overview (07/11/2025): 09/28/21 Davion Mahmood MD Aortic insufficiency 03/25/2021 Hypogonadism in male 01/23/2020 Eczema 10/18/2019 Seborrheic dermatitis of scalp 10/18/2019 Pressure injury of back, stage 2 10/18/2019 Prolonged Q-T interval on ECG 03/01/2019 Overview (03/01/2019): In setting of bradycardia and hospitalization in 2019, resolved once Risperdal discontinued Edentulous 03/01/2019 Overview (03/01/2019): Extractions in 1980 due to periodontal disease Osteoporosis 03/01/2019 Overview (03/01/2019): CT scan shows sclerotic changes in L4, compression fractures in L3-L4, Esophageal stricture 03/01/2019 Overview (03/01/2019): Cervical, per MBS 2015 Hemorrhoid 03/01/2019 Overview (03/01/2019): Hemorrhoids and polyps removed during screening in 2014 Recurrent acute pancreatitis 12/08/2018 Bicuspid aortic valve 08/11/2018 Down syndrome 07/27/2018 Other specified hypothyroidism 07/27/2018 Overview (03/01/2019): Followed by endocrinology Dry skin 07/27/2018 Postural hypotension 07/27/2018 Overview (03/01/2019): Previously on Florinef, discontinued due to hypokalemia, now on midodrine by copy operator Dr. Montenegro. Echo showed good LV function Unresponsive episode 07/27/2018 Sepsis 06/15/2018 Celiac disease 10/29/2016 Overview (07/11/2025): On gluten free diet [facility] note 11/10/10 Encounters Date Type Department Care Team Description 07/11/2025 2:40 PM EDT - 07/11/2025 11:59 PM EDT Hospital Encounter [facility] PEDI BLOOD LAB VIRTUAL DEPARTMENT [address], [address], [address] [place] [address] Ruiz Alcala MD, MPH Discharge Disposition: Home or Self Care 07/11/2025 2:00 PM EDT Office Visit [facility] Medical Genetics [address], [address] [place] [address] Ruiz Alcala MD, MPH Mild Alzheimer's dementia without behavioral disturbance, psychotic disturbance, mood disturbance, or anxiety, unspecified timing of dementia onset (Primary Dx); Eczema, unspecified type; Edentulous; Gluten enteropathy; Idiopathic hypotension; Osteoporosis, unspecified osteoporosis type, unspecified pathological fracture presence; Other specified hypothyroidism; Seborrheic dermatitis of scalp; Trisomy 21; Bicuspid aortic valve; Aortic valve insufficiency, etiology of cardiac valve disease unspecified; Functional urinary incontinence; Hypogonadism in male; Recurrent acute pancreatitis from Last 3 Months Immunizations Immunization Administration Dates Next Due COVID-19 (Pre-09/05) Pfizer Vaccine, mRNA, PF 10/30/2021,01/19/2021,12/18/2020 INFLUENZA, SPLIT VIRUS, TRIV ALENT W/ PRESERVATIVE IM 09/15/2015,07/20/2011,10/02/2010 Influenza Quadrivalent MDCK Preservative Free IM 08/17/2023,08/16/2022,08/29/2020,11/23 Influenza Quadrivalent MDCK w/Preservative IM 08/23/2019 Influenza, Unspecified Formulation 08/23/2024,,07/20/2011 PPD Test 11/24/2010 Pneumococcal polysaccharide PPSV23 06/18/2018, Tdap 12/03/2021,11/24/2010 Social History Tobacco Use Types Packs/Day Years Used Date Smoking Tobacco: Never Smokeless Tobacco: Never Alcohol Use Standard Drinks/Week Comments Never 0 (1 standard drink = 0.6 oz pur e alcohol) Education Answer Date Recorded Are you interested in more education? Not on yogesh e 03/11/2023 Are you concerned about learning? Not on file 03/11/2023 No 03/11/2023 No 03/11/2023 Digital Access Answer Date Recorded No 04/08/2023 No 04/08/2023 Reliable internet access at home? Not on file 04/08/2023 Device with a working camera? Not on file Sex and Gender Information Value Date Recorded Sex Assigned at Male 08/02/2024 11:00 AM EDT Legal Sex Male 11:57 AM EDT Gender Identity Male 08/02/2024 11:00 AM EDT Sexual Orientation Not on file Last Filed Vital Signs Vital Sign Reading Time Taken Comments Blood Pressure 94/59 07/11/2025 1:30 PM EDT Pulse 87 07/11/2025 1:30 PM EDT Temperature 36.1 C (96.9 F) 07/11/2025 1:30 PM EDT Respiratory Rate 14 08/02/2024 2:30 PM EDT Oxygen Saturation 97% 07/11/2025 1:30 PM EDT Inhaled Oxygen Concentration - - Weight 49 kg (108 lb) 07/11/2025 1:30 PM EDT Height 149.3 cm (4' 10.78 ) 07/11/2025 1:30 PM E DT Body Mass Index 21.98 07/11/2025 1:30 PM EDT Plan of Treatment Upcoming Encounters Date Type Department Care Team (Late st Contact Info) Description 07/10/2026 1:00 PM EDT Office Visit [facility] Medical Genetics [address] [place] [address], [address] [place] [address] Ruiz Alcala MD, MPH [address] [facility] [place] [address] [email or web address] 07/10/2026 1:00 PM EDT Social Work [facility] Social Service Department [address] [place] [id number] Ruiz Alcala MD, MPH [address] [facility] [place] [address] [email or web address] Najma Solano [address] [place] [phone] [email or web address] 07/10/2026 2:00 PM EDT Nutrition [facility] Medical Genetics [address], [address] [place] [address] Ruiz Alcala MD, MPH [address] [facility] [place] [address] [email or web address] Lopez LDN [address] [place] [id number] [email or web address] Maintenance Due Date Last Done Comments DEPRESSION SCREENING 1973 HEPATITIS C SCREENING 1979 HIV ONE-TIME SCREENING (18-65 YEARS) 1979 COLOGUARD 2006 COLONOSCOPY 2006 COLORECTAL CANCER SCREENING 2006 FIT TEST 2006 FOBT 2006 SIGMOIDOSCOPY 2006 VIRTUAL COLONOSCOPY 2006 ZOSTER VACCINES (1 of 2) 2011 PNEUMOCOCCAL VACCINES (50+ years) (2 of 2 - PCV) 06/18/2019 06/18/2018, 11/11/2010 INFLUENZA VACCINE (#1) 2025 , 08/17/2023, 08/16/2022, Additional history exists COVID-19 VACCINE ( - 2024- season) 2025 10/30/2021, 01/19/2021, 12/18/2020 TSH LEVEL 07/11/2026 07/11/2025, 05/15, 11/22/2024, Additional history exists LIPID PANEL 08/27/2029 08/27/2024 Adult Td,Tdap Booster 12/03/2031 12/03/2021, 011 RSV VACCINE (1 - 1-dose 75+ series) 01/16/2036 SMOKING STATUS SCREENING (Once After 26 Yrs) Completed 10/18/2019 HEPATITIS A VACCINES Aged Out No long er eligible based on patient's age to complete this topic HIB VACCINES Aged Out No longer eligi ble based on patient's age to complete this topic MENINGOCOCCAL VACCINES (ACWY) Aged Out No longer eligible based on patient's age to complete this topic MENINGOCOCCAL VACCINES (B) Aged Out N o longer eligible based on patient's age to complete this topic Medical Devices Not on file Procedures Procedure Name Priority Date/Time Associated Diagnosis Comments CELIAC INTERPRETATION Routine 07/11/2025 2:45 PM EDT TISSUE TRANSGLUTAMINASE IGA Routine 07/11/2025 2:45 PM EDT Gluten enteropathy IRON AND IRON BINDING CAPACITY Routine 07/11/2025 2:45 PM EDT Trisomy 21 C-REACTIVE PROTEIN Routine 07/11/2025 2: 45 PM EDT Trisomy 21 FERRITIN Routine 07/11/2025 2:45 PM EDT Trisomy 21 CBC Routine 07/11/2025 2:45 PM EDT Trisomy 21 TSH Routine 07/11/2025 2:45 PM EDT Other specified hypothyroidism Trisomy 21 Pneumococcus IgG antibody (23 serotypes) Routine 07/11/2025 2:45 PM EDT Trisomy 21 from Last 3 Months Results * Celiac interpretation (07/11/2025 2:45 PM EDT) CELIAC INTERPRETATION Serologic markers for celiac disease are useful in: [facility] Comment: 1. Supporting the diagnosis of celiac disease 2. Screening first-degree relatives of patients with celiac disease 3. Monitoring the adherence and response to a gluten-free diet. INTERPRETATION OF POSITIVE TESTS: IgA and IgG antibodies to tTG (human recombinant tissue transglutaminase) the antigens used in this RUTH method have a sensitivity of 95% and a specificity of 98%. This RUTH assay matches the sensitivity and specificity of the endomysial antibody assay (CLAUDETTE), detected by indirect immunoflurescence. The RUTH is less catalyst operator gasoline dependent than the CLAUDETTE. IgA and IgG antibodies to human gliadin have a sensitivity of about 85% and specificity of only about 80-85%. A decrease in antibody titer (half life 6-8 weeks) compared to pretreatment levels has been utilized to monitor adherence and response to a gluten free diet. IgG antibody test to tTG and gliadin are performed in those with IgA deficiency and suspected celiac disease. 07/11/2025 2:45 PM EDT 07/11/2025 6:24 PM EDT Ruiz Alcala MD, MPH LAB BLOOD ORDERABLES Final Result Performing Organization Address [facility] [place] [address] * Iron and iron binding capacity (07/11/2025 2:45 PM EDT) IRON 77 45 - 160 ug/dL [facility] IRON BINDING CAPACITY 276 230 - 404 ug/dL [facility] TRANSFERRIN SATURAT. 28 14 - 50 % [facility] 07/11/2025 2:45 PM EDT 07/11/2025 6:25 PM EDT Ruiz Alcala MD, MPH LAB BLOOD ORDERABLES Final Result Performing Organization Address [facility] Co de Phone Number [address] [address] * Pneumococcus IgG antibody (23 serotypes) (07/11/2025 2:45 PM EDT) Serotype 1 (1) 12.1 >=1.0 mcg/mL [facility] Serotype 2 (2) 0.4 >=1.0 mcg/mL [facility] Serotype 3 (3) 0.2 >=1.0 mcg/mL [facility] Serotype 4 (4) 0.3 >=1.0 mcg/mL [facility] Serotype 5 (5) 0.8 >=1.0 mcg/mL [facility] Serotype 8 (8) 2.2 >=1.0 mcg/mL [facility] Serotype 9N (9) 0.7 >=1.0 mcg/mL [facility] Serotype 12F (12) 0.3 >=1.0 mcg/mL [facility] Serotype 14 (14) 24.6 >=1.0 mcg/mL [facility] Serotype 17F (17) 1.8 >=1.0 mcg/mL [facility] Serotype 19F (19) 1.4 >=1.0 mcg/mL [facility] Serotype 20 (20) 2.0 >=1.0 mcg/mL [facility] Serotype 22F (22) 0.8 >=1.0 mcg/mL [facility] Serotype 23F (23) 0.4 >=1.0 mcg/mL [facility] Serotype 6B (26) 0.6 >=1.0 mcg/mL [facility] Serotype 10A (34) 1.6 >=1.0 mcg/mL [facility] Serotype 11A (43) 1.8 >=1.0 mcg/mL [facility] Serotype 7F (51) 0.5 >=1.0 mcg/mL [facility] Serotype 18C (56) 0.9 >=1.0 mcg/mL [facility] Serotype 19A (57) 2.2 >=1.0 mcg/mL [facility] Serotype 9V (68) 0.2 >=1.0 mcg/mL [facility] Serotype 33F (70) 3.1 >=1.0 mcg/mL [facility] Interpretation SEE NOTE [facility] Comment: (NOTE) Evaluation of the immune response following pneumococcal vaccination can be assessed by measuring serotype-specific Streptococcus pneumonia IgG antibodies. Either of the following conditions is consistent with a normal response to Streptococcus pneumonia vaccination: 1. When comparing pre and post-vaccination samples, antibody concentrations increased by at least 2-fold for either >50% of serotypes in children <6 years of age or >70% of serotypes for individuals >6 years of age. 2. In either a pre- or post-vaccination sample, antibody concentrations >=1.0 mcg/mL for either >50% of serotypes for children <6 years of age or >70% of serotypes for individuals >6 years of age. Results >=1.0 mcg/mL or those showing a >=2-fold change are consistent with an immune response, but are not necessarily sufficient to provide protection against infection. ADDITIONAL INFORMATION This test was developed and its performance characteristics determined by [facility] in a manner consistent with CLIA requirements. This test has not been cleared or approved by the U.S. Food and Drug Administration. 07/11/2025 2:45 PM EDT 07/11/2025 6:24 PM EDT Ruiz Alcala MD, MPH LAB BLOOD ORDERABLES Final Result [facility] [place] [address] * (ABNORMAL) Tissue transglutaminase IgA (07/11/2025 2:45 PM EDT) ANTI TTG IGA AB 10.25(H) 0.00 - 3.99 U/mL [facility] Comment:Positive 07/11/2025 2:45 PM EDT 07/11/2025 6:24 PM EDT Ruiz Alcala MD, MPH LAB BLOOD ORDERABLES Final Result Performing Organization Address City/[facility]/ZIP Co de Phone Number [address] [address] * (ABNORMAL) CBC (07/11/2025 2:45 PM EDT) WBC 5.67 4.00 - 11.00 K/uL [facility] RBC 3.60(L) 4.50 - 5.90 M/uL [facility] HGB 12.8(L) 13.5 - 17.5 g/dL [facility] HCT 38.0(L) 41.0 - 53.0 % [facility] PLT 201 150 - 450 K/uL [facility] MCV 105.6(H) 80.0 - 100.0 fL [facility] MCH 35.6(H) 27.0 - 31.0 pg [facility] MCHC 33.7 32.0 - 36.0 g/dL [facility] RDW 14.6(H) 11.5 - 14.5 % [facility] MPV 10.5 8.4 - 12.0 fL [facility] NRBC 0.00 0.00 /100 WBCs [facility] ABSOLUTE NRBC 0.00 0.00 K/uL [facility] 07/11/2025 2:45 PM EDT 07/11/2025 6:25 PM EDT Ruiz Alcala MD, MPH LAB BLOOD ORDERABLES Final Result Performing Organization Address City/[facility] Co de Phone Number [address] [address] * C-Reactive Protein (07/11/2025 2:45 PM EDT) Pathologist [facility] C REACTIVE PROTEIN 1.8 <8.0 mg/L [facility] Comment:This reference range is for the evaluation of inflammation. Order High Sensitivity CRP for cardiac risk status evaluation. 07/11/2025 2:45 PM EDT 07/11/2025 6:25 PM EDT us Ruiz Alcala MD, MPH LAB BLOOD ORDERABLES Final Result Performing Organization Address City/[facility]/ZIP Co de Phone Number [address] [address] * (ABNORMAL) TSH (07/11/2025 2:45 PM EDT) TSH 6.52(H) 0.40 - 5.00 uIU/mL [facility] 07/11/2025 2:45 PM EDT 07/11/2025 6:25 PM EDT us Ruiz Alcala MD, MPH LAB BLOOD ORDERABLES Final Result [facility] [address] [place] [address] * Ferritin (07/11/2025 2:45 PM EDT) FERRITIN 219 20 - 300 ug/L [facility] 07/11/2025 2:45 PM EDT 07/11/2025 6:25 PM EDT us Ruiz Alcala MD, MPH LAB BLOOD ORDERABLES Final Result [facility] [address] [place] [address] from Last 3 Months Insurance MEDICARE PART A & B [facility] MEDICARE PART A & B [place] A & B [id number] [place], [place] [address]HEALTH MEDICARE PART A & [place] [facility]ICARE PART A & [facility] [place] [facility] [place] Advance Directives For more information, please contact: [phone] (9AM - 5PM [place], Tuesday-Tuesday) Documents on File Type Date Recorded Patient Skein Inspector Expl anation Legal Guardianship 04/07/2023 7:43 PM [facility] Care Teams Handkerchief Folder Relationship Specialty Start Date End Date Hong Griffith MD [address] [place] [id number] PCP - General Internal Medicine 05/25/18 Additional Source Comments The information contained in this document represents components of the legal health record. It is not the complete legal health record.[facility]
--- OUTSIDE RECORDS SUMMARY | 2025-08-13 20:18 | XMS_ITS | Clinical Summary ---
Author Organization [address] [place] [address] [place] [address] Phone Care Team Providers Care Curator [employer] Name Role Phone Hong Griffith MD Primary Care Provider [phone] Allergies Active Allergy Reactions Criticality Noted Date Comments Clonidine 04/13/2023 Unknown RXN Gluten 01/20/2011 Iodinated Contrast Media 12/14/2024 Medications divalproex (DEPAKOTE) [address] tablet Take 1 tablet (250 mg total) by mouth 2 (two) times a day. 022 Active fluvoxaMINE (LUVOX) 100 mg tablet Take 0.5 tablets (50 mg total) by mouth 2 (two) times a day. 020 Active QUEtiapine (SEROquel) 25 mg tablet Take 3 tablets (75 mg total) by mouth 2 (two) times a day. 022 Active ketoconazole (NIZORAL) 2 % cream Apply topically 2 (two) times a day. Active FERROUS GLUCONATE ORAL Take by mouth. Active menthol-zinc oxide (Calmoseptine) 0.44-20.6 % ointment Apply 1 Application topically 2 (two) times a day if needed for irritation. 05/26/2 022 Active nystatin (MYCOSTATIN) cream 024 Active testosterone 1.62 % (20.25 mg/1.25 gram) gel in packet 3 times a week A ctive caloric supplement (DUOCAL ORAL) Take by mouth. A ctive calcium carbonate-vit D3-min 600 mg-10 mcg (400 unit) tablet Take 1 tablet by mouth 2 (two) times a day. At 12 pm and 8 pm 60 tablet 5 025 Active multivitamin (Multiple Vitamins) tablet Take 1 tablet by mouth 1 (one) time each day. 90 tablet 1 025 Active mirtazapine (REMERON) 7.5 mg tablet TAKE 1 TABLET BY MOUTH EVERY NIGHT AT BEDTIME 90 tablet 1 025 Active polyethylene glycol (MIRALAX) 17 gram packetIndicatio ns:Chronic constipation Take 17 g by mouth 2 (two) times a day. 3060 g 3 025 2025 Active lactulose (CHRONULAC) solutionIndicat ions:Chronic constipation Take 30 mL (20 g total) by mouth 2 (two) times a day. 5400 mL 025 2024 Active tamsulosin (FLOMAX) 0.4 mg 24 hr capsule Take 1 capsule (0.4 mg total) by mouth 1 (one) time each day. at bedtime 90 capsule 1 025 Active Tab-A-Tho Multivitamin w-iron 18-400 mg-mcg tablet tablet TAKE 1 TABLET BY MOUTH EVERY NIGHT AT BEDTIME 28 tablet 5 025 Active calcitrioL (ROCALTROL) 0.5 mcg capsule TAKE 1 CAPSULE BY MOUTH DAILY 28 capsule 5 025 Active calcium carbonate-vitam in D 600 mg-10 mcg (400 unit) per tablet TAKE 1 TABLET BY MOUTH 2 (TWO) TIMES A DAY AT 12 PM. AND 8 PM. 60 tablet 5 025 Active midodrine (PROAMATINE) 10 mg tabletIndicatio ns:Postural hypotension,His tory of syncope TAKE 1 TABLET BY MOUTH THREE TIMES A DAY BEFORE MEALS 84 tablet 5 025 Active LORazepam (ATIVAN) 1 mg tablet TAKE 1 TABLET BY MOUTH NEEDED FOR ANXIETY, TAKE 1 HOUR BY MOUTH PRIOR TO APPOINTMENT 10 tablet 025 Active acetaminophen (TYLENOL) 325 mg tablet Take 1 tablet (325 mg total) by mouth every 4 (four) hours if needed for mild pain (fever >100 F). Tylenol 325 mg every 4 hours as needed for headaches, body aches and fever greater than 100 90 tablet 1 Active zinc oxide (BALMEX) 11.3 % cream cream Apply 1 Squirt topically at bedtime. After bathing 60 g 1 025 Active bacitracin (bacitracin zinc) 500 unit/gram ointment Apply a thin layer topically 3 times daily as needed for minor cuts, scrapes and abrasions 120 g 1 025 Active bisacodyL (Dulcolax, bisacodyl,) 10 mg suppository Insert 1 suppository (10 mg total) into the rectum 1 (one) time each day if needed for constipation (constipation) for up to 1 dose. 12 suppository Active esomeprazole (NexIUM) [address] capsule TAKE 1 CAPSULE BY MOUTH EVERY MORNING BEFORE BREAKFAST 30 capsule 2 025 Active docusate sodium (COLACE) 100 mg capsuleIndicati ons:Chronic constipation TAKE 1 CAPSULE BY MOUTH TWICE A DAY 56 capsule 2 Active levothyroxine (SYNTHROID, LEVOTHROID) 112 mcg tablet Take 1 tablet (112 mcg total) by mouth 1 (one) time each day before breakfast. And 2 tabs on Saturdays and sundays 38 tablet 5 025 Active bacitracin (bacitracin zinc) 500 unit/gram ointment Apply a thin layer topically 3 times daily as needed for minor cuts, scrapes and abrasions 2024 Discontinued(R eorder) LORazepam (ATIVAN) 1 mg tablet TAKE 1 TABLET BY MOUTH NEEDED FOR ANXIETY, TAKE 1 HOUR BY MOUTH PRIOR TO APPOINTMENT 024 2024 Discontinued zinc oxide (BALMEX) 11.3 % cream cream Apply 1 Squirt topically at bedtime. After bathing 024 2024 Discontinued(R eorder) acetaminophen (TYLENOL) 325 mg tablet Take 1 tablet (325 mg total) by mouth every 4 (four) hours if needed for mild pain (fever >100 F). Tylenol 325 mg every 4 hours as needed for headaches, body aches and fever greater than 100 90 tablet 1 025 2024 Discontinued(R eorder) docusate sodium (COLACE) 100 mg capsuleIndicati ons:Chronic constipation Take 1 capsule (100 mg total) by mouth 3 (three) times a day. 270 each 3 025 2024 Discontinued levothyroxine (SYNTHROID, LEVOTHROID) 112 mcg tablet Take 1 tablet (112 mcg total) by mouth 1 (one) time each day before breakfast. And 2 tabs on sundays 34 tablet 5 025 2024 Discontinued(R eorder) esomeprazole (NexIUM) [address] capsule TAKE 1 CAPSULE BY MOUTH EVERY MORNING BEFORE BREAKFAST 30 capsule 5 025 2024 Discontinued Hospital, Clinic, or Other Facility Administered Medication Ordered Dose Route Frequency Start Date End Date Status menthol-zinc oxide (CALMOSEPTINE) 0.44-20.6 % ointment 1 ApplicationIndication s:Rash 1 Application TP 4 times daily PRN 07/30/2025 Acti ve Active Problems Problem Noted Date Diagnosed Date [...] panel; Future Celiac disease 10/29/2016 Overview (09/26/2024): [facility] note 11/10/10 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 Dillon; [facility] Endocrine - BMD on 12/2014 with T-score -3.3 (hip) and - 3.2 (spine) Elevated lipase 12/09/2010 Encounters Date Type Department Care Team Description 08/12/2025 Telephone Adult [address] [phone] Hong Griffith MD 07/22/2025 Telephone Adult Medicine [address] [phone] Yoly Amador LPN 07/16/2025 Telephone Adult [address] [phone] Nereyda Ramos MA 06/07/2025 [facility] [address] [phone] Elicia Short MA 06/05/2025 10:00 AM EDT Office Visit Adult Medicine [address] [phone] Astrid Mejía, ION Down syndrome (Primary Dx); Hypothyroidism, unspecified type; Postural hypotension; Chronic constipation 06/03/2025 1:00 PM EDT Consult Gastroenterology - [place] [facility] 175 [facility] [address] [place] [address] Xin Blake NP Chronic constipation (Primary Dx); Celiac disease; Gastroesophageal reflux disease without esophagitis from Last 3 Months Immunizations Immunization Administration Dates Next Due Influenza Quadravalent, MDCK [...] aortic stenosis 03/25/2021 Osteoporosis 10/29/2016 Dr. Dillon; [facility] Endocrine - BMD on 12/2014 with T-score -3.3 (hip) and -3.2 (spine) Postural hypotension 10/30/2018 Bicuspid aortic valve 08/11/2018 Colon polyp 08/17/2023 Colonoscopy in 2 015. Singular polyp. Advised to repeat in 10 years. 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 Dillon; [facility] Endocrinology Social History Tobacco Use Types Packs/Day Years Used Date Smoking Tobacco: Never Smokeless Tobacco: Never Tobacco Cessation:Counseling Given: Not Answered Alcohol Use Standard Drinks/Week Comments No 0 (1 standard drink = 0.6 oz pur e alcohol) Housing Instability Answer Date Recorde d Are you worried that in the next 2 months you may not have stable housing? No 04/02/2025 Food Access & Nutrition Answer Date Rec orded Do you have access to a vari ety of food including fruits and vegetables? Yes 04/02/2025 Access to Healthcare Answer Date Record ed Within the last 3 months, ho w many times did you visit the emergency department for your medical care? 1 04/02/2025 Health Literacy Answer Date Recorded How often do you need to hav e someone help you when you read instructions, pamphlets, or other written material from your doctor or pharmacy? Always 04/02/2025 Caregiver: How often do you need to have someone help you when you read instructions, pamphlets, or other written material from your doctor or pharmacy? Not on file 04/02/2025 Financial Risk Answer Date Recorded How hard is it for you to pa y for the very basics like food, housing, medical care, and air conditioning / heating? Not very hard 04/02/2025 Transportation Answer Date Recorded Has the lack of transportati on kept you from meetings, work, or from getting things needed for daily living? No Has the lack of transportati on kept you from medical appointments or from getting medications? No 04/02/2025 Social Isolation Answer Date Recorded How often do you feel lonely or isolated from those around you? Sometimes 04/02/2025 Food Risk Answer Date Recorded Within the past 12 months we worried whether our food would run out before we got money to buy more. Never true 04/02/2025 Within the past 12 months th e food we bought just didn't last and we didn't have money to get more. Never true 04/02/2025 Dependent Care Answer Date Recorded Do you need help finding or paying for care for your loved ones. For example, childcare attendant or elderly care for an older adult? No 04/02/2025 Education Answer Date Recorded Do you think completing more education or training, like finishing a GED, going to college, or learning a trade, would be helpful for you? No 04/02/2025 Employment and Income Answer Date Recor ded During the last four weeks, have you been actively looking for work? No 04/02/2025 Living Situation Answer Date Recorded What is your living situation? Unrecognized valu e 04/02/2025 Sex and Gender Information Value Date Recorded Sex Assigned at Not on file Legal Sex Male 7:52 PM EST Gender Identity Not on file Sexual Orientation Not on file Obstetrics History Last Filed Vital Signs Vital Sign Reading Time Taken Comments Blood Pressure 102/67 06/05/2025 9:53 AM EDT Pulse 76 06/05/2025 9:53 AM EDT Temperature 36.6 C (97.9 F) 06/05/2025 9:53 AM EDT Respiratory Rate 16 06/05/2025 9:53 AM EDT Oxygen Saturation 93% 06/05/2025 9:53 AM EDT Inhaled Oxygen Concentration - - Weight 49 kg (108 lb) 06/05/2025 9:53 AM EDT Height 147.3 cm (4' 10 ) 06/05/2025 9:53 AM EDT Body Mass Index 22.57 06/05/2025 9:53 AM EDT Plan of Treatment Upcoming Encounters Date Type Department Care Team (Late st Contact Info) Description 09/03/2025 10:00 AM EDT Office Visit Gastroenterology - [place] [facility] 175 [facility] [address] [place] [phone] Xin Blake NP 175 [facility] [address] [place] [address] 12/06/2025 10:00 AM EST Office Visit Adult Medicine [facility] [address] [place] [address] Susana Olivas PA [address] [place] [address] Health Maintenance Due Date Last Done Comments Zoster Vaccines (1 of 2) 2011 Pneumococcal Vaccine: 50+ Years (2 of 2 - PCV) 06/18/2019 06/18/2018, 11/11/2010 HIV Screening 10/23/2022 Medicare Annual Wellness Visit 10/23/2022 COVID-19 Vaccine ( season) 2025 10/30/2021, 01/19/2021, 12/18/2020 Influenza Vaccine (#1) 2025 , 08/17/2023, 08/16/2022, Additional history exists Colorectal Cancer Screening: Colonoscopy 11/11/2025 11/11/2015 Social Influencers of Health Screening 04/02/2026 04/02/2025 Cholesterol Screening (Lipid Panel) 08/27/2029 08/27/2024, 08/27/2024 DTaP,Tdap,and Td Vaccines (3 - Td or Tdap) 12/03/2031 12/03/2021, 11/24/2010 RSV Immunization Adult Patients (1 - 1-dose 75+ series) 01/16/2036 Hepatitis C Screening Completed 01/12/2017 Depression Screening Completed 04/02/2025, 08/23/20 24 HIB Vaccines Aged Out No longer eligi [...] Procedure Name Priority Date/Time Associated Diagnosis Comments TRIIODOTHYRONINE FREE Routine 06/05/2025 10:45 AM EDT Hypothyroidism, unspecified type FREE THYROXINE WITH REFLEX TO FREE TRIIODOTHYRONINE Routine 06/05/2025 10:45 AM EDT Hypothyroidism, unspecified type BASIC METABOLIC PANEL Routine 06/05/2025 10:45 AM EDT Postural hypotension THYROID STIMULATING HORMONE WITH REFLEX TO FREE T4 AND FREE T3 Routine 06/05/2025 10:45 AM EDT Hypothyroidism, unspecified type LIPID PANEL Routine 08/27/2024 DEPRESSION SCREENING Routine 08/23/2024 HEPATITIS C SCREENING Routine 01/12/2017 COLONOSCOPY Routine 11/11/2015 from Last 3 Months or Most Recently Relevant to Health Maintenance Results * (ABNORMAL) Thyroid stimulating hormone with reflex to free t4 and free t3 (06/05/2025 10:45 AM EDT) TSH 8.09(H) 0.40 - 4.00 mcIU/mL LAB CHEMISTRY METHOD 06/05/2025 4:22 PM EDT [facility] Blood Venous blood specimen / Unknown Venipuncture / Unknown 06/05/2025 10:45 AM EDT 06/05/2025 10:45 AM EDT us Astrid Mejía RIB TRIM SEPARATOR LAB BLOOD ORDERABLES Final Re sult Performing Organization Address [facility] Co de Phone Number [facility] [address] [place] [address], [place] [phone] * Free thyroxine with reflex to free triiodothyronine (06/05/2025 10:45 AM EDT) Free T4 1.25 0.70 - 1.80 ng/dL LAB CHEMISTRY METHOD 06/05/2025 5:08 PM EDT [facility] Blood Venous blood specimen / Unknown Venipuncture / Unknown 06/05/2025 10:45 AM EDT 06/05/2025 10:45 AM EDT us Astrid Mejía NP LAB BLOOD ORDERABLES Final Re sult Performing Organization Address [facility] Phone Number [facility] [address] [place] [address], [place] [phone] * Triiodothyronine free (06/05/2025 10:45 AM EDT) T3, Free 283 230 - 420 pcg/dL LAB CHEMISTRY METHOD 06/05/2025 6:07 PM EDT [facility] Blood Venous blood specimen / Unknown Venipuncture / Unknown 06/05/2025 10:45 AM EDT 06/05/2025 10:45 AM EDT us Astrid Mejía RIB TRIM SEPARATOR LAB BLOOD ORDERABLES Final Re sult [facility] [address] [place] [address], * Basic metabolic panel (06/05/2025 10:45 AM EDT) Sodium 138 133 - 145 mmol/L LAB CHEMISTRY METHOD 06/05/2025 3:01 PM [facility] Potassium 4.4 3.5 - 5.5 mmol/L LAB CHEMISTRY METHOD 06/05/2025 3:01 PM [facility] Chloride 102 96 - 110 mmol/L LAB CHEMISTRY METHOD 06/05/2025 3:01 PM [facility] CO2 32 21 - 32 mmol/L LAB CHEMISTRY METHOD 06/05/2025 3:01 PM [facility] Anion Gap 4 3 - 11 LAB CHEMISTRY METHOD 06/05/2025 3:01 PM [facility] Glucose 89 70 - 100 mg/dL LAB CHEMISTRY METHOD 06/05/2025 3:01 PM [facility] BUN 20 5 - 25 mg/dL LAB CHEMISTRY METHOD 06/05/2025 3:01 PM [facility] Creatinine 1.07 0.70 - 1.30 mg/dL LAB CHEMISTRY METHOD 06/05/2025 3:01 PM [facility] eGFR 77 >=60 mL/min/1. 73m2 LAB CHEMISTRY METHOD 06/05/2025 3:01 PM [facility] Comment:Calculation based on the Chronic Kidney Disease Epidemiology Collaboration (CKD-EPI) equation refit without adjustment for race. BUN/Creatinine Ratio 18.7 LAB CHEMISTRY METHOD 06/05/2025 3:01 PM [facility] Calcium 9.2 8.5 - 10.5 mg/dL LAB CHEMISTRY METHOD 06/05/2025 3:01 PM [facility] Blood Venous blood specimen / Unknown Venipuncture / Unknown 06/05/2025 10:45 AM EDT 06/05/2025 10:45 AM EDT Astrid Mejía RIB TRIM SEPARATOR LAB BLOOD ORDERABLES Final Re sult [facility] [address] [place] [address], * Lipid panel (08/27/2024) [facility] LDL/HDL Ratio 3 <=4 Triglycerides 85 0 - 150 mg/dL Cholesterol 161 0 - 200 mg/dL HDL 51 >=40 mg/dL LDL Cholesterol 93 0 - 100 mg/dL Blood Venous blood specimen / Unknown Historical Provider LAB BLOOD ORDERABLES Radha l Result * Depression Screening (08/23/2024) Pathologist [facility] Depression Screening abstracted Historical Provider HEALTH MAINTENANCE Final Result * Hepatitis C Screening (01/12/2017) [facility] Hepatitis C Screening abstracted Historical Provider HEALTH MAINTENANCE Final Result * Colonoscopy (11/11/2015) [facility] Colonoscopy no interpretation , abstracted Anatomical Region Laterality Modality Other Historical Provider HEALTH MAINTENANCE Final Result from Last 3 Months or Most Recently Relevant to Health Maintenance Insurance MEDICARE [place]ICAID [place] Care Teams Curator [employer] Relationship Specialty Start Date End Date Hong Griffith MD PCP - General 10/20/10
--- OUTSIDE RECORDS SUMMARY | 2025-08-13 20:18 | XMS_ITS | Encounter Summary ---
Author Organization [facility] Address [address] [facility] [address] [place] [phone] Phone Care Team Providers Care Manager Of School Name Role Phone Hong Griffith MD Primary Care Provider + Encounter Details Date Type Department Care Team (Late st Contact Info) Description 06/15/2018 Procedure Pass [facility], Ct Scan - [address] [address] Social History Tobacco Use Types Packs/Day Years Used Date Smoking Tobacco: Never Assessed Sex and Gender Information Value Date Recorded Sex Assigned at Male 08/02/2024 11:00 AM EDT Legal Sex Male 11:57 AM EDT Gender Identity Male 08/02/2024 11:00 AM EDT Sexual Orientation Not on file documented as of this encounter Plan of Treatment Upcoming Encounters Date Type Department Care Team (Late st Contact Info) Description 07/10/2026 1:00 PM EDT Office Visit [facility] Medical Genetics [address] [place] [address], [address] [place] [address] Ruiz Alcala MD, MPH [address] [facility] [place] [address] [email or web address] 07/10/2026 1:00 PM EDT Social Work [facility] Social Service Department [address] [place] [address] Ruiz Alcala MD, MPH [address] [facility] [place] [address] [email or web address] Glass [address] [place] [address] [email or web address] 07/10/2026 2:00 PM EDT Nutrition [facility] Medical Genetics [address] [facility], [address] [place] [address] Ruiz Alcala MD, MPH [address] [facility] [place] [address] [email or web address] phoenixmonse medeirosp[facility]mont [facility] Hanh Lopez LDN [address] [place] [phone] [email or web address] documented as of this encounter Visit Diagnoses Not on filedocumented in this encounter Care Teams Manager Of School Relationship Specialty Start Date End Date Hong Griffith MD [address] [place] [id number] PCP - General Internal Medicine 05/25/18 documented as of this encounter Additional Source Comments The information contained in this document represents components of the legal health record. It is not the complete legal health record.[facility]
--- OUTSIDE RECORDS SUMMARY | 2025-08-13 20:18 | XMS_ITS | Encounter Summary ---
Author Organization [facility] Address [address] [facility] [address] [place] [address] Phone Care Team Providers Care Salesperson Driver Name Role Phone Hong Griffith MD Primary Care Provider + Encounter Details Date Type Department Care Team (Late st Contact Info) Description 06/15/2018 Procedure Pass [facility], Ct Scan - [address] [address] Social History Tobacco Use Types Packs/Day Years [...] Description 07/10/2026 1:00 PM EDT Office Visit [facility] Medical Genetics [address] [place] [address], [address] [place] [address] Ruiz Alcala MD, MPH [address] [facility] [place] [address] [email or web address] 07/10/2026 1:00 PM EDT Social Work [facility] Social Service Department [address] [place] [address] Ruiz Alcala MD, MPH [address] [facility] [place] [address] [email or web address] [email or web address] Glass [address] [place] [address] [email or web address] 07/10/2026 2:00 PM EDT Nutrition [facility] Medical Genetics [address] [facility], [address] [place] [address] Ruiz Alcala MD, MPH [address] [facility] [place] [address] [email or web address] centermonse medeiroschildren[facility] Hanh Lopez LDN [address] [place] [phone] [email or web address] documented as of this encounter Visit Diagnoses Not on filedocumented in this encounter Care Teams Salesperson Driver Relationship Specialty Start Date End Date Hong Griffith MD [address] [place] [address] PCP - General Internal Medicine 05/25/18 documented as of this encounter Additional Source Comments The information contained in this document represents components of the legal health record. It is not the complete legal health record.[facility]
--- OUTSIDE RECORDS SUMMARY | 2025-08-13 20:18 | XMS_ITS | Encounter Summary ---
Author Organization [facility] Address [address] [place] [address] Care Team Providers Care Aircraft Electrician Name Role Phone Hong Griffith MD Primary Care Provider [phone] Reason for Visit * Reason Onset Date Comments faxed order 08/12/2025 [facility] med order Encounter Details Date Type Department Care Team ([facility] Contact Info) Description 08/12/2025 Telephone Adult Medicine [address] [phone] Hong Griffith MD [address] [place] [address] Social History Tobacco Use Types Packs/Day Years [...] Record ed Within the last 3 months, michael العراقي many times did you visit the emergency [...] care for your loved ones. For example, children's aide or elderly care for an older adult? [...] of this encounter Progress Notes * Senait Colon - 08/12/2025 11:04 AM EDT [facility] med order received please sign and to [phone] documented in this encounter Plan of Treatment Upcoming Encounters Date Type Department Care Team (Late st Contact Info) Description 09/03/2025 10:00 AM EDT Office Visit Gastroenterology - [place] 175 [facility] 175 [facility] [address] [place] [address] Xin Blake NP 175 [facility] [address] [place] [address] 12/06/2025 10:00 AM EST Office Visit Adult Medicine [facility] [address] [place] [address] Susana Olivas PA [address] [place] [address] documented as of this encounter Visit Diagnoses Not on filedocumented in this encounter Additional Health Concerns Assessment Noted Time PHQ-9 Depression Total Score: 1 04/02/20 25 11:12 AM EDT documented as of this encounter Care Teams Aircraft Electrician Relationship Specialty Start Date End Date Hong Griffith MD PCP - General 10/20/10 documented as of this encounter
--- OUTSIDE RECORDS SUMMARY | 2025-08-13 20:18 | XMS_ITS | Encounter Summary ---
Author Organization [facility] Address [address] [place] [id number] Phone Care Team Providers Care Periodontist Name Role Phone Hong Griffith MD Primary Care Provider + Encounter Details Date Type Department Care Team (Late st Contact Info) Description 06/15/2018 Procedure Pass [facility], Ct Scan - [address] [address] Social History Tobacco Use Types Packs/Day Years [...] Description 07/10/2026 1:00 PM EDT Office Visit [facility] Medical Genetics [address] [place] [address], [address] [place] [address] Ruiz Alcala MD, MPH [address] [facility] [place] [address] [email or web address] 07/10/2026 1:00 PM EDT Social Work [facility] Social Service Department [address] [place] [id number] Ruiz Alcala MD, MPH [address] [facility] [place] [address] [email or web address] Glass [address] [place] [phone] [email or web address] 07/10/2026 2:00 PM EDT Nutrition [facility] Medical Genetics [address] [facility], [address] [place] [address] Ruiz Alcala MD, MPH [address] [facility] [place] [address] [email or web address] [place] Hanh Lopez LDN [address] [place] [id number] [email or web address] documented as of this encounter Visit Diagnoses Not on filedocumented in this encounter Care Teams Periodontist Relationship Specialty Start Date End Date Hong Griffith MD [address] [place] [id number] PCP - General Internal Medicine 05/25/18 documented as of this encounter Additional Source Comments The information contained in this document represents components of the legal health record. It is not the complete legal health record.[facility]
--- NOTE | 2025-08-13 20:23 | MHC.EDTECH ---
2 techs attempted EKG on Pt, Pt swatted at this tech and kept mouthing no and pulling blanket over his body. Also would not let us get blood work. RN is aware of delay in EKG and labs.
--- NOTE | 2025-08-13 20:37 | PC.NURSE ---
Multiple staff attempted to obtain EKG & labs without success. Patient is non-verbal and physically resists many treatments such as blood work, vitals, etc. per [facility] staff. [facility] staff member at bedside. Awaiting ED provider evaluation.
[2025-08-13 20:59] LABS: MANUAL DIFF FLAG NO
[2025-08-13 21:02] LABS: Hematocrit 35.7 % (42.0-52.0); Hemoglobin 12.2 g/dl (14.0-18.0); Imm Gran Abs Auto 0.01 X10*3/uL (0.00-0.03); Imm Gran Pct Auto 0.2 % (0.0-0.4); Lymphocytes Absolute Auto 1.9 X10*3/uL (1.2-4.9); Mean Corpuscular HGB Conc 34.2 g/dl (31.0-36.0); Mean Corpuscular Hemoglobin 34.8 pg (27.0-33.0); Mean Corpuscular Volume 101.7 fL (80.0-98.0); NRBC Abs Auto 0.000 X10*3/uL (0.0-0.012); NRBC Pct Auto 0.0 /100WBC (0.0-0.2); Platelet Count 161 X10*3/uL (160-400); Red Blood Count 3.51 X10*6/uL (4.60-5.80); White Blood Count 4.8 X10*3/uL (4.8-10.8)
[2025-08-13 21:15] LABS: Anion Gap 11 (12-20); Blood Urea Nitrogen 19 mg/dL (9-16); Calcium 9.4 mg/dL (8.4-10.2); Carbon Dioxide 29 mmol/L (22-29); Chloride 105 mmol/L (96-108); Creatinine Clr Calc Pharmacy 49.9; Estimated Glomerular Filt Rate > 60; Magnesium 2.1 mg/dL (1.6-2.6); Potassium 4.6 mmol/L (3.3-5.1); Sodium 140 mmol/L (135-145)
[2025-08-13 21:22] LABS: Troponin-I High Sensitivity 4.9 ng/L (<3.5-35.0)
--- NOTE | 2025-08-13 21:45 | PC.NURSE ---
Patient nauseous, attempting to spit on ground. Given emesis bag, dry heaving. KRISTEL Mccann to bedside, ordering Zofran ODT & Chest Xray. [facility] staff member at bedside states that she's unsure if the patient has been ill recently.
--- NOTE | 2025-08-13 21:47 | ED.GENADULT ---
HPI - General Adult General Chief complaint: Fall Stated complaint: Fall w/ HS, - LOC, weakness Time Seen by Provider: 08/13/25 21:30 Source: other (Per caregiver, who is a poor historian) Limitations: no limitations History of Present Illness ED Provider: Janna Mccann PA-C HPI narrative: 65-year-old male with a history of chronic constipation, Down syndrome who presents after mechanical fall. The caregiver who is currently at bedside, is not offering detailed information in regard to the fall. She states she has the overnight traffic personnel supervisor. She reports that the patient has not been feeling well, he has had poor oral intake over the past few days, with the associated fatigue. He was standing, subsequently tripped falling backwards hitting his head on a desk. The patient is seemingly complaining of head pain. The patient is actively attempting to expel fixed sputum in the hallway, the caregiver does not know if the patient has had recent cough or cold symptoms. The patient does not use a blood thinner and there was no loss of consciousness, the fall was witnessed. Related Data Home Medications ?Medication ?Instructions ?Recorded ?Confirmed bacitracin 500 unit/gram topical 1 appl topical TID PRN MINOR 04/08/23 08/13/25 ointment CUTS/SCRAPES/ABRASIONS lorazepam 1 mg tablet (Ativan) 1 mg PO DAILY PRN AGITATION WITH 04/08/23 08/13/25 PODIATRY APPT mirtazapine 7.5 mg tablet 7.5 mg PO BEDTIME 04/08/23 08/13/25 acetaminophen 325 mg tablet 325 mg PO Q4H PRN 11/08/24 08/13/25 HEADACHE/BODYACHE/JOINT PAIN/FEVER calcitriol 0.5 mcg capsule 0.5 mcg PO DAILY 11/08/24 08/13/25 calcium 600 mg (as 1 tab PO BID@1200,2000 11/08/24 08/13/25 carbonate)-vitamin D3 5 mcg (200 unit) tablet divalproex 250 mg tablet,delayed 250 mg PO BID 11/08/24 08/13/25 release docusate sodium 100 mg capsule 100 mg PO BID 11/08/24 08/13/25 (Colace) fluvoxamine 50 mg tablet 50 mg PO BID 11/08/24 08/13/25 levothyroxine 112 mcg tablet 112 mcg PO DAILY@0630 11/08/24 08/13/25 menthol 0.44 %-zinc oxide 20.6 % 1 appl topical BID PRN SKIN 11/08/24 08/13/25 topical ointment (Calmoseptine) BREAKDOWN midodrine 2.5 mg tablet 10 mg PO TID@0800,1200,1600 11/08/24 08/13/25 multivitamin-ferrous 1 tab PO DAILY 11/08/24 08/13/25 fumarate-folic acid 18 mg-400 mcg tablet (Tab-A-Tho Multivitamin w-iron) polyethylene glycol 3350 17 gram 17 g PO DAILY 11/08/24 08/13/25 oral powder packet (Miralax) quetiapine 25 mg tablet 75 mg PO BID@0800,1200 11/08/24 08/13/25 tamsulosin 0.4 mg capsule 0.4 mg PO BEDTIME 11/08/24 08/13/25 testosterone 1.62 % (20.25 mg/1.25 1 packet transdermal MOWEFR@0900 11/08/24 08/13/25 gram) transdermal gel packet (AndroGel) zinc oxide-vitamin B5-vit E 11.3% 1 appl topical BEDTIME 11/08/24 08/13/25 topical cream (Balmex Adult Care) esomeprazole magnesium 20 mg 20 mg PO DAILY 08/13/25 08/13/25 capsule,delayed release (Nexium) lactulose 10 gram/15 mL oral 20 g PO BID 08/13/25 08/13/25 solution (Enulose) zinc oxide-vitamin B5-vit E 11.3% 1 appl topical BEDTIME 08/13/25 08/13/25 topical cream (Balmex Complete Protection) Allergies Allergy/AdvReac Type Severity Reaction Status Date / Time gluten (GLUTEN) Allergy Unknown UNK Verified 08/13/25 20:09 Iodinated Contrast Media Allergy Unknown UNK Verified 08/13/25 20:09 (IVP DYE) Review of Systems Review of Systems: Unable to obtain secondary to patient's underlying cognitive impairment and the caregiver as a poor historian Yes all other systems are reviewed and are negative PMFSH Past Medical History Attestation statement: The following information was validated with the patient. Medical History Alzheimer's dementia Down syndrome Celiac disease Social History Social History Unable to assess alcohol history related to: Unable to respond Patient Tobacco Use Status: Never used Tobacco Smoked in Last 30 Days: No Use of substances other than those prescribed or required for medical reasons: Unable to respond Advance Directives: Yes Advance Directives on File: Yes Advance Directives Date on File: 11/08/24 service: No Physical Exam ED Vital Signs: Vital Signs - 24 hr 08/13/25 20:07 08/13/25 23:23 Temperature 97.7 F 98.3 F Pulse Rate 61 65 Respiratory Rate 16 16 Blood Pressure 126/77 109/64 Pulse Oximetry 100 96 Oxygen Delivery Method Room Air Room Air BMI result Body Mass Index 23.0 Const Other: Alert well-appearing no evidence of head trauma on exam Orientation/consciousness: oriented to person Resp Other: Nonlabored respirations, the patient is actively attempting to cough up thick sputum, unable to participate in Respiratory exam, he can not follow the directions, no obvious adventitious lung sounds posterior camilo Cardio Other: Normal peripheral perfusion Skin Other: Warm dry no rash Neuro General: oriented to person, no focal motor deficits and CN's II-XI intact bilaterally Extrem Other: Moving all extremities independently Psych Other: Cooperative Course Reevaluation(s) Reevaluation #1: Anika garcia is the legal guardian, .... Left a message on her phone Time: 21:47 Reevaluation #2: Updating the legal guardian,Left a message on her phone Time: 00:18 Medications Administered Discontinued Medications Generic Name Dose Route Start Last Admin Trade Name Vargas PRN Reason Stop Dose Admin Ondansetron HCl 4 mg 08/13/25 21:45 08/13/25 21:53 Ondansetron Odt 4 Mg Tab.Rapdis TRANSLINGU 08/13/25 21:46 4 mg ONCE ONE Administration Medical Decision Making Medical Decision Making MDM Narrative: 65-year-old male with a history of chronic constipation, Down syndrome who presents after mechanical fall. The caregiver who is currently at bedside, is not offering detailed information in regard to the fall. She states she has the overnight traffic personnel supervisor. She reports that the patient has not been feeling well, he has had poor oral intake over the past few days, with the associated fatigue. He was standing, subsequently tripped falling backwards hitting his head on a desk. The patient is seemingly complaining of head pain. The patient is actively attempting to expel fixed sputum in the hallway, the caregiver does not know if the patient has had recent cough or cold symptoms. The patient does not use a blood thinner and there was no loss of consciousness, the fall was witnessed. Problem: Down syndrome History: Per caregiver which is limited I have considered the following differential diagnoses: Intracranial hemorrhage, viral syndrome, pneumonia Plan: Given the mechanism of injury, I have very low suspicion for intracranial hemorrhage. The patient is not altered from his baseline he has no neurologic deficits he is not actively vomiting he is not on a thinner there was no loss consciousness. The patient is unable to verbalize his symptoms, he is not a reliable historian, I am scanning his head. He does have a productive cough, we will obtain a chest x-ray and add on a viral panel. Other screening labs were ordered from triage. I have independently reviewed the following tests: Labs: No leukocytosis, not anemic, no electrolyte abnormality, troponin 4.9, delta troponin 6.2, covid neg EKG: With the help normal sinus rhythm, rate of 65, no ischemic changes no ectopy QTC 455 Chest x-ray:1 view chest x-ray Comparison: None Findings: Two images were obtained. Lungs are clear without acute infiltrates. No pneumothorax. Heart size normal. No acute bony abnormalities. Impression: No acute processes CT brain:Findings: No intracranial mass, midline shift, hydrocephalus, or acute hemorrhage. Mild chronic ischemic white matter disease with mild volume loss. No acute process in sinuses or mastoids. No acute bony abnormality. Impression: No acute intracranial process Differential Diagnosis Differential Diagnoses: The differential diagnosis associated with the presentation includes See medical decision-making Admission/Observation Consideration of admission/observation: Escalation of care including admission/observation considered Not applicable Lab Data MDM Lab Attestation statement: I reviewed the patient's lab results. 08/13/25 20:50 08/13/25 20:50 Labs: Lab Results 08/13/25 08/13/25 08/13/25 Range/Units 20:50 21:52 22:30 WBC 4.8 (4.8-10.8) X10*3/uL RBC 3.51 L (4.60-5.80) X10*6/uL Hgb 12.2 L (14.0-18.0) g/dl Hct 35.7 L (42.0-52.0) % MCV 101.7 H (80.0-98.0) fL MCH 34.8 H (27.0-33.0) pg MCHC 34.2 (31.0-36.0) g/dl RDW 14.1 (11.0-16.0) % Plt Count 161 D (160-400) X10*3/uL MPV 9.8 (9.4-12.4) fL Immature Gran % (Auto) 0.2 (0.0-0.4) % Neut % (Auto) 50.6 (45-73) % Lymph % (Auto) 40.1 H (20-40) % Sabine % (Auto) 8.3 (2-11) % Eos % (Auto) 0.4 (0-4) % Baso % (Auto) 0.4 (0-2) % Lymph # (Auto) 1.9 (1.2-4.9) X10*3/uL Sabine # (Auto) 0.4 (0.1-1.2) X10*3/uL Eos # (Auto) 0.0 (0.0-0.4) X10*3/uL Baso # (Auto) 0.0 (0.0-0.2) X10*3/uL Abs Immat Gran (auto) 0.01 (0.00-0.03) X10*3/uL Absolute Neuts (auto) 2.5 (2.0-8.3) x10*3/uL Absolute Nucleated RBC 0.000 (0.0-0.012) X10*3/uL Nucleated RBC % (auto) 0.0 (0.0-0.2) /100WBC Sodium 140 (135-145) mmol/L Potassium 4.6 (3.3-5.1) mmol/L Chloride 105 (96-108) mmol/L Carbon Dioxide 29 (22-29) mmol/L Anion Gap 11 L (12-20) BUN 19 H (9-16) mg/dL Creatinine 0.96 (0.5-1.4) mg/dL Estim Creat Clear Calc 49.9 Estimated GFR > 60 Random Glucose 122 H (60-115) mg/dL Calcium 9.4 (8.4-10.2) mg/dL Magnesium 2.1 (1.6-2.6) mg/dL Troponin I High Sens 4.9 6.2 (<3.5-35.0) ng/L COVID-19 (MARYLOU) Negative (Negative) COVID-19 Clin Com See Note Radiology Impression Discussion of test interpretation with radiology: I have reviewed the radiologist's reading. Discharge Plan Discharge Clinical Impression: Contusion of head Patient Disposition: Home, Self-Care Instructions: Contusion in Adults (ED) Additional Instructions: All of your screening labs were normal, the chest x-ray was clear there was no pneumonia. The head CT was negative for acute injury. You sustained a contusion. See home care instructions. Follow up with your primary care provider as needed. Prescriptions: No Action quetiapine 25 mg tablet 75 mg PO BID@0800,1200 acetaminophen 325 mg Tablet 325 mg PO Q4H PRN (Reason: HEADACHE/BODYACHE/JOINT PAIN/FEVER) divalproex 250 mg tablet,delayed release (DR/EC) 250 mg PO BID polyethylene glycol 3350 [Miralax] 17 gram Powder In Packet 17 g PO DAILY calcium carbonate-vitamin D3 600 mg-5 mcg (200 unit) Tablet 1 tab PO BID@1200,2000 tamsulosin 0.4 mg capsule 0.4 mg PO BEDTIME calcitriol 0.5 mcg capsule 0.5 mcg PO DAILY docusate sodium [Colace] 100 mg Capsule 100 mg PO BID midodrine 2.5 mg tablet 10 mg PO TID@0800,1200,1600 fluvoxamine 50 mg tablet 50 mg PO BID levothyroxine 112 mcg tablet 112 mcg PO DAILY@0630 Balmex Adult Care 11.3 % Cream 1 appl TOPICAL BEDTIME Rx Instructions: apply a thin layer to rash in groin Tab-A-Tho Multivitamin w-iron 18-400 mg-mcg Tablet 1 tab PO DAILY menthol-zinc oxide [Calmoseptine] 0.44-20.6 % Ointment 1 appl TOPICAL BID PRN (Reason: SKIN BREAKDOWN) testosterone [AndroGel] 1.62 % (20.25 mg/1.25 gram) Gel In Packet 1 packet TRANSDERMAL MOWEFR@0900 Rx Instructions: apply to max area of ONE upper arem and shoulder esomeprazole magnesium [Nexium] 20 mg Capsule,Delayed Release(Dr/Ec) 20 mg PO DAILY lactulose [Enulose] 10 gram/15 mL Solution 20 g PO BID Balmex Complete Protection 11.3 % Cream 1 appl TOPICAL BEDTIME mirtazapine 7.5 mg tablet 7.5 mg PO BEDTIME lorazepam [Ativan] 1 mg tablet 1 mg PO DAILY PRN (Reason: AGITATION WITH PODIATRY APPT) bacitracin 500 unit/gram ointment 1 appl topical TID PRN (Reason: MINOR CUTS/SCRAPES/ABRASIONS) Print Language: Sinhala
[2025-08-13 22:10] LABS: COVID-19 Test Negative (Negative); IDNOW Serial# 55D5AD1C
--- NOTE | 2025-08-13 22:51 | PC.NURSE ---
Repeat troponin level drawn sucessfully. Results pending.
[2025-08-13 22:58] LABS: Troponin-I High Sensitivity 6.2 ng/L (<3.5-35.0)
--- NOTE | 2025-08-13 23:12 | PC.NURSE ---
Took over care from VADIM Lu at 23:00
[2025-08-13 23:23] VITALS: BP 109/64; PULSE 65; RESP 16; TEMP 36.8; O2SAT 96
--- NOTE | 2025-08-13 23:41 | PC.NURSE ---
pt taken to CT Scan awaiting results and deposition.
--- NOTE | 2025-08-14 00:39 | PC.NURSE ---
Pt discharged by VADIM Richard, reviewed discharge instructions with detention staff, staff member verbalized understanding, no sign of distress, pt wheel out in wheelchair.
[2025-08-14 00:41] VITALS: BP 109/64; PULSE 65; RESP 16; TEMP 36.8; O2SAT 96
== END 2025-08-14 00:41 | disposition home or self-care (01) ==
PROVIDERS: Physician Assistant Medical; Emergency Provider Emergency Medicine
DX: S00.03XA Contusion of scalp, initial encounter (principal); W18.30XA Fall on same level, unspecified, initial encounter; Y93.9 Activity, unspecified; Y92.9 Unspecified place or not applicable; Q90.9 Down syndrome, unspecified; R53.1 Weakness; R05.9 Cough, unspecified; Z03.818 Encounter for observation for suspected exposure to other biological agents ruled out
CPT/HCPCS: 36415; 70450; 71045; 80048; 83735; 84484; 85025; 87635; 93005; 99284; 99285

== ENCOUNTER → 2025-08-13 21:16 | Outpatient (BNV) | payer MEDICARE, MEDICAID, SELFPAY | PROVIDERS: Emergency Provider Emergency Medicine; Visit Provider Internal Medicine | DX: R53.1 Weakness (principal); W19.XXXA Unspecified fall, initial encounter | CPT/HCPCS: 93010 ==

== ENCOUNTER → 2025-08-13 21:46 | Outpatient (BNV) | payer MEDICARE, MEDICAID, SELFPAY | PROVIDERS: Emergency Provider Emergency Medicine; Visit Provider Radiology Diagnostic Radiology | DX: R51.9 Headache, unspecified (principal); J18.9 Pneumonia, unspecified organism; W19.XXXA Unspecified fall, initial encounter | CPT/HCPCS: 70450; 71045 ==